=== PATIENT | female | born 1945 | race Caucasian/White ===

== ENCOUNTER → 2018-01-13 07:04 | Outpatient (CLI) | payer MEDICARE, SELFPAY ==
--- NOTE | 2018-01-13 07:07 | BI_ITS ---
MAMMOGRAPHY - BILATERAL SCREENING REASON FOR EXAM: Female, 72 years old. Routine annual screening examination. PERTINENT HISTORY: Non-contributory. TECHNIQUE: Digital bilateral breast fang (3D mammographic acquisition) in the CC and MLO projections. 2-D mediolateral oblique (MLO) and craniocaudad (CC) views of both breasts were obtained. CAD: Full Field Digital Mammography with Computer Added Detection was performed. COMPARISON: Comparison made with prior study examination December 30, 2013. FINDINGS: Breast Composition: The breasts are almost entirely fatty. There are no dominant masses or suspicious calcifications. No other significant abnormalities are identified. There has been no significant change since the prior study. BI/SCREENING MAMM (CAD), BILAT IMPRESSION: Stable bilateral screening mammogram. Yearly follow-up mammogram recommended. (A) ASSESSMENT CATEGORY: BIRADS Category 1: Negative. A letter regarding these results will be sent to the patient by the facility within 30 days. Approximately 10% of breast cancers are not detected by mammography. A normal mammogram should not delay biopsy of a clinically suspicious abnormality. [id number] Electronically Signed: Aris Ventura MD at 10:45 EDT Tel [phone], Service support ,
== END ==
PROVIDERS: Family Provider Internal Medicine; PCP Internal Medicine; Visit Provider Internal Medicine
DX: Z12.31 Encounter for screening mammogram for malignant neoplasm of breast (principal)
CPT/HCPCS: 77063; 77067

== ENCOUNTER → 2018-01-18 09:07 | Outpatient (CLI) | payer MEDICARE, SELFPAY ==
[2018-01-18 09:44] LABS: Absolute Neutrophil Count 5.2 X10^3/uL (2.0-7.7); Basophil# 0.07 X10^3/uL; Basophil% 0.7 % (0-1); Eosinophils% 9.3 % (0-5); Hematocrit 36.9 % (37-47); Hemoglobin 12.2 g/dl (12.0-15.0); Mean Corp Hgb Conc 33.1 g/gl (32-36); Mean Corpuscular Hgb 28.8 pg (27.0-32.0); Mean Corpuscular Volume 87.2 fL (81-99); Mean Platelet Vol. 9.9 fl (6.2-12.0); Monocyte# 0.61 X10^3/uL; Monocyte% 6.3 % (0-10); Neutrophil # 5.15 X10^3/uL (2.7-7.7); Neutrophil % 53.4 % (47-70); Platelet Count 340 K/mm3 (150-450); RBC Distribution Width CV 13.8 % (11.6-14.6); RBC Distribution Width SD 43.3 fl (35.1-43.9); Red Blood Count 4.23 M/mm3 (4.2-5.4); White Blood Count 9.7 K/mm3 (4.4-11.0)
[2018-01-18 09:45] LABS: POSITIVE COUNT NO; POSITIVE DIFFERENTIAL NO; POSITIVE MORPHOLOGY NO
[2018-01-18 10:09] LABS: Hemoglobin A1c 8.2 % (4.2-6.3)
[2018-01-18 10:45] LABS: ALB/GLOB Ratio 0.9 RATIO (0.9-2.4); AST(SGOT) 20 U/L (15-37); Alanine Aminotransfer ALT/SGPT 31 U/L (13-56); Albumin, Serum 3.5 g/dL (3.2-5.0); Alkaline Phosphatase 95 U/L (45-117); Anion Gap 8 (5-15); BUN 17 mg/dL (7-18); BUN/Creat Ratio 23.1 RATIO (10-20); Calcium,Total 8.7 mg/dL (8.5-10.1); Chloride 102 mmol/L (98-107); Cholesterol 168 mg/dL (200); Creatinine, Serum 0.74 mg/dL (0.55-1.02); EST Glomerular Filtration Rate 82 mL/min (>60); Est Glom Filt Rate - Afr Amer 99 mL/min (>60); Globulin 3.7 g/dL (2.2-4.2); Glucose 189 mg/dL (74-106); High Density Lipoprotein 38 mg/dL; Protein, Total 7.2 g/dL (6.4-8.2); Sodium Level 139 mmol/L (136-145); T4 Free Direct 0.97 ng/dL (0.76-1.46); Thyroid Stim Hormone (TSH) 1.08 uIU/mL (0.358-3.74); Triglycerides 273 mg/dL; Very Low Density Lipoprotein 55 mg/dL (5-40)
== END ==
PROVIDERS: Family Provider Internal Medicine; PCP Internal Medicine; Referring Provider Internal Medicine; Visit Provider Internal Medicine
DX: E11.9 Type 2 diabetes mellitus without complications (principal); E03.9 Hypothyroidism, unspecified; I10 Essential (primary) hypertension; J30.2 Other seasonal allergic rhinitis
CPT/HCPCS: 36415; 80053; 80061; 83036; 84439; 84443; 85025

== ENCOUNTER 2018-02-25 09:14 | Outpatient (RCR) | payer MEDICARE, SELFPAY | END 2018-02-26 23:59 | LOC: DC 09:14 | PROVIDERS: Family Provider Internal Medicine; PCP Internal Medicine; Referring Provider Internal Medicine; Visit Provider Internal Medicine | DX: E11.9 Type 2 diabetes mellitus without complications (principal); Z71.3 Dietary counseling and surveillance | CPT/HCPCS: G0108 ==

== ENCOUNTER 2018-03-01 08:52 | Outpatient (RCR) | payer MEDICARE, SELFPAY ==
[2018-01-22 14:26] VITALS: BMI 32.3
== END 2018-03-29 23:59 ==
LOC: DC 08:52
PROVIDERS: Family Provider Internal Medicine; PCP Internal Medicine; Referring Provider Internal Medicine; Visit Provider Internal Medicine
DX: E11.9 Type 2 diabetes mellitus without complications (principal); Z71.3 Dietary counseling and surveillance
CPT/HCPCS: 97802

== ENCOUNTER → 2018-04-22 09:33 | Outpatient (CLI) | payer MEDICARE, SELFPAY ==
[2018-03-03 10:43] VITALS: BMI 30.9
[2018-04-22 11:33] LABS: Hemoglobin A1c 7.7 % (4.2-6.3)
== END ==
PROVIDERS: Family Provider Internal Medicine; PCP Internal Medicine; Referring Provider Internal Medicine; Visit Provider Internal Medicine
DX: E11.9 Type 2 diabetes mellitus without complications (principal)
CPT/HCPCS: 36415; 83036

== ENCOUNTER 2018-04-26 14:00 | Outpatient (RCR) | payer MEDICARE, SELFPAY ==
[2018-03-03 10:43] VITALS: BMI 30.9
== END 2018-04-29 23:59 ==
LOC: DC 14:00
PROVIDERS: Family Provider Internal Medicine; PCP Internal Medicine; Referring Provider Internal Medicine; Visit Provider Internal Medicine
DX: E11.9 Type 2 diabetes mellitus without complications (principal); Z71.3 Dietary counseling and surveillance
CPT/HCPCS: 36415; 83036; 97803; G0108; G0109

== ENCOUNTER 2018-04-27 18:21 | Emergency (ER) | payer MEDICARE, SELFPAY ==
[2018-04-26 09:37] VITALS: BMI 30.9
[2018-04-27 18:22] VITALS: BP 165/76; PULSE 73; RESP 16; TEMP 36.7; O2SAT 96; BMI 31.4
--- NOTE | 2018-04-27 19:25 | RAD_ITS ---
STUDY: X-RAY - LEFT ELBOW REASON FOR EXAM: Female, 72 years old. Fall. Pain. TECHNIQUE: 3 view(s) of the elbow. COMPARISON: None. FINDINGS: There is no evidence of fracture or dislocation. There are no significant degenerative changes. There are no radiodense foreign bodies. RAD/Elbow min 3 Views IMPRESSION: No fracture or dislocation. Electronically Signed: Geraldo Matias, at 19:46 EST Tel , Service support ,
--- NOTE | 2018-04-27 19:59 | ED.VISSUMM ---
- ER Visit Summary Date of Service: 04/27/18 Chief Complaint: Elbow laceration History of Present Illness: The patient is a 72 F presents to the emergency department elbow injury. Patient was in her normal state of health. She is going outside her house and slipped on the handicap ramp. She fell striking her left elbow and slid down on her back. She struck her head but did not lose consciousness. She states she applied a dressing to the elbow, but is continued to bleed. She denies other injury. The patient's tetanus is up-to-date. She is otherwise been in her normal state of health. Physical Examination: Exam is relatively unremarkable. Patient is a 1 cm C-shaped laceration over the left elbow. She does have some pain with extension. Head is normal cephalic, atraumatic. Pupils equal round reactive. Neck nontender. Chest nontender. Abdomen soft nontender nondistended. Pelvis is stable. No other injuries. Test Results: [] Emergency Department Course and Treatment: X-rays were obtained. There is no evidence of acute fracture. The patient's wound was anesthetized. It was irrigated and closed with a mattress suture. She tolerated this without issue. She is placed in a bacitracin dressing. She will be discharged home. Treatment Plan: [] Disposition: Discharge Impression: 1. Left elbow laceration status post fall This note was generated with [employer] dictation software. It may contain incorrect words, spelling, and punctuation that were not noted in review of the chart prior to signing ED Disposition - Plan for ED Patient: Chief Complaint: Fall Instructions: ED Laceration All Referrals: Bubba Zhu MD [Primary Care Provider] - 10 Day for suture removal
[2018-04-27 20:34] VITALS: BP 148/98; PULSE 97; RESP 14; O2SAT 99
== END 2018-04-27 20:34 | disposition home or self-care (01) ==
LOC: ED 19:37
PROVIDERS: Emergency Provider Emergency Medicine; Family Provider Internal Medicine; PCP Internal Medicine
DX: S51.012A Laceration without foreign body of left elbow, initial encounter (principal); W10.2XXA Fall (on)(from) incline, initial encounter; Y93.01 Activity, walking, marching and hiking; Y92.008 Other place in unspecified non-institutional (private) residence as the place of occurrence of the external cause; I10 Essential (primary) hypertension
CPT/HCPCS: 12001; 73080; 99283

== ENCOUNTER 2018-05-12 12:16 | Outpatient (RCR) | payer MEDICARE, SELFPAY ==
[2018-04-30 01:29] VITALS: BMI 30.9
== END 2018-05-27 23:59 ==
LOC: DC 12:16
PROVIDERS: Family Provider Internal Medicine; PCP Internal Medicine; Referring Provider Internal Medicine; Visit Provider Internal Medicine
DX: E11.9 Type 2 diabetes mellitus without complications (principal); Z71.3 Dietary counseling and surveillance
CPT/HCPCS: G0109

== ENCOUNTER 2018-06-22 09:27 | Outpatient (RCR) | payer MEDICARE, SELFPAY ==
[2018-05-28 01:10] VITALS: BMI 31.4
== END 2018-06-27 23:59 ==
LOC: DC 09:27
PROVIDERS: Family Provider Internal Medicine; PCP Internal Medicine; Referring Provider Internal Medicine; Visit Provider Internal Medicine
DX: E11.9 Type 2 diabetes mellitus without complications (principal); Z71.3 Dietary counseling and surveillance
CPT/HCPCS: 97803

== ENCOUNTER 2018-07-01 09:28 | Outpatient (RCR) | payer MEDICARE, SELFPAY ==
[2018-05-28 01:10] VITALS: BMI 31.4
== END 2018-07-27 23:59 ==
LOC: DC 09:28
PROVIDERS: Family Provider Internal Medicine; PCP Internal Medicine; Referring Provider Internal Medicine; Visit Provider Internal Medicine
DX: E11.9 Type 2 diabetes mellitus without complications (principal); Z71.3 Dietary counseling and surveillance
CPT/HCPCS: G0109

== ENCOUNTER → 2018-07-20 09:39 | Outpatient (CLI) | payer MEDICARE, SELFPAY ==
[2018-05-28 01:10] VITALS: BMI 31.4
[2018-07-20 11:35] LABS: Microalbumin,Random Urine 24.2 mg/L (NO RANGE EST.); Microalbumin:Creatinine Ratio 22.2 mg/g CRE (<30 mg/g CRE)
[2018-07-20 11:49] LABS: Anion Gap 4 (5-15); BUN 18 mg/dL (7-18); BUN/Creat Ratio 28.1 RATIO (10-20); Calcium,Total 9.2 mg/dL (8.5-10.1); Chloride 104 mmol/L (98-107); Creatinine, Serum 0.64 mg/dL (0.55-1.02); EST Glomerular Filtration Rate 96 mL/min (>60); Est Glom Filt Rate - Afr Amer 116 mL/min (>60); Glucose 131 mg/dL (74-106); Potassium 3.8 mmol/L (3.5-5.1); Sodium Level 137 mmol/L (136-145)
[2018-07-20 11:58] LABS: Hemoglobin A1c 7.8 % (4.2-6.3)
== END ==
PROVIDERS: Family Provider Internal Medicine; PCP Internal Medicine; Referring Provider Internal Medicine; Visit Provider Internal Medicine
DX: E11.9 Type 2 diabetes mellitus without complications (principal)
CPT/HCPCS: 36415; 80048; 82043; 82570; 83036

== ENCOUNTER 2018-10-07 13:24 | Outpatient (RCR) | payer MEDICARE, SELFPAY ==
[2018-07-26 08:55] VITALS: BMI 31.4
== END 2018-10-07 23:59 | disposition home or self-care (01) ==
LOC: DC 13:24
PROVIDERS: Family Provider Internal Medicine; PCP Internal Medicine; Referring Provider Internal Medicine; Visit Provider Internal Medicine
DX: E11.9 Type 2 diabetes mellitus without complications (principal); Z71.3 Dietary counseling and surveillance
CPT/HCPCS: G0109

== ENCOUNTER → 2019-01-28 07:37 | Outpatient (CLI) | payer MEDICARE, SELFPAY ==
[2018-12-01 14:44] VITALS: BMI 31.4
[2019-01-28 08:10] LABS: Absolute Lymphocyte Count 3.25 X10^3/uL (0.83-4.51); Absolute Neutrophil Count 5.2 X10^3/uL (2.0-7.7); Basophil# 0.04 X10^3/uL; Basophil% 0.4 % (0-1); Eosinophil# 0.32 X10^3/uL; Eosinophils% 3.3 % (0-5); Hematocrit 35.3 % (37-47); Hemoglobin 11.5 g/dL (12.0-15.0); Lymphocyte # 3.25 X10^3/ul (4.0); Lymphocyte % 33.9 % (19-41); Mean Corp Hgb Conc 32.6 g/dL (32-36); Mean Corpuscular Volume 88.9 fL (81-99); Mean Platelet Vol. 9.8 fl (6.2-12.0); Monocyte# 0.76 X10^3/uL; Monocyte% 7.9 % (0-10); NRBC Flagged by Analyzer 0 % (0-5); Neutrophil % 54.2 % (47-70); Platelet Count 332 K/mm3 (150-450); RBC Distribution Width CV 13.2 % (11.6-14.6); RBC Distribution Width SD 42.9 fl (35.1-43.9); Red Blood Count 3.97 M/mm3 (4.2-5.4); White Blood Count 9.6 K/mm3 (4.4-11.0)
[2019-01-28 08:42] LABS: Hemoglobin A1c 7.6 % (4.2-6.3)
[2019-01-28 08:43] LABS: Microalbumin,Random Urine 17.8 mg/L (NO RANGE EST.); Microalbumin:Creatinine Ratio 13.3 mg/g CRE (<30 mg/g CRE)
[2019-01-28 08:53] LABS: AST(SGOT) 29 U/L (15-37); Alanine Aminotransfer ALT/SGPT 41 U/L (13-56); Albumin, Serum 3.7 g/dL (3.2-5.0); Alkaline Phosphatase 60 U/L (45-117); Anion Gap 7 (5-15); BUN 20 mg/dL (7-18); BUN/Creat Ratio 26.9 RATIO (10-20); Calcium,Total 9.3 mg/dL (8.5-10.1); Chloride 106 mmol/L (98-107); Cholesterol 180 mg/dL (200); Creatinine, Serum 0.74 mg/dL (0.55-1.02); EST Glomerular Filtration Rate 81 mL/min (>60); Est Glom Filt Rate - Afr Amer 98 mL/min (>60); Globulin 3.6 g/dL (2.2-4.2); Glucose 165 mg/dL (74-106); High Density Lipoprotein 47 mg/dL; Potassium 3.9 mmol/L (3.5-5.1); Protein, Total 7.3 g/dL (6.4-8.2); Sodium Level 141 mmol/L (136-145); Thyroid Stim Hormone (TSH) 0.82 uIU/mL (0.358-3.74); Triglycerides 233 mg/dL; Very Low Density Lipoprotein 47 mg/dL (5-40)
== END ==
PROVIDERS: Family Provider Internal Medicine; PCP Internal Medicine; Referring Provider Internal Medicine; Visit Provider Internal Medicine
DX: E11.9 Type 2 diabetes mellitus without complications (principal); E03.9 Hypothyroidism, unspecified
CPT/HCPCS: 36415; 80053; 80061; 82043; 82570; 83036; 84443; 85025

== ENCOUNTER → 2019-05-04 09:15 | Outpatient (CLI) | payer MEDICARE, SELFPAY ==
[2019-05-02 08:45] VITALS: BMI 31.6
--- NOTE | 2019-05-04 09:20 | RAD_ITS ---
STUDY: X-RAY - LEFT FOOT CLINICAL: Achilles tendon pain for 2 months, no specific injury. TECHNIQUE: 2 view(s) of the foot. COMPARISON: None. FINDINGS: There are posterior and plantar calcaneal enthesophytes. Otherwise, unremarkable talus, calcaneus, and tarsal bones. Normal visualized subtalar, talonavicular, calcaneocuboid, tarsal and tarsometatarsal articulations. Normal metatarsi. Normal metatarsophalangeal joint of the great toe. Normal tibial and fibular sesamoid bones. Normal interphalangeal joint of the great toe. Normal phalanges of the great toe. Normal second through fifth metatarsophalangeal joints. There is joint space narrowing of the interphalangeal joints and phalanges of the lesser toes. The soft tissue structures are unremarkable. 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 Electronically Signed: Richie Meehan MD at 10:47 EST Tel , Service support ,
== END ==
PROVIDERS: PCP Internal Medicine; Referring Provider Internal Medicine; Visit Provider Internal Medicine
DX: S86.012A Strain of left Achilles tendon, initial encounter (principal); X58.XXXA Exposure to other specified factors, initial encounter; M19.072 Primary osteoarthritis, left ankle and foot
CPT/HCPCS: 73620

== ENCOUNTER → 2019-10-07 09:20 | Outpatient (CLI) | payer MEDICARE, SELFPAY ==
[2019-08-10 09:22] VITALS: BMI 31.6
[2019-10-07 13:01] LABS: Anion Gap 5 (5-15); BUN 18 mg/dL (7-18); Calcium,Total 9.2 mg/dL (8.5-10.1); Chloride 101 mmol/L (98-107); Creatinine, Serum 0.78 mg/dL (0.55-1.02); EST Glomerular Filtration Rate 76 mL/min (>60); Est Glom Filt Rate - Afr Amer 92 mL/min (>60); Glucose 159 mg/dL (74-106); Potassium 4.2 mmol/L (3.5-5.1); Sodium Level 137 mmol/L (136-145)
[2019-10-07 13:08] LABS: Hemoglobin A1c 7.4 % (3.8-5.6)
== END ==
PROVIDERS: PCP Internal Medicine; Referring Provider Internal Medicine; Visit Provider Internal Medicine
DX: E11.9 Type 2 diabetes mellitus without complications (principal)
CPT/HCPCS: 36415; 80048; 83036

== ENCOUNTER → 2019-10-11 15:27 | Outpatient (CLI) | payer MEDICARE, SELFPAY ==
[2019-10-11 14:22] VITALS: BMI 31.6
[2019-10-11 17:13] LABS: Absolute Lymphocyte Count 3.32 X10^3/uL (0.83-4.51); Absolute Neutrophil Count 7.7 X10^3/uL (2.0-7.7); Basophil# 0.08 X10^3/uL; Basophil% 0.6 % (0-1); Eosinophil# 0.51 X10^3/uL; Eosinophils% 4.1 % (0-5); Hematocrit 35.7 % (37-47); Hemoglobin 11.5 g/dL (12.0-15.0); Lymphocyte # 3.32 X10^3/ul (4.0); Lymphocyte % 26.7 % (19-41); Mean Corp Hgb Conc 32.2 g/dL (32-36); Mean Corpuscular Hgb 29.1 pg (27.0-32.0); Mean Corpuscular Volume 90.4 fL (81-99); Mean Platelet Vol. 10.3 fl (6.2-12.0); Monocyte# 0.77 X10^3/uL; Monocyte% 6.2 % (0-10); NRBC Flagged by Analyzer 0 % (0-5); Neutrophil # 7.68 X10^3/uL (2.7-7.7); Neutrophil % 61.9 % (47-70); Platelet Count 386 K/mm3 (150-450); RBC Distribution Width CV 13.5 % (11.6-14.6); RBC Distribution Width SD 44.4 fl (35.1-43.9); Red Blood Count 3.95 M/mm3 (4.2-5.4); White Blood Count 12.4 K/mm3 (4.4-11.0)
[2019-10-11 17:31] LABS: Thyroid Stim Hormone (TSH) 1.64 uIU/mL (0.358-3.74)
== END ==
PROVIDERS: PCP Internal Medicine; Referring Provider Internal Medicine; Visit Provider Internal Medicine
DX: G47.33 Obstructive sleep apnea (adult) (pediatric) (principal); E03.9 Hypothyroidism, unspecified
CPT/HCPCS: 36415; 84443; 85025

== ENCOUNTER → 2019-10-13 12:21 | Outpatient (CLI) | payer MEDICARE, SELFPAY ==
[2019-10-11 14:22] VITALS: BMI 31.6
--- NOTE | 2019-10-13 12:23 | EKG12_ITS ---
Test Reason : PALPS Blood Pressure : / mmHG Vent. Rate : 069 BPM Atrial Rate : 069 BPM P-R Int : 168 ms QRS Dur : 080 ms QT Int : 378 ms P-R-T Axes : 059 050 057 degrees QTc Int : 405 ms Normal sinus rhythm Normal ECG Confirmed by RICK NORIEGA, LUISITO ([id number]), editor managing director CHAU OJEDA ([id number]) on 10/17/2019 10:52:16 A M Referred By: Bubba Zhu Confirmed By:SHARDA CABRERA MD
== END ==
PROVIDERS: PCP Internal Medicine; Referring Provider Internal Medicine; Visit Provider Internal Medicine
DX: I10 Essential (primary) hypertension (principal)
CPT/HCPCS: 93005

== ENCOUNTER → 2019-12-13 13:00 | Outpatient (CLI) | payer MEDICARE, SELFPAY ==
[2019-12-01 06:37] VITALS: BMI 31.4
== END ==
PROVIDERS: PCP Internal Medicine; Referring Provider Internal Medicine Critical Care Medicine; Visit Provider Internal Medicine Critical Care Medicine
DX: G47.33 Obstructive sleep apnea (adult) (pediatric) (principal)
CPT/HCPCS: 98960; G0463

== ENCOUNTER → 2020-01-30 10:58 | Outpatient (CLI) | payer MEDICARE, SELFPAY ==
[2020-01-30 10:10] VITALS: BMI 32.3
[2020-01-30 12:39] LABS: Absolute Lymphocyte Count 2.92 X10^3/uL (0.83-4.51); Absolute Neutrophil Count 5.7 X10^3/uL (2.0-7.7); Basophil# 0.07 X10^3/uL; Basophil% 0.7 % (0-1); Eosinophil# 0.87 X10^3/uL; Eosinophils% 8.5 % (0-5); Hematocrit 37.3 % (37-47); Hemoglobin 11.8 g/dL (12.0-15.0); Lymphocyte # 2.92 X10^3/ul (4.0); Lymphocyte % 28.5 % (19-41); Mean Corp Hgb Conc 31.6 g/dL (32-36); Mean Corpuscular Hgb 28.2 pg (27.0-32.0); Mean Corpuscular Volume 89.2 fL (81-99); Mean Platelet Vol. 9.9 fl (6.2-12.0); Monocyte# 0.68 X10^3/uL; Monocyte% 6.6 % (0-10); NRBC Flagged by Analyzer 0 % (0-5); Neutrophil # 5.68 X10^3/uL (2.7-7.7); Neutrophil % 55.3 % (47-70); Platelet Count 427 K/mm3 (150-450); RBC Distribution Width CV 13.5 % (11.6-14.6); RBC Distribution Width SD 44.3 fl (35.1-43.9); Red Blood Count 4.18 M/mm3 (4.2-5.4); White Blood Count 10.3 K/mm3 (4.4-11.0)
[2020-01-30 12:54] LABS: Microalbumin,Random Urine 16.2 mg/L (NO RANGE EST.); Microalbumin:Creatinine Ratio 23.2 mg/g CRE (<30 mg/g CRE)
[2020-01-30 13:05] LABS: ALB/GLOB Ratio 0.9 RATIO (0.9-2.4); AST(SGOT) 38 U/L (15-37); Alanine Aminotransfer ALT/SGPT 45 U/L (13-56); Albumin, Serum 3.7 g/dL (3.2-5.0); Alkaline Phosphatase 69 U/L (45-117); Anion Gap 8 (5-15); BUN 16 mg/dL (7-18); BUN/Creat Ratio 18.8 RATIO (10-20); Calcium,Total 9.2 mg/dL (8.5-10.1); Chloride 101 mmol/L (98-107); Cholesterol 183 mg/dL (200); Creatinine, Serum 0.85 mg/dL (0.55-1.02); EST Glomerular Filtration Rate 69 mL/min (>60); Est Glom Filt Rate - Afr Amer 84 mL/min (>60); Globulin 3.9 g/dL (2.2-4.2); Glucose 227 mg/dL (74-106); High Density Lipoprotein 48 mg/dL; Potassium 3.6 mmol/L (3.5-5.1); Protein, Total 7.6 g/dL (6.4-8.2); Sodium Level 138 mmol/L (136-145); Triglycerides 354 mg/dL; Very Low Density Lipoprotein 71 mg/dL (5-40)
== END ==
PROVIDERS: PCP Internal Medicine; Referring Provider Internal Medicine; Visit Provider Internal Medicine
DX: E11.9 Type 2 diabetes mellitus without complications (principal)
CPT/HCPCS: 36415; 80053; 80061; 82043; 82570; 85025

== ENCOUNTER → 2020-03-12 | Outpatient (CLI) | payer MEDICARE, SELFPAY ==
[2020-03-12 12:47] VITALS: BMI 31.4
[2020-03-12 13:16] LABS: Bacteria 0 SEEN /hpf (None Seen); Mucous, Urine 0 SEEN /hpf (<or=2+); Red Blood Cells-Urine 0 SEEN /hpf (0-5)
[2020-03-12 15:43] LABS: Glucose, Dipstick 1000 mg/dl (Normal); Ketone-Dipstick 5 mg/dl (Negative); Leukocyte Esterase-Dipstick Negative /ul (Negative); Nitrite-Dipstick Negative (Negative); Occult Blood-Urine Negative /ul (Negative); Protein-Dipstick 30 mg/dl (Negative); Urine Bilirubin Dipstick Negative (Negative); Urine Urobilinogen Normal (Normal)
[2020-03-12 15:44] LABS: Color, Urine Yellow (Yellow); Urine Clarity Clear (Clear)
[2020-03-12 15:47] LABS: Squamous Epithelial Cells - UA 0-5 SEEN /hpf (5-10); White Blood Cells 0-5 SEEN /hpf (0-5)
== END | disposition home or self-care (01) ==
LOC: LABSPEC 13:15
PROVIDERS: PCP Internal Medicine; Referring Provider Internal Medicine; Visit Provider Internal Medicine
DX: N39.0 Urinary tract infection, site not specified (principal)
CPT/HCPCS: 81001; 87086; 87088

== ENCOUNTER → 2020-05-23 09:07 | Outpatient (CLI) | payer MEDICARE, SELFPAY ==
[2020-04-21 10:57] VITALS: BMI 31.4
[2020-05-23 09:10] LABS: Bacteria 0 SEEN /hpf (None Seen); Mucous, Urine 0 SEEN /hpf (<or=2+)
[2020-05-23 12:43] LABS: Color, Urine Yellow (Yellow); Glucose, Dipstick 100 mg/dl (Normal); Ketone-Dipstick 5 mg/dl (Negative); Leukocyte Esterase-Dipstick 500 /ul (Negative); Nitrite-Dipstick Negative (Negative); Occult Blood-Urine 50 /ul (Negative); Protein-Dipstick 100 mg/dl (Negative); Specific Gravity, Urine 1.025 (1.002-1.030); Urine Bilirubin Dipstick Negative (Negative); Urine Clarity Cloudy (Clear); Urine Urobilinogen Normal (Normal)
[2020-05-23 13:08] LABS: Red Blood Cells-Urine 0-5 SEEN /hpf (0-5)
[2020-05-23 13:09] LABS: Squamous Epithelial Cells - UA 0-5 SEEN /hpf (5-10)
[2020-05-23 13:13] LABS: White Blood Cells >100 SEEN /hpf (0-5)
== END ==
PROVIDERS: PCP Internal Medicine; Referring Provider Internal Medicine; Visit Provider Internal Medicine
DX: N39.0 Urinary tract infection, site not specified (principal)
CPT/HCPCS: 81001; 87086; 87088

== ENCOUNTER 2020-05-31 08:22 | Outpatient (RCR) | payer MEDICARE, SELFPAY ==
[2020-05-31] MEDS: COVID-19 VACC, MRNA(PFIZER)/PF 30 MCG/0.3 ML SYRINGE IM (10:10)
[2020-06-21] MEDS: COVID-19 VACC, MRNA(PFIZER)/PF 30 MCG/0.3 ML SYRINGE IM (10:30)
== END 2020-05-31 23:59 ==
LOC: IMMUN 08:22
PROVIDERS: PCP Internal Medicine; Visit Provider Family Medicine
DX: Z23 Encounter for immunization (principal)
CPT/HCPCS: 0001A; 0002A

== ENCOUNTER → 2020-09-12 08:31 | Outpatient (CLI) | payer MEDICARE, SELFPAY ==
[2020-09-12 08:08] VITALS: BMI 31.4
[2020-09-12 12:35] LABS: Anion Gap 7 (5-15); BUN 19 mg/dL (7-18); BUN/Creat Ratio 26.2 RATIO (10-20); Calcium,Total 9.5 mg/dL (8.5-10.1); Chloride 105 mmol/L (98-107); Cholesterol 171 mg/dL (200); Creatinine, Serum 0.72 mg/dL (0.55-1.02); EST Glomerular Filtration Rate 83 mL/min (>60); Est Glom Filt Rate - Afr Amer 100 mL/min (>60); Glucose 141 mg/dL (74-106); High Density Lipoprotein 48 mg/dL; Potassium 4.4 mmol/L (3.5-5.1); Sodium Level 140 mmol/L (136-145); Triglycerides 193 mg/dL; Very Low Density Lipoprotein 39 mg/dL (5-40)
== END ==
PROVIDERS: PCP Internal Medicine; Referring Provider Internal Medicine; Visit Provider Internal Medicine
DX: E11.9 Type 2 diabetes mellitus without complications (principal)
CPT/HCPCS: 36415; 80048; 80061

== ENCOUNTER → 2020-09-20 09:50 | Outpatient (CLI) | payer MEDICARE, SELFPAY ==
[2020-09-12 08:08] VITALS: BMI 31.4
--- NOTE | 2020-09-20 10:00 | BD_ITS ---
STUDY: DUAL ENERGY X-RAY ABSORPTIOMETRY / DXA REASON FOR EXAM: Female, 75 years old. Post menopausal TECHNIQUE: Bone Mineral Density (BMD) measurements of lumbar spine and bilateral hips were obtained. COMPARISON: None. FINDINGS: Lumbar Spine (L1-L4): g/cm2 (1.198) / T-score (0.2) / Z-score (1.9) Findings are suggestive of normal bone density with a low fracture risk. Left Femur Total: g/cm2 (0.983) / T-score (-0.2) / Z-score (1.6) Left Femoral Neck: g/cm2 (0.802) / T-score (-1.7) / Z-score (0.3) Right Femur Total: g/cm2 (0.900) / T-score (-0.9) / Z-score (1.0) Right Femoral Neck: g/cm2 (0.821) / T-score (-1.6) / Z-score (0.4) BD/Dexa Bone Density Study IMPRESSION: The patient is considered osteopenic as outlined below according to World Ko Organization (WHO) criteria with a moderate fracture risk. Reference Information: The T-score is the number of standard deviations above or below the standard which is normal for young adults at their peak bone mineral density. The World Health Organization (WHO) interprets the T-scores as follows: Above -1 Normal bone density Between -1 and -2.5 Osteopenia Equal to / or below -2.5 Osteoporosis As a practical clinical guideline, osteopenia may be graded as follows: Mild -1 through -1.5 Moderate -1.6 through -2.0 Severe -2.1 through -2.4 The Z-score is the number of standard deviations above or below age-matched controls. A Z-score of less than -1.5 would be considered abnormal. References: 1. NIH Osteoporosis and Related Bone Diseases www osteo.org 2. International Society for Clinical Densitometry www iscd.org 3. National Osteoporosis Foundation www nof.org Electronically Signed: Aris Ventura MD at 8:13 EDT , Service support ,
== END ==
PROVIDERS: PCP Internal Medicine; Referring Provider Internal Medicine; Visit Provider Internal Medicine
DX: Z78.0 Asymptomatic menopausal state (principal)
CPT/HCPCS: 77080

== ENCOUNTER → 2020-12-27 10:59 | Outpatient (CLI) | payer MEDICARE, SELFPAY ==
--- NOTE | 2020-12-27 11:03 | RAD_ITS ---
STUDY: X-RAY - PELVIS AND RIGHT HIP REASON FOR EXAM: Female, 75 years old. Right hip pain TECHNIQUE: XR Hip Unilateral with Pelvis when performed; 2-3 Views COMPARISON: None. FINDINGS: There is a non-specific bowel gas pattern. There are multiple calcified phleboliths. Degenerative findings in the lumbar spine. Normal bilateral iliac wings, sacroiliac joints and visualized sacrum. Normal bilateral superior and inferior pubic rami. Normal pubic symphysis. Normal bilateral ischial tuberosities. Normal visualized femoral head. Normal acetabulum. There is mild articular joint space narrowing of the hip. RAD/HIP, UNI W/ Pelvis 2-3 Views IMPRESSION: Mild degenerative changes of both hips. No acute fracture. Electronically Signed: Jake Wood MD at 21:40 EDT , Service support ,
== END ==
PROVIDERS: PCP Internal Medicine; Referring Provider Internal Medicine; Visit Provider Internal Medicine
DX: M25.551 Pain in right hip (principal)
CPT/HCPCS: 73502

== ENCOUNTER 2021-01-03 09:30 | Outpatient (RCR) | payer MEDICARE, SELFPAY ==
--- NOTE | 2020-12-17 14:09 | HP.PTEVAL_ITS ---
Patient's Visit Information ALIZA PAYAN is a 75 year old F referred to Physical Therapy by Dr. Bubba Zhu MD with a diagnosis of RIGHT HIP PAIN. Date of Evaluation: 12/17/20 Physical Therapist: Inderjit Astorga PT, Cert MDT, OCS - Visit Plan Frequency: 2x /Week Duration: 4 Weeks Plan: PT INTERVENTIOSN STRETCHING RIGHT HIP ,STRENGTHENING RIGHT HIP ,MODALTIES ,STICK TO I TBAND AND FUNCTIONAL STRENGTHENING - Subjective This 75 y/o female presents to physical therapy with right hip pain. Patient has right lateral hip pain to knee. Symptoms worse with walking 1/2 block tightness up incline , extended standing. No symptoms with bending lifting . Alleviating factors and sitting. Seen DR recommended PT and will get x-rays. Denies paresthesia/tingling . Sleeping good. Bowel/bladder -. Coughing/sneezing -. No Abnormal night pain. No h/o of trauma or back issues. Patient pain affects QOL and function with extended walking. Goals to decrease lateral hip pain . SOCAIL: . 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 GAIT: reciprocal pattern ER of hip right > left mild antalgic gait. PALAPTION: tender greater trochanter ,I T band. NEURO: denies paresthesia /tingling. PROM HIP : flexion 100 degrees, IR 35 degrees, ER 60 DEGREEES. LUMBAR ROM: flexion WFL, extension mod loss, side glides mod loss. pain right of SI. MMT: hip flexion right 3+/5,abduction 3+/5, left 4-/5,qu ads/hams 4/5.ankle 4/5. FLEXABLITY: hams WFL piriformis/mild mod tight - Special Tests L/S Slump test left side: Negative L/S Slump test right side: Negative L/S Left Straight Leg Raise: Negative L/S Right Straight Leg Raise: Negative Lumbar Standing: Flexion - Mechanical Response: Increases motion Lumbar Standing: Flexion - Symptoms During Testing: No effect Lumbar Standing: Flexion - Symptoms After Testing: No effect Lumbar Standing: Extension - Mechanical Response: No effect Lumbar Standing: Extension - Symptoms During Testing: No effect Lumbar Standing: Extension - Symptoms After Testing: No effect Lumbar Standing: Right Side Glides - Mechanical Response: No effect Lumbar Standing: Right Side [place] - Symptoms During Testing: Increases Lumbar Standing: Right Side [place] - Symptoms After Testing: No worse Comments:: si Lumbar Standing: Left Side [place] - Mechanical Response: No effect Lumbar Standing: Left Side [place] - Symptoms During Testing: No effect Lumbar Standing: Left Side [place] - Symptoms After Testing: No effect R Hip Scour: Negative R Hip Quadrant - Intraarticular Pathology: Negative R Hip DIDI - Intraarticular Pathology: Negative R Hip Trendelenberg - Glut Medius: Negative R Hip Wilfredo - IT Band: Negative - Balance/Special Test Scores Lower Extremity Functional Score: 37 - Goals Goal 1:: I with HEP to decrease hip pain Goal Time Frame: 4-6 Weeks Goal 2:: Patient to degrees lateral hip pain by 50% improvement to improve function with gait Goal Time Frame: 4-6 Weeks Goal 3:: Increase strength right hip by 4-/5 hip abd/flexion to improve walking 1/2 mile Goal Time Frame: 4-6 Weeks Goal 4:: Patient improve LFES score by 5 points or > to improve gait 1/ 2mile Goal Time Frame: 4-6 Weeks Goal 5:: Patient able to walk 1/2 mile without symptoms lateral hip Goal Time Frame: 4-6 Weeks - Rehabilitation Potential Physical Therapy Diagnosis: This patient has right lateral hip pain bursae ,lateral I T BAND tender weakness hip, impairs walking 1/2 block thus benefit from skilled PT Rehabilitation Potential: Good - Anticipated Interventions Patient/Client Instruction: Educate patient on: Condition, Plan of Care For the Purpose of:: To decrease pain, To increase ROM, To improve muscle performance and motor function, To improve ability to perform ADL's, To increase tolerance to activity/condition/position, To improve performance and independence with ADL's, To improve ability of physical actions for home/community/work/leisure, To improve health of tissue, To decrease soft tissue restriction, To increase flexibility/ROM, To reduce risk of recurrence Therapeutic Exercise to Include: Strength training, Endurance training, Balance training, Postural training, Flexibilty training, Active ROM For the Purpose of:: To decrease pain, To increase ROM, To improve muscle performance and motor function, To improve ability to perform ADL's, To increase tolerance to activity/condition/position, To improve ability of physical actions for home/community/work/leisure, To improve health of tissue, To decrease soft tissue restriction, To increase flexibility/ROM, To improve health and function Manual Therapy Techniques to Include: Soft tissue mobilization For the Purpose of:: To decrease pain, To increase ROM, To improve nutrient delivery to tissue, To increase oxygenation perfusion, To improve health of tissue, To decrease soft tissue restriction TENS: Yes IF ES: Yes Cryotherapy (ice pack, ice massage): Yes Thermo therapy (hot pack): Yes Ultrasound (thermal/non thermal): Yes For the Purpose of:: To decrease pain, To increase ROM, To improve nutrient delivery to tissue, To increase oxygenation perfusion, To improve health of tissue, To increase flexibility/ROM Thank you for the opportunity to evaluate your patient. For Medicare and Medicare HMO plans, please review the plan of care and approve it. It will need to be FAXED BACK to us at [phone] for Medicare purposes. For Medicare only, by signing this I certify the plan of care. Please let me know if there are questions or concerns regarding this plan of care. Physician Signature: Date:
--- NOTE | 2021-04-19 07:19 | HP.PTDCNRP_ITS ---
ALIZA PAYAN was seen in my office for initial evaluation on 12/17/20. The following Plan of Care was established for this patient: Initial Frequency: 2x /Week Initial Duration: 4 Weeks Patient/Client Instruction: Educate patient on: Condition, Plan of Care For the Purpose of:: To decrease pain, To increase ROM, To improve muscle performance and motor function, To improve ability to perform ADL's, To increase tolerance to activity/condition/position, To improve performance and independence with ADL's, To improve ability of physical actions for home/community/work/leisure, To improve health of tissue, To decrease soft tissue restriction, To increase flexibility/ROM, To reduce risk of recurrence Therapeutic Exercise to Include: Strength training, Endurance training, Balance training, Postural training, Flexibilty training, Active ROM For the Purpose of:: To decrease pain, To increase ROM, To improve muscle performance and motor function, To improve ability to perform ADL's, To increase tolerance to activity/condition/position, To improve ability of physical actions for home/community/work/leisure, To improve health of tissue, To decrease soft tissue restriction, To increase flexibility/ROM, To improve health and function Manual Therapy Techniques to Include: Soft tissue mobilization For the Purpose of:: To decrease pain, To increase ROM, To improve nutrient [place] to tissue, To increase oxygenation perfusion, To improve health of tissue, To decrease soft tissue restriction TENS: Yes IF ES: Yes Cryotherapy (ice pack, ice massage): Yes Thermo therapy (hot pack): Yes Ultrasound (thermal/non thermal): Yes For the Purpose of:: To decrease pain, To increase ROM, To improve nutrient delivery to tissue, To increase oxygenation perfusion, To improve health of tissue, To increase flexibility/ROM This patient was last seen in our office . Pertinent comments regarding their Physical therapy will appear below: This patient has right hip pain with tx focusing on ROM, strengthening thus d/c At this point I will be discontinuing this patient from physical therapy. I would be happy to see this patient again in the future if found appropriate by the physician. Thank you! Inderjit Astorga, PT, Cert MDT, OCS Balance/Gait/Functional tests - Balance/Special Test Scores Lower Extremity Functional Score: 58
== END 2021-01-03 19:00 | disposition home or self-care (01) ==
LOC: PT 09:30
PROVIDERS: PCP Internal Medicine; Visit Provider Internal Medicine
DX: M25.551 Pain in right hip (principal); M76.31 Iliotibial band syndrome, right leg
CPT/HCPCS: 97110; 97162

== ENCOUNTER 2021-04-02 10:14 | Outpatient (CLI) | payer MEDICARE, SELFPAY ==
[2021-04-02 12:39] LABS: Absolute Lymphocyte Count 2.88 X10^3/uL (0.83-4.51); Absolute Neutrophil Count 5.3 X10^3/uL (2.0-7.7); Basophil# 0.08 X10^3/uL; Basophil% 0.9 % (0-1); Eosinophil# 0.36 X10^3/uL; Eosinophils% 3.9 % (0-5); Hematocrit 37.2 % (37-47); Hemoglobin 11.9 g/dL (12.0-15.0); Lymphocyte # 2.88 X10^3/ul (0.83-4.51); Mean Corpuscular Hgb 27.9 pg (27.0-32.0); Mean Corpuscular Volume 87.3 fL (81-99); Mean Platelet Vol. 10.4 fl (6.2-12.0); Monocyte# 0.66 X10^3/uL; Monocyte% 7.1 % (0-10); NRBC Flagged by Analyzer 0 % (0-5); Neutrophil # 5.28 X10^3/uL (2.7-7.7); Neutrophil % 56.7 % (47-70); Platelet Count 372 K/mm3 (150-450); RBC Distribution Width CV 13.4 % (11.6-14.6); RBC Distribution Width SD 42.8 fl (35.1-43.9); Red Blood Count 4.26 M/mm3 (4.2-5.4); White Blood Count 9.3 K/mm3 (4.4-11.0)
[2021-04-02 12:57] LABS: AST(SGOT) 23 U/L (15-37); Alanine Aminotransfer ALT/SGPT 39 U/L (13-56); Albumin, Serum 3.7 g/dL (3.2-5.0); Alkaline Phosphatase 63 U/L (45-117); Anion Gap 10 (5-15); BUN 19 mg/dL (7-18); Calcium,Total 10.2 mg/dL (8.5-10.1); Chloride 101 mmol/L (98-107); Creatinine, Serum 0.83 mg/dL (0.55-1.02); EST Glomerular Filtration Rate 71 mL/min (>60); Est Glom Filt Rate - Afr Amer 86 mL/min (>60); Globulin 3.8 g/dL (2.2-4.2); Glucose 143 mg/dL (74-106); Potassium 4.3 mmol/L (3.5-5.1); Protein, Total 7.5 g/dL (6.4-8.2); Sodium Level 139 mmol/L (136-145)
[2021-04-02 13:21] LABS: Microalbumin,Random Urine 39.7 mg/L (NO RANGE EST.); Microalbumin:Creatinine Ratio 29.4 mg/g CRE (<30 mg/g CRE)
== END 2021-04-02 23:59 | disposition short-term general hospital (02) ==
LOC: BIMLAB 10:15
PROVIDERS: PCP Internal Medicine; Visit Provider Internal Medicine
DX: E11.9 Type 2 diabetes mellitus without complications (principal)
CPT/HCPCS: 36415; 80053; 82043; 82570; 85025

== ENCOUNTER 2021-04-03 13:18 | Outpatient (CLI) | payer MEDICARE, SELFPAY | END 2021-04-03 23:59 | disposition short-term general hospital (02) | LOC: LABSPEC 13:19 | PROVIDERS: PCP Internal Medicine; Visit Provider Physician Assistant | DX: Z11.52 Encounter for screening for COVID-19 (principal) | CPT/HCPCS: 87635; U0003; U0005 ==

== ENCOUNTER → 2021-11-27 | Outpatient (CLI) | payer MEDICARE, SELFPAY ==
[2021-11-27 16:44] LABS: Absolute Lymphocyte Count 3.02 X10^3/uL (0.83-4.51); Absolute Neutrophil Count 6.7 X10^3/uL (2.0-7.7); Basophil# 0.08 X10^3/uL; Basophil% 0.7 % (0-1); Eosinophil# 0.36 X10^3/uL; Eosinophils% 3.3 % (0-5); Hematocrit 39.3 % (37-47); Hemoglobin 12.5 g/dL (12.0-15.0); Lymphocyte # 3.02 X10^3/ul (0.83-4.51); Lymphocyte % 27.6 % (19-41); Mean Corp Hgb Conc 31.8 g/dL (32-36); Mean Corpuscular Hgb 28.2 pg (27.0-32.0); Mean Corpuscular Volume 88.7 fL (81-99); Mean Platelet Vol. 10.4 fl (6.2-12.0); Monocyte# 0.77 X10^3/uL; NRBC Flagged by Analyzer 0 % (0-5); Neutrophil # 6.65 X10^3/uL (2.7-7.7); Neutrophil % 60.9 % (47-70); Platelet Count 408 K/mm3 (150-450); RBC Distribution Width CV 14.3 % (11.6-14.6); Red Blood Count 4.43 M/mm3 (4.2-5.4); White Blood Count 10.9 K/mm3 (4.4-11.0)
[2021-11-27 17:04] LABS: AST(SGOT) 15 U/L (15-37); Alanine Aminotransfer ALT/SGPT 26 U/L (13-56); Albumin, Serum 3.6 g/dL (3.2-5.0); Alkaline Phosphatase 71 U/L (45-117); Anion Gap 6 (5-15); BUN 24 mg/dL (7-18); BUN/Creat Ratio 24.4 RATIO (10-20); Calcium,Total 9.9 mg/dL (8.5-10.1); Chloride 102 mmol/L (98-107); Cholesterol 203 mg/dL (200); Creatinine, Serum 0.98 mg/dL (0.55-1.02); EST Glomerular Filtration Rate 58 mL/min (>60); Est Glom Filt Rate - Afr Amer 70 mL/min (>60); Globulin 3.7 g/dL (2.2-4.2); Glucose 153 mg/dL (74-106); High Density Lipoprotein 45 mg/dL; Potassium 4.7 mmol/L (3.5-5.1); Protein, Total 7.3 g/dL (6.4-8.2); Sodium Level 139 mmol/L (136-145); Triglycerides 301 mg/dL; Very Low Density Lipoprotein 60 mg/dL (5-40)
== END | disposition home or self-care (01) ==
LOC: BIMLAB 15:16
PROVIDERS: PCP Internal Medicine; Referring Provider Internal Medicine; Visit Provider Internal Medicine
DX: E11.9 Type 2 diabetes mellitus without complications (principal); I10 Essential (primary) hypertension
CPT/HCPCS: 36415; 80053; 80061; 85025

== ENCOUNTER → 2022-03-03 | Outpatient (CLI) | payer MEDICARE, SELFPAY ==
[2022-03-03 13:04] LABS: Anion Gap 7 (5-15); BUN 16 mg/dL (7-18); BUN/Creat Ratio 20.9 RATIO (10-20); Calcium,Total 10.3 mg/dL (8.5-10.1); Chloride 104 mmol/L (98-107); Creatinine, Serum 0.76 mg/dL (0.55-1.02); EST Glomerular Filtration Rate 78 mL/min (>60); Est Glom Filt Rate - Afr Amer 94 mL/min (>60); Glucose 119 mg/dL (74-106); Potassium 4.3 mmol/L (3.5-5.1); Sodium Level 140 mmol/L (136-145)
== END | disposition home or self-care (01) ==
LOC: BIMLAB 11:04
PROVIDERS: PCP Internal Medicine; Referring Provider Internal Medicine; Visit Provider Internal Medicine
DX: I10 Essential (primary) hypertension (principal)
CPT/HCPCS: 36415; 80048

== ENCOUNTER → 2022-03-10 | Outpatient (CLI) | payer MEDICARE, SELFPAY ==
--- NOTE | 2022-03-10 08:49 | US_ITS ---
STUDY: ABDOMINAL ULTRASOUND - RIGHT UPPER QUADRANT REASON FOR VISIT: Female, 76 years old RUQ Pain TECHNIQUE: Ultrasound evaluation of the right upper quadrant was performed with real-time and static lui-scale imaging. TECHNICAL QUALITY: Adequate. COMPARISON: None. FINDINGS: Liver: The liver measures 14.1 cm. There is increased echogenicity consistent with fatty infiltration. The bile ducts are within normal limits. There is hepatic color flow. The direction of portal flow is hepatopetal. There is no demonstrated mass lesion. Gallbladder: Normal distended gallbladder. The gallbladder wall measures 1.6 mm. There is a negative sonographic Ramos''s sign. There is no pericholecystic fluid. There are no gallstones. I suspect a 3 mm x 3 mm x 1 1 mm polyp adherent to the gallbladder wall. Common Bile Duct (C.B.D.): The common bile duct measures 6.2 mm. Pancreas: Normal size of the head, body and tail of the pancreas. There is increased echogenicity of the pancreas. There is no demonstrated pancreatic mass or cyst. Right Kidney: Normal size of the right kidney. The right kidney measures 10.2 cm x 5.7 cm x 4.5 cm. Normal renal cortex. The right cortex measures 1.3 cm. There is no demonstrated renal mass or cyst. There is no right hydronephrosis. US/Gallbladder IMPRESSION: Fatty infiltration of the liver. 3 mm x 3 mm x 1 mm gallbladder polyp. Electronically Signed: Aris Ventura MD at 15:26 EST ,
== END | disposition home or self-care (01) ==
LOC: US 08:48
PROVIDERS: PCP Internal Medicine; Referring Provider Internal Medicine; Visit Provider Internal Medicine
DX: R10.11 Right upper quadrant pain (principal)
CPT/HCPCS: 76705

== ENCOUNTER → 2022-06-13 | Outpatient (CLI) | payer MEDICARE, SELFPAY ==
--- NOTE | 2022-06-13 10:28 | RAD_ITS ---
STUDY: X-RAY - LEFT SHOULDER REASON FOR EXAM: Female, 76 years old. Left shoulder pain. TECHNIQUE: 4 view(s) of the shoulder. COMPARISON: None. FINDINGS: Osteopenia. Mild arthrosis of the glenohumeral joint. Mild arthrosis of the AC joint. Normal acromion. Normal humeral head and visualized proximal humerus. Calcific tendinosis. Normal visualized pulmonary apex. 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 Calcific tendinosis. Electronically Signed: Clifford Ellington, at 10:50 EDT ,
== END | disposition home or self-care (01) ==
LOC: MTLAB 10:28 → MTRAD 10:32
PROVIDERS: PCP Internal Medicine; Referring Provider Internal Medicine; Visit Provider Internal Medicine
DX: M25.512 Pain in left shoulder (principal)
CPT/HCPCS: 73030

== ENCOUNTER → 2022-06-19 | Outpatient (CLI) | payer MEDICARE, SELFPAY | END | disposition home or self-care (01) | LOC: PSN 13:54 | PROVIDERS: PCP Internal Medicine; Visit Provider Internal Medicine | DX: I10 Essential (primary) hypertension (principal) | CPT/HCPCS: 93005 ==

== ENCOUNTER → 2022-09-01 | Outpatient (CLI) | payer MEDICARE, SELFPAY ==
[2022-09-01 12:05] LABS: Absolute Lymphocyte Count 2.61 X10^3/uL (0.83-4.51); Absolute Neutrophil Count 4.6 X10^3/uL (2.0-7.7); Basophil# 0.08 X10^3/uL; Eosinophil# 0.39 X10^3/uL; Eosinophils% 4.7 % (0-5); Hemoglobin 12.8 g/dL (12.0-15.0); Lymphocyte # 2.61 X10^3/ul (0.83-4.51); Lymphocyte % 31.1 % (19-41); Mean Corpuscular Hgb 28.6 pg (27.0-32.0); Mean Corpuscular Volume 89.5 fL (81-99); Mean Platelet Vol. 10.2 fl (6.2-12.0); Monocyte# 0.66 X10^3/uL; Monocyte% 7.9 % (0-10); NRBC Flagged by Analyzer 0 % (0-5); Neutrophil # 4.61 X10^3/uL (2.7-7.7); Neutrophil % 54.9 % (47-70); Platelet Count 412 K/mm3 (150-450); RBC Distribution Width CV 13.6 % (11.6-14.6); RBC Distribution Width SD 44.5 fl (35.1-43.9); Red Blood Count 4.47 M/mm3 (4.2-5.4); White Blood Count 8.4 K/mm3 (4.4-11.0)
[2022-09-01 12:42] LABS: ALB/GLOB Ratio 1.2 RATIO (0.9-2.4); AST(SGOT) 12 U/L (15-37); Alanine Aminotransfer ALT/SGPT 21 U/L (13-56); Albumin, Serum 3.9 g/dL (3.2-5.0); Alkaline Phosphatase 61 U/L (45-117); Anion Gap 6 (5-15); BUN 16 mg/dL (7-18); BUN/Creat Ratio 21.9 RATIO (10-20); Chloride 103 mmol/L (98-107); Cholesterol 183 mg/dL (200); Creatinine, Serum 0.73 mg/dL (0.55-1.02); EST Glomerular Filtration Rate 82 mL/min (>60); Est Glom Filt Rate - Afr Amer 99 mL/min (>60); Globulin 3.2 g/dL (2.2-4.2); Glucose 130 mg/dL (74-106); High Density Lipoprotein 51 mg/dL; Potassium 4.4 mmol/L (3.5-5.1); Protein, Total 7.1 g/dL (6.4-8.2); Sodium Level 140 mmol/L (136-145); Triglycerides 197 mg/dL; Very Low Density Lipoprotein 39 mg/dL (5-40)
[2022-09-01 12:51] LABS: Microalbumin,Random Urine 9.5 mg/L (NO RANGE EST.); Microalbumin:Creatinine Ratio 15.7 mg/g CRE (<30 mg/g CRE)
== END | disposition home or self-care (01) ==
LOC: BIMLAB 09:38
PROVIDERS: PCP Internal Medicine; Visit Provider Internal Medicine
DX: E11.69 Type 2 diabetes mellitus with other specified complication (principal)
CPT/HCPCS: 36415; 80053; 80061; 82043; 82570; 83036; 85025

== ENCOUNTER 2022-10-03 21:33 | Emergency (ER) | payer MEDICARE, SELFPAY ==
[2022-10-03 21:33] VITALS: BP 153/75; PULSE 105; RESP 18; TEMP 36.6; O2SAT 97; BMI 28.0
--- NOTE | 2022-10-03 21:41 | EKG12_ITS ---
Test Reason : Blood Pressure : / mmHG Vent. Rate : 075 BPM Atrial Rate : 075 BPM P-R Int : 176 ms QRS Dur : 082 ms QT Int : 364 ms P-R-T Axes : 087 049 037 degrees QTc Int : 406 ms Normal sinus rhythm Normal ECG Confirmed by RICK NORIEGA, LUISITO ([id number]), book or script editor CHAU OJEDA ([id number]) on 10/06/2022 1:17:47 PM Referred By: Confirmed By:SHARDA CABRERA MD
[2022-10-03] MEDS: DiphenhydrAMINE 25 MG Capsule 50 MG PO (21:46)
--- NOTE | 2022-10-03 22:22 | EDS_ITS ---
HPI History of Present Illness Chief Complaint: Allergic Reaction Informant: patient Onset/Context/Timing Onset: Today Narrative Narrative: Patient presents secondary to allergic reaction. She states she was on her back porch when she was stung by a bee just above her right eyebrow. She went into her home to look in the mirror. As she was exiting her bathroom she states she got lightheaded and everything went light in color. She fell to the ground. She is unsure if she lost consciousness. She states that her legs felt weak and she was unable to get up so she had to crawl to a chair. She then called a friend to come bring her to the emergency room. [facility] Medical History (Updated 10/03/22 @ 23:[address] Blessing Koehler MD) Abdominal pain Benign neoplasm of colon Calcific tendinitis of left shoulder Dermatitis Diverticulitis Flu vaccine need Generalized anxiety disorder GERD (gastroesophageal reflux disease) Health care maintenance Hyperlipidemia Hypertension Hypothyroidism Iliotibial band syndrome, right leg Internal hemorrhoids without mention of complication Left shoulder pain Obesity (BMI 30.0-34.9) Obstructive sleep apnea Osteoarthritis Coee-[id number]-15 condition Postmenopausal Right hip pain RUQ pain Sacroiliitis Seasonal allergies Type 2 diabetes mellitus without complications Home Medications aspirin 81 mg tablet,delayed release 81 mg PO DAILY 10/25/18 [History Last Taken Unknown] cetirizine 10 mg tablet 10 mg PO DAILY PRN allergy symptoms #30 tabs 07/17/20 [Rx Last Taken Unknown] triamcinolone acetonide 0.1 % topical cream 1 applic topical BID PRN rash #80 grams 12/04/20 [Rx Last Taken Unknown] losartan 50 mg-hydrochlorothiazide 12.5 mg tablet 1 tab PO QDAY #90 tabs 09/04/21 [Rx Last Taken Unknown] flash glucose scanning reader (FreeStyle Griselda 2 [place]) #1 ea 11/27/21 [Rx Last Taken Unknown] flash glucose sensor (FreeStyle Griselda 2 Sensor kit) #1 ea 11/27/21 [Rx Last Taken Unknown] metformin 500 mg tablet 1,000 mg (2 x 500 mg) PO BID 3 months #360 tabs 04/14/22 [Rx Last Taken Unknown] levothyroxine 75 mcg tablet (Synthroid) See Rx Instructions .Route .COMPLEX #90 tabs 06/02/22 [Rx Last Taken Unknown] amlodipine 5 mg tablet 5 mg PO DAILY #90 tabs 06/09/22 [Rx Last Taken Unknown] atorvastatin 40 mg tablet See Rx Instructions .Route .COMPLEX #90 tabs 06/09/22 [Rx Last Taken Unknown] fluoxetine 10 mg capsule 10 mg PO QDAY #90 caps 06/09/22 [Rx Last Taken Unknown] ertugliflozin 15 mg tablet (Steglatro) See Rx Instructions .Route .COMPLEX #90 tabs 09/08/22 [Rx Last Taken Unknown] omeprazole 40 mg capsule,delayed release 40 mg PO DAILY #90 caps 09/08/22 [Rx Last Taken Unknown] prednisone 10 mg tablet 10 mg PO QDAY 12 days #30 tabs 09/29/22 [Rx Last Taken Unknown] Allergy/AdvReac Type Severity Reaction Status Date / Time Penicillins Allergy rash Verified 10/03/22 21:33 ciprofloxacin AdvReac vomiting Verified 10/03/22 21:33 Family History Mother Diabetes CAD (coronary artery disease) Sister Diabetes Kidney disease Brother Diabetes CAD (coronary artery disease) Kidney disease Surgical History H/O excision of ganglion cyst History of left heart catheterization (06/24/10) History of tonsillectomy Social History Smoking Status: Never smoker alcohol intake: current alcohol intake frequency: holidays/special occasions only substance use type: does not use what type of physical activity do you participate in: walking frequency: 3-4 times per week ROS ROS ED Constitutional Constitutional ED: Denies chills or fever(s) Eyes Eyes: Denies change in vision or discharge from eye(s) ENT ENT ED: Denies discharge from eye(s), rhinorrhea or sore throat Cardiovascular Cardiovascular: Denies chest pain or palpitations Respiratory/Chest Respiratory/Chest: Denies cough or dyspnea Gastrointestinal Gastrointestinal: Denies abdominal pain, nausea or vomiting Genitourinary Genitourinary ED: Denies dysuria Musculoskeletal Musculoskeletal: Denies back pain or extremity pain Integumentary Reports other Details: Focal reaction to sting ; Denies Abrasions or rash Neurologic Neurologic: Reports weakness; Denies headache(s) Psychiatric Psychiatric: Denies anxiety or depression Allergic/Immunologic Allergic/Immunologic ED: Denies lip swelling or urticaria EXAM Physical Exam Const Vital Signs: 10/03/22 21:33 10/03/22 21:40 10/03/22 22:47 Temperature 97.8 F Temperature Source Temporal Pulse Rate 105 H 84 Respiratory Rate 18 18 Respiratory Effort Normal Non-Labored Respiratory Pattern Normal Blood Pressure 153/75 H 116/56 L Blood Pressure Mean 101 76 Pulse Ox 97 97 Oxygen Delivery Method Room Air Positive well nourished and well developed General Appearance ED: well developed HEENT HEENT Narrative: Mild erythema along the right eyebrow with very minimal edema. I do not appreciate a stinger still in place. Extraocular movements are fully intact. Patient states with a strong voice and is tolerating secretions well. Eyes PERRL and EOMs intact bilaterally Neck no lymphadenopathy Chest Wall inspection of chest normal and palpation of chest normal Resp normal respiratory effort and clear to auscultation bilaterally Cardio regular rate and regular rhythm GI non-tender Palpation: soft Extremity normal to inspection Neuro oriented x3 and no sensory deficits noted Motor Exam: strength 5/5 throughout Psych mental status grossly normal Skin Skin Narrative: Focal reaction to sting as noted above. MDM MDM MDM Narrative Medical decision making narrative: Given the patient's fall and leg weakness, she was placed on monitor and storage bin tender. EKG obtained to evaluate for arrhythmia. Patient is given p.o. Benadryl. She states that she is already on prednisone at 30 mg a day secondary to recent poison radha EKG Initial EKG: Attestation: I personally reviewed and interpreted this EKG as follows: Interpretation: Sinus Rhythm (Sinus at 75 with no acute ischemia.) Treatment and Re-Evaluation :: On repeat evaluation patient is feeling well. Her EKG is sinus at 75 with no acute ischemia. I did review her monitor and storage bin tender from her stay. She had a few PVCs but no arrhythmias noted. At no time did patient feel throat tightness or have difficulty breathing. She is still on steroid taper for the next several days. She will be discharged home with friend at this time. Return instructions are given. Discharge Plan Triage Chief Complaint: Allergic Reaction ED Provider: Blessing Koehler Dx/Rx/DC Orders Clinical Impression: Near syncope, Allergic reaction Instructions: ED BEE STING General Allergic Rxn, ED Near-Fainting, Uncertain Cause Prescriptions: No Action aspirin 81 mg tablet,delayed release (DR/EC) 81 mg PO DAILY cetirizine 10 mg tablet 10 mg PO DAILY PRN (Reason: allergy symptoms) Qty: 30 0RF triamcinolone acetonide 0.1 % cream 1 applic TOPICAL BID PRN (Reason: rash) Qty: 80 3RF (DME) FreeStyle Griselda 2 [place] Misc See Rx Instructions .Route Qty: 1 3RF Rx Instructions: As directed (DME) FreeStyle Griselda 2 Sensor Kit See Rx Instructions .Route Qty: 1 3RF Rx Instructions: As directed fluoxetine 10 mg capsule 10 mg PO QDAY Qty: 90 3RF amlodipine 5 mg tablet 5 mg PO DAILY Qty: 90 3RF atorvastatin 40 mg tablet See Rx Instructions .ROUTE .COMPLEX Qty: 90 3RF Dose Instruction: TAKE 1 TABLET DAILY Rx Instructions: TAKE 1 TABLET DAILY Steglatro 15 mg tablet See Rx Instructions .ROUTE .COMPLEX Qty: 90 0RF Dose Instruction: take 1 tablet by mouth every morning Rx Instructions: take 1 tablet by mouth every morning omeprazole 40 mg capsule,delayed release(DR/EC) 40 mg PO DAILY Qty: 90 3RF prednisone 10 mg tablet 10 mg PO QDAY 12 Days Qty: 30 0RF Rx Instructions: Take 4 tabs once daily days 1-3 3 tabs once daily days 4-6 2 tabs once daily days 7-9 and 1 tab once daily days 10-12. losartan-hydrochlorothiazide 50-12.5 mg tablet 1 tab PO QDAY Qty: 90 3RF metformin 500 mg tablet 1,000 mg PO BID 90 Days Qty: 360 3RF levothyroxine [Synthroid] 75 mcg tablet See Rx Instructions .ROUTE .COMPLEX Qty: 90 3RF Dose Instruction: TAKE 1 TABLET DAILY Rx Instructions: TAKE 1 TABLET DAILY Primary Care Provider: Bubba Zhu Referrals: Bubba Zhu MD [Primary Care Provider] - 3-5 Days if not improving Disposition Disposition: Home, Self Care
[2022-10-03 22:47] VITALS: BP 116/56; PULSE 84; RESP 18; O2SAT 97
[2022-10-03 23:14] VITALS: BP 124/51; PULSE 73; RESP 13; O2SAT 96
== END 2022-10-03 23:18 | disposition home or self-care (01) ==
PROVIDERS: Emergency Provider Emergency Medicine; PCP Internal Medicine; Visit Provider Emergency Medicine
DX: T63.444A Toxic effect of venom of bees, undetermined, initial encounter (principal); R55 Syncope and collapse
CPT/HCPCS: 93005; 99284

== ENCOUNTER → 2023-01-05 | Outpatient (CLI) | payer MEDICARE, SELFPAY ==
[2023-01-05 13:25] LABS: Thyroid Stim Hormone (TSH) 3.34 uIU/mL (0.358-3.74)
[2023-01-05 13:59] LABS: Hemoglobin A1c 7.2 % (3.8-5.6)
== END | disposition home or self-care (01) ==
LOC: BIMLAB 10:08
PROVIDERS: PCP Internal Medicine; Referring Provider Internal Medicine; Visit Provider Internal Medicine
DX: E11.69 Type 2 diabetes mellitus with other specified complication (principal); E03.9 Hypothyroidism, unspecified
CPT/HCPCS: 36415; 83036; 84443

== ENCOUNTER → 2023-05-13 | Outpatient (CLI) | payer MEDICARE, SELFPAY ==
--- OUTSIDE RECORDS SUMMARY | 2023-05-13 11:52 | XMS RPT_ITS | CCD ---
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 Name Role Phone SABIHA HACKETT Unavailable Unavailable Allergies Allergy Classification Reported Allergen(s) Allergy Type Date of Onset Reaction(s) Facility (1 source) benazepril; Translations: [BENAZEPRIL] Drug Allergy 7 [facility] Repository (1 source) ciprofloxacin; Translations: [CIPROFLOXACIN] Drug Allergy 0 [facility] Repository (1 source) Penicillins; Translations: [PENICILLINS] Propensity to adverse reactions to drug (disorder) 7 [facility] Repository Problems Problem Classification Problem Date Documented Da te Episodic/Chronic Unclassified (1 source) Obstructive sleep apnea (adult) (pediatric); Translations: [Obstructive sleep apnea (adult) (pediatric)] Onset: 03-04-2017 Chronic Encounters Encounter Date Encounter Type Care Provider Facility Start: 03-04-2017 End: 03-18-2017 Ambulatory [facility] Summary Purpose Family History No Family History Records Found Advance Directives No Advanced Directives Records Found Additional Source Comments INFORMATION SOURCE (unrecogn ized section and content) FOR RECORDS PERTAINING TO PATIENTS WHO ARE OR HAVE BEEN ENROLLED IN A CHEMICAL DEPENDENCY/SUBSTANCEABUSE PROGRAM, SOME INFORMATION MAY BE OMITTED. This clinical summary was aggregated from multiple sources. Caution should be exercised in using it in the provision of clinical care. This summary normalizes information from multiple sources, and as a consequence, information in this document may materially change the coding, format and clinical context of patient data. In addition, data may be omitted in some cases. CLINICAL DECISIONS SHOULD BE BASED ON THE PRIMARY CLINICAL RECORDS. [facility]. provides no warranty or guarantee of the accuracy or completeness of information in this document.
[2023-05-13 12:48] LABS: Anion Gap 7 (5-15); BUN 22 mg/dL (7-18); BUN/Creat Ratio 25.6 RATIO (10-20); Calcium,Total 9.6 mg/dL (8.5-10.1); Chloride 101 mmol/L (98-107); Creatinine, Serum 0.86 mg/dL (0.55-1.02); EST Glomerular Filtration Rate 68 mL/min (>60); Est Glom Filt Rate - Afr Amer 82 mL/min (>60); Glucose 142 mg/dL (74-106); Potassium 4.1 mmol/L (3.5-5.1); Sodium Level 138 mmol/L (136-145)
== END | disposition home or self-care (01) ==
LOC: BIMLAB 11:11
PROVIDERS: PCP Internal Medicine; Visit Provider Internal Medicine
DX: E11.9 Type 2 diabetes mellitus without complications (principal)
CPT/HCPCS: 36415; 80048

== ENCOUNTER → 2023-08-10 | Outpatient (CLI) | payer MEDICARE, SELFPAY ==
[2023-08-10 12:11] LABS: Absolute Lymphocyte Count 1.83 X10^3/uL (0.83-4.51); Absolute Neutrophil Count 4.7 X10^3/uL (2.0-7.7); Basophil# 0.05 X10^3/uL; Basophil% 0.7 % (0-1); Eosinophil# 0.27 X10^3/uL; Eosinophils% 3.7 % (0-5); Hematocrit 38.4 % (37-47); Hemoglobin 12.3 g/dL (12.0-15.0); Lymphocyte # 1.83 X10^3/ul (0.83-4.51); Mean Corpuscular Volume 87.3 fL (81-99); Mean Platelet Vol. 10.2 fl (6.2-12.0); Monocyte# 0.45 X10^3/uL; Monocyte% 6.1 % (0-10); NRBC Flagged by Analyzer 0 % (0-5); Neutrophil # 4.69 X10^3/uL (2.7-7.7); Neutrophil % 64.1 % (47-70); Platelet Count 316 K/mm3 (150-450); RBC Distribution Width SD 44.8 fl (35.1-43.9); White Blood Count 7.3 K/mm3 (4.4-11.0)
[2023-08-10 12:52] LABS: ALB/GLOB Ratio 1.1 RATIO (0.9-2.4); AST(SGOT) 14 U/L (15-37); Alanine Aminotransfer ALT/SGPT 21 U/L (13-56); Albumin, Serum 3.7 g/dL (3.2-5.0); Alkaline Phosphatase 80 U/L (45-117); Anion Gap 5 (5-15); BUN 20 mg/dL (7-18); BUN/Creat Ratio 23.8 RATIO (10-20); Calcium,Total 9.8 mg/dL (8.5-10.1); Chloride 104 mmol/L (98-107); Cholesterol 202 mg/dL (200); Creatinine, Serum 0.84 mg/dL (0.55-1.02); EST Glomerular Filtration Rate 69 mL/min (>60); Est Glom Filt Rate - Afr Amer 84 mL/min (>60); Globulin 3.5 g/dL (2.2-4.2); Glucose 139 mg/dL (74-106); High Density Lipoprotein 56 mg/dL; Potassium 3.9 mmol/L (3.5-5.1); Protein, Total 7.2 g/dL (6.4-8.2); Sodium Level 139 mmol/L (136-145); Triglycerides 199 mg/dL; Very Low Density Lipoprotein 40 mg/dL (5-40)
== END | disposition home or self-care (01) ==
PROVIDERS: PCP Internal Medicine; Visit Provider Internal Medicine
DX: I10 Essential (primary) hypertension (principal); E11.9 Type 2 diabetes mellitus without complications; E03.9 Hypothyroidism, unspecified
CPT/HCPCS: 36415; 80053; 80061; 85025

== ENCOUNTER → 2023-08-13 | Outpatient (CLI) | payer MEDICARE, SELFPAY ==
[2023-08-13 12:36] LABS: Microalbumin,Random Urine 25.1 mg/L (NO RANGE EST.); Microalbumin:Creatinine Ratio 17.6 mg/g CRE (<30 mg/g CRE)
== END | disposition home or self-care (01) ==
PROVIDERS: PCP Internal Medicine; Visit Provider Internal Medicine
DX: E11.9 Type 2 diabetes mellitus without complications (principal)
CPT/HCPCS: 82043; 82570

== ENCOUNTER → 2023-09-04 | Outpatient (CLI) | payer MEDICARE, SELFPAY ==
--- NOTE | 2023-09-04 08:02 | BI_ITS ---
MAMMOGRAPHY - BILATERAL SCREENING REASON FOR EXAM: Female, 78 years old. Routine annual screening examination. PERTINENT HISTORY: Non-contributory. TECHNIQUE: Digital bilateral breast tam (3D mammographic acquisition) in the CC and MLO projections. 2-D mediolateral oblique (MLO) and craniocaudad (CC) views of both breasts were obtained. CAD: Full Field Digital Mammography with Computer Added Detection was performed. COMPARISON: Comparison is made with prior study January 13, 2018. FINDINGS: Breast Composition: The breasts are almost entirely fatty. There are no dominant masses or suspicious calcifications. No other significant abnormalities are identified. There has been no significant change since the prior study. BI/SCRN MAMM (CAD)W/TAM BILAT IMPRESSION: Stable bilateral screening mammogram. Yearly follow-up mammogram recommended. (A) ASSESSMENT CATEGORY: BIRADS Category 1: Negative. A letter regarding these results will be sent to the patient by the facility within 30 days. Approximately 10% of breast cancers are not detected by mammography. A normal mammogram should not delay biopsy of a clinically suspicious abnormality. [id number] Electronically Signed: Aris Ventura MD at 8:44 EDT ,
== END | disposition home or self-care (01) ==
PROVIDERS: PCP Internal Medicine; Referring Provider Internal Medicine; Visit Provider Internal Medicine
DX: Z12.31 Encounter for screening mammogram for malignant neoplasm of breast (principal)
CPT/HCPCS: 77063; 77067

== ENCOUNTER → 2023-12-02 | Outpatient (CLI) | payer MEDICARE, SELFPAY ==
[2023-12-02 12:54] LABS: Anion Gap 5 (5-15); BUN 20 mg/dL (7-18); BUN/Creat Ratio 24.9 RATIO (10-20); Calcium,Total 9.5 mg/dL (8.5-10.1); Chloride 103 mmol/L (98-107); EST Glomerular Filtration Rate 73 mL/min (>60); Est Glom Filt Rate - Afr Amer 88 mL/min (>60); Glucose 143 mg/dL (74-106); Potassium 4.1 mmol/L (3.5-5.1); Sodium Level 138 mmol/L (136-145)
[2023-12-02 12:56] LABS: Vitamin B12 247 pg/mL (211-911); Vitamin D,25 Hydroxy 29.9 ng/mL
== END | disposition home or self-care (01) ==
LOC: BIMLAB 09:08
PROVIDERS: PCP Internal Medicine; Visit Provider Internal Medicine
DX: E03.9 Hypothyroidism, unspecified (principal); M85.80 Other specified disorders of bone density and structure, unspecified site; I10 Essential (primary) hypertension
CPT/HCPCS: 36415; 80048; 82306; 82607; 84443

== ENCOUNTER → 2023-12-30 | Outpatient (CLI) | payer MEDICARE, SELFPAY ==
--- NOTE | 2023-12-30 09:20 | BD_ITS ---
STUDY: DUAL ENERGY X-RAY ABSORPTIOMETRY / DXA REASON FOR EXAM: Female, 78 years old. Post - Menopausal TECHNIQUE: Bone Mineral Density (BMD) measurements of lumbar spine and bilateral hips were obtained. COMPARISON: Comparison is made with prior study dated September 20, 2020. FINDINGS: Lumbar Spine (L1-L4): g/cm2 (1.017) / T-score (-0.3) / Z-score (2.4) Findings are suggestive of normal bone density with a low fracture risk. Left Femur Total: g/cm2 (0.915) / T-score (-0.2) / Z-score (1.9) Left Femoral Neck: g/cm2 (0.647) / T-score (-1.8) / Z-score (0.5) Right Femur Total: g/cm2 (0.830) / T-score (-0.9) / Z-score (1.2) Right Femoral Neck: g/cm2 (0.621) / T-score (-2.1) / Z-score (0.3) The T-Scores on the most recent prior examination were: Lumbar Spine (L1-L4): There has been worsening of bone density since the previous examination. Left Femur Total: which represents a worsening of 0.3%. Right Femur Total: which represents a worsening of 0.8%. BD/Dexa Bone Density Study IMPRESSION: The patient is considered osteopenic as outlined below according to World Ko Organization (WHO) criteria with a high fracture risk. There has been worsening of bone density since the previous examination. Reference Information: The T-score is the number of standard deviations above or below the standard which is normal for young adults at their peak bone mineral density. The World Health Organization (WHO) interprets the T-scores as follows: Above -1 Normal bone density Between -1 and -2.5 Osteopenia Equal to / or below -2.5 Osteoporosis As a practical clinical guideline, osteopenia may be graded as follows: Mild -1 through -1.5 Moderate -1.6 through -2.0 Severe -2.1 through -2.4 The Z-score is the number of standard deviations above or below age-matched controls. A Z-score of less than -1.5 would be considered abnormal. References: 1. NIH Osteoporosis and Related Bone Diseases www osteo.org 2. International Society for Clinical Densitometry www iscd.org 3. National Osteoporosis Foundation www nof.org Electronically Signed: Aris Ventura MD at 14:57 EDT ,
== END | disposition home or self-care (01) ==
PROVIDERS: PCP Internal Medicine; Referring Provider Internal Medicine; Visit Provider Internal Medicine
DX: Z78.0 Asymptomatic menopausal state (principal)
CPT/HCPCS: 77080

== ENCOUNTER → 2024-03-21 | Outpatient (CLI) | payer MEDICARE, SELFPAY ==
--- NOTE | 2024-03-21 10:32 | RAD_ITS ---
EXAM: XR LUMBOSACRAL SPINE, 4 OR 5 VIEWS CLINICAL INDICATION: Lumbar radiculopathy TECHNIQUE: Frontal, lateral and bilateral oblique views of the lumbar spine. COMPARISON: No relevant prior studies available. FINDINGS: VERTEBRAE: Mild degenerative anterolisthesis of L4 on L5 measuring 6 mm. Facet joint hypertrophy. Preserved vertebral body height. No fracture. Preservation of the normal lumbar lordosis. DISC SPACES: Degenerative changes of the intervertebral discs. GASTROINTESTINAL TRACT: Unremarkable as visualized. Included bowel gas pattern is non-obstructive. RAD/L/S Spine Min 4 Views IMPRESSION: 1. No acute injuries identified involving the lumbar spine. 2. Degenerative changes. 3. Mild degenerative anterolisthesis of L4 on L5 measuring 6 mm. Electronically Signed: Jake Nazario MD at 1:46 EST ,
[2024-03-21 12:10] LABS: Basophil# 0.09 X10^3/uL; Basophil% 1.1 % (0-1); Eosinophil# 0.54 X10^3/uL; Eosinophils% 6.4 % (0-5); Hematocrit 35.3 % (37-47); Hemoglobin 11.3 g/dL (12.0-15.0); Mean Corpuscular Volume 87.4 fL (81-99); Mean Platelet Vol. 10.5 fl (6.2-12.0); Monocyte% 7.1 % (0-10); NRBC Flagged by Analyzer 0 % (0-5); Neutrophil # 5.03 X10^3/uL (2.7-7.7); Neutrophil % 59.8 % (47-70); Platelet Count 355 K/mm3 (150-450); RBC Distribution Width CV 13.7 % (11.6-14.6); RBC Distribution Width SD 43.8 fl (35.1-43.9); Red Blood Count 4.04 M/mm3 (4.2-5.4); White Blood Count 8.4 K/mm3 (4.4-11.0)
[2024-03-21 12:30] LABS: ALB/GLOB Ratio 1.2 RATIO (0.9-2.4); AST(SGOT) 8 U/L (15-37); Alanine Aminotransfer ALT/SGPT 17 U/L (13-56); Albumin, Serum 3.7 g/dL (3.2-5.0); Alkaline Phosphatase 85 U/L (45-117); Anion Gap 4 (5-15); BUN 18 mg/dL (7-18); BUN/Creat Ratio 23.5 RATIO (10-20); Calcium,Total 9.4 mg/dL (8.5-10.1); Chloride 103 mmol/L (98-107); Creatinine, Serum 0.77 mg/dL (0.55-1.02); EST Glomerular Filtration Rate 77 mL/min (>60); Est Glom Filt Rate - Afr Amer 93 mL/min (>60); Globulin 3.1 g/dL (2.2-4.2); Glucose 221 mg/dL (74-106); Protein, Total 6.8 g/dL (6.4-8.2); Sodium Level 137 mmol/L (136-145)
[2024-03-21 12:37] LABS: Vitamin B12 900 pg/mL (211-911); Vitamin D,25 Hydroxy 24.4 ng/mL
== END | disposition home or self-care (01) ==
PROVIDERS: PCP Internal Medicine; Referring Provider Internal Medicine; Visit Provider Internal Medicine
DX: M54.16 Radiculopathy, lumbar region (principal); E11.69 Type 2 diabetes mellitus with other specified complication; E03.9 Hypothyroidism, unspecified; M85.80 Other specified disorders of bone density and structure, unspecified site; E78.5 Hyperlipidemia, unspecified
CPT/HCPCS: 36415; 72110; 80053; 82306; 82607; 85025

== ENCOUNTER 2024-04-06 14:46 | Outpatient (CLI) | payer MEDICARE, SELFPAY ==
[2024-04-06 15:08] VITALS: BP 151/60; PULSE 62; RESP 16; TEMP 35.9; O2SAT 99; BMI 28.9
[2024-04-06] MEDS: 0.9% NaCl Peripheral Flush Adult/Peds IV (15:18)
[2024-04-06] MEDS: Zoledronic Acid 5 MG 100 ML 300 MG IV (15:18)
[2024-04-06 15:47] VITALS: BP 152/52; PULSE 63
== END 2024-04-06 23:59 | disposition home or self-care (01) ==
LOC: MEDOUTP 14:47
PROVIDERS: PCP Internal Medicine; Referring Provider Internal Medicine; Visit Provider Internal Medicine
DX: M85.80 Other specified disorders of bone density and structure, unspecified site (principal)
CPT/HCPCS: 96365; A4216; J3489

== ENCOUNTER 2024-06-01 08:00 | Outpatient (RCR) | payer MEDICARE, SELFPAY ==
--- NOTE | 2024-05-04 09:58 | HP.PTEVAL ---
Patient's Visit Information Visit Information Visit Information: ALIZA PAYAN is a 78 year old F referred to Physical Therapy by Dr. Aldo White MD with a diagnosis of LUMBAR RADICULOPATHY. Date of Evaluation: 05/04/24 Physical Therapist: Inderjit Astorga, PT, Cert MDT, OCS Visit Plan Frequency: 2x /Week Duration: 4 Weeks Plan: PRECAUTION: OSTEOPOROSIS PT INTERVENTIONS DLS,POSTURAL EX'S ,STRENGTHENING BLE ,ACTIVITY MODIFICATION AND MODALTIES PRN Subjective Subjective: This 78 y/o female presents to physical lumbar radiculopathy. Patient has had lumbar pain for 15 years ago. Patient symptoms worse past several months with radicular symptoms to foot. Patient seen pain DR White recommended PT . Patient had prior x-rays showed DDD and Mild degenerative anterolisthesis of L4 on L5 measuring 6 mm. Patient had a mechanical fall tripping on curb Dr recommended MRI but needs PT. Location of pain Left sacral region left hip lateral leg to foot.These symptoms are intermittent. Aggravating factors walking ,standing . Alleviating factors sitting laying. Coughing/sneezing -. Bowel/bladder- . Patient sleeping good. Patient has osteoporosis and is high risk of fracture takes injection 1x year. Patient condition affects QOL and function. Patient goals to decrease pain. SOCIAL: VOCATION: retired Pain Left Lower Extremity: Pain Intensity (Out of 10): 4 Comment: walking Objective Objective: POSTURE: mild forward posture PALAPTION: unremarkable NEURO: denies paresthesia/tingling ,rEflexes 2/3 L3-4,L4-5,L5-S1 2/3 FLEXABILITY: hamstrings WFL MMT: quads/hams 4/5 ,hip flexion 4-/5 ,ankle 4/5 LUMBAR ROM: flexion min loss ,extension mod loss pain ,side glides min/mod loss Special Tests L/S Slump test left side: Negative L/S Slump test right side: Negative L/S Left Straight Leg Raise: Negative L/S Right Straight Leg Raise: Negative Lumbar Standing: Flexion - Mechanical Response: No effect Lumbar Standing: Flexion - Symptoms During Testing: No effect Lumbar Standing: Flexion - Symptoms After Testing: No effect Lumbar Standing: Extension - Mechanical Response: No effect Lumbar Standing: Extension - Symptoms During Testing: Increases Lumbar Standing: Extension - Symptoms After Testing: No worse Lumbar Standing: Right Side Glides - Mechanical Response: No effect Lumbar Standing: Right Side [place] - Symptoms During Testing: No effect Lumbar Standing: Right Side [place] - Symptoms After Testing: No effect Lumbar Standing: Left Side [place] - Mechanical Response: No effect Lumbar Standing: Left Side [place] - Symptoms During Testing: No effect Lumbar Standing: Left Side [place] - Symptoms After Testing: No effect Balance/Special Test Scores Oswestry Low Back Score: 19 Goals Goal 1:: Patient to be I with HEP for back Goal Time Frame: 4-6 Weeks Goal 2:: Patient to improve back oswestry score by 5 points to improve QOL and function Goal Time Frame: 4-6 Weeks Goal 3:: Patient to demonstrate 50% improvement with less pain and improved function with walking/standing Goal 4:: Patient to improve lumbar ROM for function of recovery to put on shoes Goal Time Frame: 4-6 Weeks Goal 5:: Patient be able to walk and stand > 15 mins for ADLS Rehabilitation Potential Physical Therapy Diagnosis: This patient has left lumbar radiculopathy with possible stenosis worse with standing ,walking anb better with sitting affects ADLS and housework tasks also comorbidities with osteoporosis thus benefit from skilled PT Rehabilitation Potential: Good Anticipated Interventions Patient/Client Instruction: Educate patient on: Condition and Plan of Care For the Purpose of:: To decrease pain, To increase ROM, To improve muscle performance and motor function, To improve ability to perform ADL's, To improve performance and independence with ADL's, To improve ability of physical actions for home/community/work/leisure, To improve health of tissue, To decrease soft tissue restriction, To increase flexibility/ROM and To prevent re-injury Therapeutic Exercise to Include: Strength training, Postural training, Flexibilty training and Dynamic Lumbar Stabilization Comment: BLE For the Purpose of:: To decrease pain, To increase ROM, To improve muscle performance and motor function, To improve ability to perform ADL's, To increase tolerance to activity/condition/position, To improve ability of physical actions for home/community/work/leisure and To improve tolerance to ADL's TENS: Yes IF ES: Yes Thermo therapy (hot pack): Yes Ultrasound (thermal/non thermal): Yes For the Purpose of:: To decrease pain, To increase ROM, To improve muscle performance and motor function, To improve ability to perform ADL's, To improve health of tissue and To decrease soft tissue restriction Text: Thank you for the opportunity to evaluate your patient. For Medicare and Medicare HMO plans, please review the plan of care and approve it. It will need to be FAXED BACK to us at [phone] for Medicare purposes. For Medicare only, by signing this I certify the plan of care. Please let me know if there are questions or concerns regarding this plan of care. Physician Signature: Date:
--- NOTE | 2024-06-01 08:27 | HP.PTDCSUM ---
Discharge Summary D/C summary: It has been my pleasure to treat ALIZA PAYAN referred by Dr. Aldo White MD, with the diagnosis of LUMBAR RADICULOPATHY for a total of 9 visit(s). Discharge Date: 06/01/24 Please see the following information for a summary of their discharge status. Subjective Subjective: C/O paresthesia in right foot . Patient plan to see DR Coleman Hip pain intermittent Pain Left Lower Extremity: Pain Intensity (Out of 10): 0 Objective Objective/Function: POSTURE: mild forward posture PALAPTION: unremarkable NEURO: denies paresthesia/tingling ,rEflexes 2/3 L3-4,L4-5,L5-S1 2/3 FLEXABILITY: hamstrings WFL MMT: quads/hams 4/5 ,hip flexion 4-/5 ,ankle 4/5 LUMBAR ROM: flexion min loss ,extension mod loss pain ,side glides min/mod loss Goals Goal 1:: Patient to be I with HEP for back Goal Progress: Goal Met Goal 2:: Patient to improve back oswestry score by 5 points to improve QOL and function Goal Progress: Goal Met Goal 3:: Patient to demonstrate 50% improvement with less pain and improved function with walking/standing Goal Progress: Goal Met Goal 4:: Patient to improve lumbar ROM for function of recovery to put on shoes Goal Progress: Goal Met Goal 5:: Patient be able to walk and stand > 15 mins for ADLS Goal Progress: Progressing Plan Plan: D/C HEP D/C Information Discharge Comments: HEP d/c sentence: If there are questions or concerns regarding this patient's physical therapy, please feel free to call me at [phone]. Thank you for the referral of this patient. Sincerely, Inderjit Astorga, PT, Cert MDT, OCS Balance/Gait/Functional tests Balance/Special Test Scores Oswestry Low Back Score: 4
== END 2024-06-01 19:00 | disposition home or self-care (01) ==
LOC: PT 08:00
PROVIDERS: PCP Internal Medicine; Referring Provider Anesthesiology; Visit Provider Anesthesiology
DX: M54.16 Radiculopathy, lumbar region (principal)
CPT/HCPCS: 97110; 97162; 97530

== ENCOUNTER → 2024-06-11 | Outpatient (CLI) | payer MEDICARE, SELFPAY ==
--- NOTE | 2024-06-11 07:45 | MRI_ITS ---
PROCEDURE: MRI lumbar spine without IV contrast REASON FOR EXAM: Pain, radiculopathy TECHNIQUE: Multisequence multiplanar MR images of the lumbar spine were obtained without the administration of intravenous contrast. COMPARISON: None. FINDINGS: Vertebral body heights are within normal limits. Negative for fracture or marrow replacement. Degenerative grade 1 anterolisthesis of L4-5. No significant scoliosis. Small left adnexal cyst measuring 2.7 cm. Paraspinal muscle atrophy. Conus medullaris is intact and terminates at L1. 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 L1-2: No focal disc abnormality, spinal stenosis or foraminal narrowing. L2-3: Minimal posterior disc bulge. Mild bilateral facet arthrosis. No significant spinal stenosis. Minimal bilateral foraminal narrowing. L3-4: Minimal posterior disc bulge. Mild bilateral facet arthrosis. No significant spinal stenosis. Minimal bilateral foraminal narrowing. L4-5: Degenerative grade 1 anterolisthesis with uncovering of the posterior disc. Superimposed diffuse disc bulge. Severe bilateral facet arthrosis and ligamentum flavum hypertrophy. Severe spinal stenosis with narrowing of the thecal sac measuring 3 mm in AP and TV dimensions. Moderate/severe bilateral foraminal narrowing. L5-S1: Posterior disc bulge. Severe bilateral facet arthrosis. Mild spinal stenosis with mild narrowing of both lateral recesses. Mild/moderate bilateral foraminal narrowing. MRI/Spine Lumbar (Routine) IMPRESSION: 1. Acquired severe spinal stenosis and moderate/severe bilateral foraminal narr owing at L4-5. 2. Acquired mild spinal stenosis at L5-S1. 3. Degenerative grade 1 anterolisthesis of L4-5. 4. Left adnexal cyst measuring up to 2.7 cm. Recommend further assessment with ultrasound. Reading Location: [facility]
== END | disposition home or self-care (01) ==
LOC: MRI 07:02
PROVIDERS: PCP Internal Medicine; Referring Provider Anesthesiology; Visit Provider Anesthesiology
DX: M54.16 Radiculopathy, lumbar region (principal)
CPT/HCPCS: 72148

== ENCOUNTER → 2024-10-18 | Outpatient (CLI) | payer MEDICARE, SELFPAY ==
[2024-10-18 13:01] LABS: Creatinine, Urine (random) 212.00 mg/dL (28.00-217.00); Microalbumin,Random Urine 26.6 mg/L (<20 mg/L)
[2024-10-18 13:41] LABS: AST(SGOT) 17 U/L (<=31); Alanine Aminotransfer ALT/SGPT 17 U/L (<=34); Albumin, Serum 4.4 g/dL (3.4-4.8); Alkaline Phosphatase 51 U/L (35-104); Anion Gap 13 (5-15); BUN 14 mg/dL (4-19); BUN/Creat Ratio 18.1 RATIO (10-20); Calcium,Total 9.9 mg/dL (7.6-11.0); Carbon Dioxide 26.4 mmol/L (21.0-32.0); Chloride 102 mmol/L (98-108); Cholesterol 192 mg/dL (<=200); Globulin 2.7 g/dL (2.2-4.2); Glucose 147 mg/dL (70-99); Low Density Lipoprotein Calc. 85 mg/dL; Potassium 4.0 mmol/L (3.3-5.1); Triglycerides 275 mg/dL; Very Low Density Lipoprotein 55 mg/dL (5-40); Vitamin D,25 Hydroxy 50.8 ng/mL (30-100); cholesterol:hdl ratio screen 3.69
--- OUTSIDE RECORDS SUMMARY | 2024-10-18 20:04 | XMS RPT_ITS | CCD ---
Author Organization [facility] CliniSyfl Care Team Providers Care Senior Sales Consultant Name Role Phone SABIHA HACKETT, Dr. Mac Primary Care Provider 1(33 0) Audra, Dr. Mac Attending Provider [phone])2 Audra, Dr. Mac Referring Provider [phone])2 Audra, Dr. Mac Primary Care Provider 1(33 0) Audra, Dr. Mac Attending Provider [phone])2 Audra, Dr. Mac Referring Provider [phone])2 Audra, Dr. Mac Primary Care Provider 1(33 0) Audra, Dr. Mac Attending Provider [phone])2 Dr. Bubba Zhu Referring Provider [phone])2 Dr. Bubba Zhu Primary Care Provider 1(33 0) Dr. Bubba Zhu Attending Provider 1(330)2 Dr. Bubba Zhu Referring Provider [phone])2 Dr. Luz Seymour Attending Provider SPARKLE Galicia Attending Provider Dr. Bubba Zhu Primary Care Provider 1(33 0) Dr. Bubba Zhu Attending Provider 1(330)2 Audra, Dr. Mac Referring Provider 1(330)2 Dr. Bubba Zhu MD Primary Care Provider Dr. Bubba Zhu MD Referring Provider 1(33 0) Chuy NORIEGA, Dr. Perry Attending Provider Audra NORIEGA, Dr. Mac Attending Provider 1(33 0) Christopher NORIEGA, Dr. Carlson Attending Provider 1(33 0) Christopher NORIEGA, Dr. Carlson Referring Provider 1(33 0) Audra NORIEGA, Dr. Mac Primary Care Provider Audra NORIEGA, Dr. Mac Attending Provider 1(33 0) Audra NORIEGA, Dr. Mac Referring Provider 1(33 0) Oleghe, Efewongbe Primary Care Unavailable Oleghe, Efewongbe Attending Unavailable Oleghe, Efewongbe Referring Unavailable Oleghe, Efewongbe Primary Care Unavailable Oleghe, Efewongbe Attending Unavailable Oleghe, Efewongbe Referring Unavailable Oleghe, Efewongbe Primary Care Unavailable Oleghe, Efewongbe Attending Unavailable Oleghe, Efewongbe Referring Unavailable Oleghe, Efewongbe Attending Unavailable Oleghe, Efewongbe Referring Unavailable Oleghe, Efewongbe Primary Care Unavailable Oleghe, Efewongbe Primary Care Unavailable Aldo White Attending Unavailable Aldo White Referring Unavailable Oleghe, Efewongbe Primary Care Unavailable Aldo White Attending Unavailable Aldo White Referring Unavailable Oleghe, Efewongbe Primary Care Unavailable Oleghe, Efewongbe Attending Unavailable Oleghe, Efewongbe Referring Unavailable Oleghe, Efewongbe Primary Care Unavailable Oleghe, Efewongbe Attending Unavailable Oleghe, Efewongbe Primary Care Unavailable Oleghe, Efewongbe Attending Unavailable Oleghe, Efewongbe Referring Unavailable Oleghe, Efewongbe Primary Care Unavailable Oleghe, Efewongbe Attending Unavailable Oleghe, Efewongbe Referring Unavailable Oleghe, Efewongbe Primary Care Unavailable Orlando Vera Attending Unavailable Oleghe, Efewongbe Referring Unavailable Oleghe, Efewongbe Primary Care Unavailable Orlando Vera Attending Unavailable Oleghe, Efewongbe Referring Unavailable Allergies Allergy Classification Reported Allergen(s) Allergy Type Date of Onset Reaction(s) Facility (6 sources) benazepril; Translations: [BENAZEPRIL] Drug Allergy 7 AOF, hives [facility] (11 sources) ciprofloxacin; Translations: [CIPROFLOXACIN] Drug Allergy 0 AOF, vomiting [facility] (11 sources) Penicillins; Translations: [PENICILLINS] Propensity to adverse reactions to drug (disorder) 7 AOF, rash [facility] (3 sources) bee venom protein (honey bee) Allergy to substance 4 Syncope [facility] (1 source) bee venom protein (honey bee) Drug allergy (disorder) 5 [facility] Medications Current Medications Medication Drug Class(es) Dates Sig (Normalized) Sig (Original) aspirin 81 mg delayed release oral tablet (9 sources) Platelet Aggregation Inhibitor, Nonsteroidal Anti-inflammatory Drug Start: 10-25-2018 take 1 tablet by mouth once daily Aspirin 81 mg tablet,delayed release (DR/EC) Active 81 mg PO DAILY October 25, 2018 12:00am cetirizine hydrochloride 10 mg oral tablet (9 sources) Histamine-1 Receptor Antagonist Start: 07-17-2020 take 1 tablet by mouth once daily as needed Cetirizine 10 mg tablet Active 10 mg PO DAILY as needed for allergy symptoms 30 0 July 17, 2020 12:00am cholecalciferol 0.125 mg oral capsule (3 sources) Vitamin D Start: 03-21-2024 End: 09-08-2024 take 1 capsule by mouth once daily Cholecalciferol (Vitamin D3) 125 mcg (5,000 unit) capsule Active 125 ug PO daily 90 1 September 08, 2024 8:08am Flash Glucose Scanning [place] (Freestyle Griselda 2 [place]) misc (11 sources) Start: 10-09-2023 Flash Glucose Scanning [place] (Freestyle Griselda 2 [place]) misc Active 0 .Route 1 3 October 09, 2023 9:39am As directed Start: 10-09-2023 Flash Glucose Scanning [place] (Freestyle Griselda 2 [place]) misc Active 0 .Route 1 October 09, 2023 9:39am As directed Start: 11-27-2021 End: 10-09-2023 Flash Glucose Scanning [place] (Freestyle Griselda 2 [place]) misc Discontinued 0 .Route 1 November 27, 2021 12:00am October 09, 2023 9:41am As directed Start: 11-27-2021 End: 10-09-2023 Flash Glucose Scanning [place] (Freestyle [place] 2 [place]) misc Discontinued 0 .Route November 27, 2021 12:00am October 09, 2023 9:41am As directed Start: 11-27-2021 Flash Glucose Scanning [place] (Freestyle Griselda 2 [place]) misc Active 0 .Route November 26, 2021 11:00pm As directed Start: 11-27-2021 Flash Glucose Scanning [place] (Freestyle Griselda 2 [place]) misc Active 0 .Route November 27, 2021 12:00am As directed Flash Glucose Sensor (Freest yle Griselda 2 Sensor) kit (11 sources) Start: 10-09-2023 Flash Glucose Sensor (Freestyle [place] 2 Sensor) kit Active 0 .Route 1 October 09, 2023 9:40am As directed Start: 10-09-2023 Flash Glucose Sensor (Freestyle [place]iselda 2 Sensor) kit Active 0 .Route October 09, 2023 9:40am As directed Start: 11-27-2021 End: 10-09-2023 Flash Glucose Sensor (Freest yle Griselda 2 Sensor) kit Discontinued 0 .Route 1 November 27, 2021 12:00am October 09, 2023 9:41am As directed Start: 11-27-2021 End: 10-09-2023 Flash Glucose Sensor (Freest yle Griselda 2 Sensor) kit Discontinued 0 .Route November 27, 2021 12:00am October 09, 2023 9:41am As directed Start: 11-27-2021 Flash Glucose Sensor (Freestyle [place]iselda 2 Sensor) kit Active 0 .Route November 26, 2021 11:00pm As directed Start: 11-27-2021 Flash Glucose Sensor (Freestyle [place] 2 Sensor) kit Active 0 .Route November 27, 2021 12:00am As directed naproxen sodium 220 mg oral capsule (11 sources) Nonsteroidal Anti-inflammatory Drug Start: 03-21-2024 take 1 capsule by mouth twice daily as needed for pain Naproxen Sodium (Aleve) 220 mg capsule Active 220 mg PO TWICE A DAY as needed for pain March 21, 2024 1:00am Start: 09-16-2017 End: 09-16-2017 take 1 tablet by mouth twice daily Naproxen Sodium 220 mg tablet Discontinued 220 mg PO TWICE A DAY September 16, 2017 12:00am September 16, 2017 2:14pm Semaglutide (3 sources) Start: 10-12-2024 Semaglutide (O zempic) 0.25 mg or 0.5 mg (2 mg/3 mL) pen injector Active 0.5 mg SC EVERY WEEK 3 October 12, 2024 9:21am Start: 08-05-2024 End: 10-12-2024 Semaglutide (Ozempic) 0.25 m g or 0.5 mg (2 mg/3 mL) pen injector Discontinued 0.25 mg SC EVERY WEEK 3 August 05, 2024 1:15pm October 12, 2024 9:26am for 4 weeks Start: 06-29-2024 End: 08-05-2024 Semaglutide (Ozempic) 0.25 m g or 0.5 mg (2 mg/3 mL) pen injector Discontinued 0.25 mg SC EVERY WEEK 3 June 29, 2024 12:00am August 05, 2024 1:15pm for 4 weeks triamcinolone acetonide 1 mg/ml topical cream (20 sources) Corticosteroid Start: 10-12-2023 Triamcinolone Acetonide 0.1 % cream Active 1 NMA TOPICAL TWICE A DAY as needed for rash 80 3 October 12, 2023 2:51pm Start: 07-17-2020 End: 10-12-2023 Triamcinolone Acetonide 0.1 % cream Discontinued 1 NMA TOPICAL TWICE A DAY as needed for rash 80 3 December 04, 2020 10:18am October 12, 2023 2:51pm Start: 07-17-2020 End: 12-04-2020 Triamcinolone Acetonide Acti ve 1 APPLIC TOPICAL TWICE A DAY December 04, 2020 9:18am Completed/Discontinued Medications Medication Drug Class(es) Dates Sig (Normalized) Sig (Original) amLODIPine 5 mg oral tablet (20 sources) Dihydropyridine Calcium Channel Nacho Start: 08-21-2020 End: 10-12-2024 take 1 tablet by mouth once daily Amlodipine 5 mg tablet Discontinued 5 mg PO DAILY 90 3 October 12, 2023 2:50pm March 21, 2024 10:37am Start: 05-13-2019 End: 08-21-2020 Amlodipine 10 mg tablet Disc ontinued 0 .ROUTE .COMPLEX 45 3 August 10, 2019 9:21am August 21, 2020 3:57pm TAKE 1/2 TABLET (5MG) DAILY Start: 05-13-2019 End: 08-21-2020 Amlodipine Discontinued 0 .R OUTE .COMPLEX 45 August 10, 2019 8:21am August 21, 2020 2:57pm TAKE 1/2 TABLET (5MG) DAILY Start: 11-24-2017 End: 05-13-2019 take 5 mg by mouth once daily Amlodipine 10 mg tablet Discontinued 5 mg PO daily 90 2 January 22, 2018 3:35pm May 13, 2019 2:19pm Start: 11-24-2017 End: 05-13-2019 take 5 mg by mouth once daily Amlodipine Discontinued 5 MG PO daily 90 January 22, 2018 2:35pm May 13, 2019 1:19pm Start: 09-16-2017 End: 11-24-2017 take 1 tablet by mouth once daily Amlodipine 10 mg tablet Discontinued 10 mg PO daily September 16, 2017 12:00am November 24, 2017 3:12pm atorvastatin 40 mg oral tablet (20 sources) HMG-CoA Reductase Inhibitor Start: 09-16-2017 End: 10-12-2024 Atorvastatin 40 mg tablet Discontinued 0 .ROUTE .COMPLEX 90 3 October 12, 2023 2:50pm March 21, 2024 10:37am TAKE 1 TABLET DAILY azithromycin 250 mg oral tablet (20 sources) Macrolide Antimicrobial Start: 04-21-2020 End: 05-23-2020 Azithromycin 250 mg tablet Discontinued 0 PO .COMPLEX 6 0 April 21, 2020 1:00am May 23, 2020 2:47pm Take two tablets by mouth on day one then one tablet by mouth on days 2-5 Start: 03-04-2019 End: 05-02-2019 take 2-5 tablets by mouth once daily Azithromycin 250 mg tablet Discontinued 0 PO .COMPLEX 6 0 March 04, 2019 1:00am May 02, 2019 9:44am take 500 mg today (day 1), then 250 mg for 4 days (days 2-5) PO Start: 12-01-2018 End: 01-31-2019 Azithromycin 250 mg tablet Discontinued 250 mg PO daily 6 0 December 01, 2018 12:00am January 31, 2019 9:45am 2 tablets today, then 1 tablet daily on days 2 through 5 Start: 03-03-2018 End: 04-26-2018 Azithromycin 250 mg tablet Discontinued 250 mg PO daily 6 0 March 03, 2018 1:00am April 26, 2018 10:35am 2 tablets today, then 1 tablet daily on days 2 through 5 benzonatate 100 mg oral capsule (9 sources) Non-narcotic Antitussive Start: 04-21-2020 End: 07-17-2020 take 1 capsule by mouth three times daily as needed for cough Benzonatate (Tessalon Perles) 100 mg capsule Discontinued 100 mg PO THREE TIMES A DAY as needed for cough 30 0 April 21, 2020 1:00am July 17, 2020 10:07am cinnamon bark 500 mg oral capsule (9 sources) Start: 09-16-2017 End: 07-26-2018 take 1 capsule by mouth once daily Cinnamon Bark (Cinnamon) 500 mg capsule Discontinued 1000 mg PO daily 0 September 16, 2017 12:00am July 26, 2018 8:54am ertugliflozin 15 mg oral tablet (20 sources) Start: 04-02-2021 End: 03-21-2024 Ertugliflozin (Steglatro) 15 mg tablet Discontinued 0 .ROUTE .COMPLEX 90 3 October 09, 2023 9:39am December 02, 2023 8:17am TAKE 1 TABLET EVERY MORNING FLUoxetine 10 mg oral capsule (20 sources) Serotonin Reuptake Inhibitor Start: 09-16-2017 End: 03-21-2024 Fluoxetine 10 mg capsule Discontinued 0 .ROUTE .COMPLEX 90 3 October 12, 2023 2:50pm March 21, 2024 10:37am TAKE 1 CAPSULE DAILY hydroCHLOROthiazide 12.5 mg / losartan potassium 50 mg oral tablet (20 sources) Thiazide Diuretic, Angiotensin 2 Receptor Nacho Start: 09-28-2017 End: 10-12-2024 Losartan-Hydrochl orothiazide 50-12.5 mg tablet Discontinued 1 {tbl} PO daily 90 3 October 12, 2023 2:50pm March 21, 2024 10:37am Start: 09-28-2017 End: 02-16-2023 take 1 tablet by mouth once daily Losartan-Hydrochlorothiazide Active 1 TA BLET PO daily 90 February 16, 2023 2:03pm levothyroxine sodium 0.075 mg oral tablet (20 sources) l-Thyroxine Start: 07-26-2018 End: 10-12-2024 Levothyroxine (Synthroid) 75 mcg tablet Discontinued 0 .ROUTE .COMPLEX 90 December 25, 2023 1:52pm March 21, 2024 10:37am TAKE 1 TABLET DAILY Start: 09-16-2017 End: 04-22-2018 take 1 tablet by mouth once daily Levothyroxine 75 mcg tablet Discontinued 75 ug PO daily 90 30 2 January 22, 2018 3:35pm April 21, 2018 1:00am April 22, 2018 1:09am magnesium oxide 500 mg oral capsule (18 sources) Start: 10-25-2018 End: 01-31-2019 take 1 capsule by mouth once daily Magnesium Oxide 500 mg capsule Discontinued 500 mg PO DAILY October 25, 2018 12:00am January 31, 2019 9:45am Start: 09-16-2017 End: 03-02-2018 take 1 tablet by mouth once daily Magnesium Oxide 500 mg tablet Discontinued 500 mg PO daily September 16, 2017 12:00am March 02, 2018 4:10pm meloxicam 7.5 mg oral tablet (18 sources) Nonsteroidal Anti-inflammatory Drug Start: 07-26-2018 End: 09-12-2020 take 1 tablet by mouth once daily Meloxicam (Mobic) 7.5 mg tablet Discontinued 7.5 mg PO DAILY 90 October 25, 2018 9:10am September 12, 2020 8:04am metFORMIN hydrochloride 500 mg oral tablet (20 sources) Biguanide Start: 05-13-2021 End: 04-14-2022 take 1000 mg by mouth twice daily Metformin Active 1000 MG PO TWICE A DAY 360 90 April 14, 2022 11:48am Start: 07-12-2019 End: 05-13-2021 Metformin Discontinued 0 .RO [place] .COMPLEX 60 April 24, 2021 2:14pm May 13, 2021 10:21am TAKE 2 TABLETS (1,000MG) TWICE A DAY Start: 07-26-2018 End: 03-21-2024 take 2 tablets by mouth twice daily Metformin 500 mg tablet Discontinued 1000 mg PO TWICE A DAY 360 90 3 October 12, 2023 2:50pm March 21, 2024 10:37am Start: 07-26-2018 End: 07-12-2019 take 1000 mg by mouth twice daily Metformin Discontinued 1000 MG PO TWICE A DAY 360 July 26, 2018 8:06am July 12, 2019 8:19am Start: 01-22-2018 End: 04-22-2018 Metformin 500 mg tablet exte nded release 24 hr Discontinued 1500 mg PO DAILY 270 90 0 January 22, 2018 2:52pm April 21, 2018 1:00am April 22, 2018 1:09am Start: 01-22-2018 End: 04-22-2018 take 1500 mg by mouth once daily Metformin Discontinued 1500 MG PO DAILY 270 90 January 22, 2018 1:52pm April 22, 2018 12:09am Start: 09-16-2017 End: 01-22-2018 Metformin 500 mg tablet exte nded release 24 hr Discontinued 1000 mg PO TWICE A DAY 360 90 0 November 24, 2017 3:10pm February 21, 2018 1:00am January 22, 2018 2:53pm Start: 09-16-2017 End: 01-22-2018 take 1000 mg by mouth twice daily Metformin Discontinued 1000 MG PO TWICE A DAY 360 90 November 24, 2017 2:10pm January 22, 2018 1:53pm nitrofurantoin, macrocrystals 100 mg oral capsule (18 sources) Nitrofuran Antibacterial Start: 03-12-2020 End: 07-17-2020 take 1 capsule by mouth every twelve hours at mealtime Nitrofurantoin Macrocrystal (Macrodantin) 100 mg capsule Discontinued 100 mg PO Q12H 14 0 May 23, 2020 1:00am July 17, 2020 10:07am must administer with a meal/food Nystatin 100,000 unit/mL suspension (2 sources) Start: 12-11-2023 End: 04-06-2024 Nystatin 100,000 unit/mL suspension Discontinued PO December 11, 2023 12:00am April 06, 2024 4:08pm omeprazole 40 mg delayed release oral capsule (20 sources) Proton Pump Inhibitor Start: 03-03-2022 End: 10-12-2024 take 1 capsule by mouth once daily Omeprazole 40 mg capsule,delayed release(DR/EC) Discontinued 40 mg PO DAILY 90 3 October 12, 2023 2:51pm March 21, 2024 10:37am predniSONE 10 mg oral tablet (20 sources) Start: 09-29-2022 End: 10-11-2022 Prednisone 10 mg tablet Discontinued 10 mg PO daily 30 12 0 September 29, 2022 12:00am October 10, 2022 12:00am October 11, 2022 12:13am Unspecified contact dermatitis, unspecified cause Take 4 tabs once daily days 1-3 3 tabs once daily days 4-6 2 tabs once daily days 7-9 and 1 tab once daily days 10-12. Start: 09-10-2021 End: 06-09-2022 take 2 tablets by mouth once daily Prednisone 20 mg tablet Discontinued 40 mg PO DAILY 10 September 10, 2021 12:00am June 09, 2022 10:21am Start: 09-10-2021 End: 06-09-2022 take 40 mg by mouth once daily Prednisone Discontinued 40 MG PO DAILY 10 September 09, 2021 11:00pm June 09, 2022 9:21am Start: 11-27-2019 End: 03-12-2020 take 1 tablet by mouth once daily Prednisone 20 mg tablet Discontinued 20 mg PO DAILY 5 0 November 27, 2019 12:00am March 12, 2020 1:55pm Unspecified contact dermatitis, unspecified cause rash raNITIdine 150 mg oral tablet (9 sources) Histamine-2 Receptor Antagonist Start: 09-16-2017 End: 09-16-2017 take 1 capsule by mouth twice daily Ranitidine Hcl 150 mg capsule Discontinued 150 mg PO TWICE A DAY September 16, 2017 12:00am September 16, 2017 2:14pm Start: 09-16-2017 End: 09-16-2017 take 1 capsule by mouth twice daily ranitidine 150 mg capsule Discontinued 150 MG PO TWICE A DAY September 16, 2017 12:00am September 16, 2017 2:14pm SITagliptin 100 mg oral tablet (18 sources) Dipeptidyl Peptidase 4 Inhibitor Start: 12-04-2020 End: 04-02-2021 take 1 tablet by mouth once daily Sitagliptin Phosphate 100 mg tablet Discontinued 100 mg PO DAILY 60 2 December 04, 2020 12:00am April 02, 2021 10:33am Start: 09-16-2017 End: 09-16-2017 take 1 tablet by mouth once daily Sitagliptin Phosphate (Januvia) 50 mg tablet Discontinued 50 mg PO daily September 16, 2017 12:00am September 16, 2017 2:14pm Turmeric Root Extract (9 sources) Start: 09-16-2017 End: 03-02-2018 take 1 capsule by mouth three times daily Turmeric Root Extract 500 mg capsule Discontinued 500 mg PO THREE TIMES A DAY September 16, 2017 12:00am March 02, 2018 4:11pm Start: 09-16-2017 End: 03-02-2018 take 500 mg by mouth three times daily Turmeric Root Extract Discontinued 500 MG PO THREE TIMES A DAY September 15, 2017 11:00pm March 02, 2018 3:11pm Start: 09-16-2017 End: 03-02-2018 take 500 mg by mouth three times daily Turmeric Root Extract Discontinued 500 MG PO THREE TIMES A DAY September 16, 2017 12:00am March 02, 2018 4:11pm Problems Active Problems Problem Classification Problem Date Documented Date Episodic/Chronic Abdominal pain (20 sources) Abdominal pain; Translations: [Unspecified abdominal pain] Episodic Allergic reactions (20 sources) Inflammatory dermatosis; Translations: [Dermatitis, unspecified] Episodic Anxiety disorders (10 sources) Generalized anxiety disorder; Translations: [Generalized anxiety disorder] 11-24-2017 Chronic Chronic obstructive pulmonary disease and bronchiectasis (9 sources) Bronchitis; Translations: [Bronchitis, not specified as acute or chronic] 03-03-2018 Episodic Diabetes mellitus with complications (1 source) Type 2 diabetes mellitus with other specified complication; Translations: [Type 2 diabetes mellitus with other specified complication] Onset: 10-12-2024 Chronic Diabetes mellitus without complication (20 sources) Type 2 diabetes mellitus without complication; Translations: [Type 2 diabetes mellitus without complications] Onset: 06-29-2024 Chronic Disorders of lipid metabolism (11 sources) Hyperlipidemia; Translations: [Hyperlipidemia, unspecified] Onset: 06-29-2024 09-16-2017 Chronic Diverticulosis and diverticulitis (9 sources) Diverticulitis; Translations: [Diverticulitis of intestine, part unspecified, without perforation or abscess without bleeding] 11-24-2017 Chronic E Codes: Fall (2 sources) Fall; Translations: [Unspecified fall, initial encounter] 06-29-2024 Episodic Esophageal disorders (6 sources) Gastroesophageal reflux disease; Translations: [Gastro-esophageal reflux disease without esophagitis] 09-08-2022 Chronic Essential hypertension (20 sources) Hypertensive disorder; Translations: [Essential (primary) hypertension] Onset: 03-21-2024 Chronic Genitourinary symptoms and ill-defined conditions (9 sources) Urinary incontinence; Translations: [Unspecified urinary incontinence] 01-22-2018 Chronic Hemorrhoids (9 sources) Internal hemorrhoids; Translations: [Other hemorrhoids] 11-24-2017 Episodic Osteoarthritis (9 sources) Osteoarthritis; Translations: [Unspecified osteoarthritis, unspecified site] 11-24-2017 Chronic Other and unspecified benign neoplasm (9 sources) Benign neoplasm of colon; Translations: [Benign neoplasm of colon, unspecified] 11-24-2017 Episodic Other bone disease and musculoskeletal deformities (4 sources) Osteopenia with high fracture risk; Translations: [Other specified disorders of bone density and structure, unspecified site] 03-21-2024 Episodic Other connective tissue disease (9 sources) Iliotibial band friction syndrome of right knee; Translations: [Iliotibial band syndrome, right leg] 12-04-2020 Episodic Other connective tissue disease (9 sources) Foot pain; Translations: [Pain in left foot] 08-10-2019 Episodic Other connective tissue disease (6 sources) Calcific tendinitis of left shoulder; Translations: [Calcific tendinitis of left shoulder] 06-13-2022 Episodic Other connective tissue disease (2 sources) Hand pain; Translations: [Pain in right hand] 12-02-2023 Episodic Other connective tissue disease (2 sources) Thigh pain; Translations: [Pain in right thigh] 08-10-2023 Episodic Other connective tissue disease (3 sources) Dupuytren's contracture; Translations: [Palmar fascial fibromatosis [Dupuytren]] 12-11-2023 Episodic Other connective tissue disease (3 sources) Triggering of digit; Translations: [Trigger finger, unspecified finger] 12-11-2023 Episodic Comment on above: Right ring Other connective tissue disease (2 sources) Weakness of face muscles; Translations: [Facial weakness] 08-10-2023 Episodic Other infections; including parasitic (12 sources) Post-viral disorder; 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] Chronic Other non-traumatic joint disorders (9 sources) Hip pain; Translations: [Pain in right hip] 12-04-2020 Episodic Other non-traumatic joint disorders (2 sources) Shoulder pain; Translations: [Pain in left shoulder] 06-09-2022 Episodic Other non-traumatic joint disorders (7 sources) Pain in left shoulder; Translations: [Pain in joint, shoulder region] 06-09-2022 Episodic Other nutritional; endocrine; and metabolic disorders (9 sources) Obese class I; Translations: [Obesity, unspecified] 09-16-2017 Chronic Other upper respiratory disease (9 sources) Seasonal allergy; Translations: [Other seasonal allergic rhinitis] 11-24-2017 Chronic Other upper respiratory infections (18 sources) Acute maxillary sinusitis; Translations: [Acute maxillary sinusitis, unspecified] 12-01-2018 Episodic Residual codes; unclassified (9 sources) Obstructive sleep apnea syndrome; Translations: [Obstructive sleep apnea (adult) (pediatric)] 10-11-2019 Chronic Residual codes; unclassified (9 sources) Postmenopausal state; Translations: [Asymptomatic menopausal state] 09-12-2020 Episodic Spondylosis; intervertebral disc disorders; other back problems (9 sources) Inflammation of sacroiliac joint; Translations: [Sacroiliitis, not elsewhere classified] 09-12-2020 Chronic Syncope (4 sources) Near syncope; Translations: [Syncope and collapse] 10-03-2022 Episodic Thyroid disorders (12 sources) Hypothyroidism; Translations: [Hypothyroidism, unspecified] Onset: 03-21-2024 11-24-2017 Chronic Unclassified (1 source) Obstructive sleep apnea (adult) (pediatric); Translations: [Obstructive sleep apnea (adult) (pediatric)] Onset: 03-04-2017 Chronic Unclassified (1 source) M54.16 - Radiculopathy, lumbar region Past or Other Problems Problem Classification Problem Date Documented Da te Episodic/Chronic Immunizations and screening for infectious disease (14 sources) Needs influenza immunization; Translations: [Encounter for immunization] Onset: 03-21-2024 Episodic Other bone disease and musculoskeletal deformities (1 source) Other specified disorders of bone density and structure, unspecified site; Translations: [Other specified disorders of bone density and structure, unspecified site] Onset: 06-29-2024 Episodic Other connective tissue disease (1 source) Pain in right hand; Translations: [Pain in right hand] Onset: 12-02-2023 Episodic Other screening for suspected conditions (not mental disorders or infectious disease) (3 sources) Patient encounter status; Translations: [Encounter for screening for nutritional disorder] Onset: 12-02-2023 12-02-2023 Episodic Residual codes; unclassified (1 source) Asymptomatic menopausal state; Translations: [Asymptomatic menopausal state] Onset: 01-21-2024 Episodic Spondylosis; intervertebral disc disorders; other back problems (5 sources) Lumbar radiculopathy; Translations: [Radiculopathy, lumbar region] Onset: 06-21-2024 Episodic Results Test Name Value Interpretation Reference Range Facility Internal Medicine Office Vis rafa 10-12-2024 Internal Medicine Office Visit [facility] [address] [place] [address] OFFICE VISIT Date of Service: 10/12/24 MR#: [id number] Acct: [id number] Name: YECENIA MERCADO Rep #: [id number] : 1945 Provider: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 [address] Platelet mean volume (Bld) [Entitic vol] 10.5 fL Normal 6.2-12.0 [facility] Comment on above: Performed By: #### L 506.1000, L503.0105, L500.4050, L100.0100 #### [facility] [address] [place], [address] Platelets (Bld) [#/Vol] 355 10*3/uL Normal 150-450 [facility] Comment on above: Performed By: #### L 506.1000, L503.0105, L500.4050, L100.0100 #### [facility] [address] [place], [address] RBC (Bld) [#/Vol] 4.04 10*6/uL Low 4.2-5.4 [facility] Comment on above: Performed By: #### L 506.1000, L503.0105, L500.4050, L100.0100 #### [facility] [address] [place], [address] RDW SD 43.8 fl Normal 35.1-43.9 [facility] Comment on above: Performed By: #### L 506.1000, L503.0105, L500.4050, L100.0100 #### [facility] [address] [place], [address] WBC (Bld) [#/Vol] 8.4 10*3/uL Normal 4.4-11.0 [facility] Comment on above: Performed By: #### L 506.1000, L503.0105, L500.4050, L100.0100 #### [facility] [address] [place], [address] Carbon dioxide measurementOr dered By: Bubba Zhu on 03-21-2024 CO2 [Moles/Vol] 30.0 mmol/L 21.0-32.0 [facility] Chloride measurementOrdered By: Bubba Zhu on 03-21-2024 Chloride [Moles/Vol] 103 mmol/L 98-107 [facility] Comprehensive Metabolic Prof ilon 03-21-2024 Albumin [Mass/Vol] 3.7 g/dL Normal 3.2-5.0 [facility] Comment on above: Performed By: #### L 506.1000, L503.0105, L500.4050, L100.0100 #### [facility] [address] [place], [address] Albumin/Globulin [Mass ratio] 1.2 {ratio} Normal 0.9-2.4 [facility] Comment on above: Performed By: #### L 506.1000, L503.0105, L500.4050, L100.0100 #### [facility] [address] [place], [address] ALK P 85 U/L Normal 45-117 [facility] Comment on above: Performed By: #### L 506.1000, L503.0105, L500.4050, L100.0100 #### [facility] [address] [place], [address] ALT [Catalytic activity/Vol] 17 U/L Normal 13-56 [facility] Comment on above: Performed By: #### L 506.1000, L503.0105, L500.4050, L100.0100 #### [facility] [address] [place], [address] AST [Catalytic activity/Vol] 8 U/L Low 15-37 [facility] Comment on above: Performed By: #### L 506.1000, L503.0105, L500.4050, L100.0100 #### [facility] [address] [place], [address] Bilirubin [Mass/Vol] 0.30 mg/dL Normal 0.20-1.00 [facility] Comment on above: Result Comment: For patients on eltrombopag therapy, use of Dimension [place] TBIL is not recommended. Performed By: #### L 506.1000, L503.0105, L500.4050, L100.0100 #### [facility] [address] [place], [address] BUN/CRE 23.5 RATIO High 10-20 [facility] Comment on above: Performed By: #### L 506.1000, L503.0105, L500.4050, L100.0100 #### [facility] [address] [place], [address] CA,Total 9.4 mg/dL Normal 8.5-10.1 [facility] Comment on above: Performed By: #### L 506.1000, L503.0105, L500.4050, L100.0100 #### [facility] [address] [place], [address] Chloride [Moles/Vol] 103 mmol/L Normal 98-107 [facility] Comment on above: Performed By: #### L 506.1000, L503.0105, L500.4050, L100.0100 #### [facility] [address] [place], [address] CO2 [Moles/Vol] 30.0 mmol/L Normal 21.0-32.0 [facility] Comment on above: Performed By: #### L 506.1000, L503.0105, L500.4050, L100.0100 #### [facility] [address] [place], [address] Creatinine [Mass/Vol] 0.77 mg/dL Normal 0.55-1.02 [facility] Comment on above: Result Comment: The validity of the calculated GFR GFRAA in patients over 70 years has not been determined. Clinical correlation is essential. Performed By: #### L 506.1000, L503.0105, L500.4050, L100.0100 #### [facility] [address] [place], [address] EST GFR - AA 93 mL/min Normal >60 [facility] Comment on above: Result Comment: Afri can [place] GFR Calc Performed By: #### L 506.1000, L503.0105, L500.4050, L100.0100 #### [facility] [address] [place], [address] GAP 4 Low 5-15 [facility] Comment on above: Performed By: #### L 506.1000, L503.0105, L500.4050, L100.0100 #### [facility] [address] [place], [address] GFR/1.73 sq M.predicted among non-blacks MDRD (S/P/Bld) [Vol rate/Area] 77 mL/min/{1.73_m2} Normal >[address] [facility] Comment on above: Result Comment: Non- GFR Calc Performed By: #### L 506.1000, L503.0105, L500.4050, L100.0100 #### [facility] [address] [place], [address] Globulin (S) [Mass/Vol] 3.1 g/dL Normal 2.2-4.2 [facility] Comment on above: Performed By: #### L 506.1000, L503.0105, L500.4050, L100.0100 #### [facility] [address] [place], [address] Glucose [Mass/Vol] 221 mg/dL High 74-106 [facility] Comment on above: Result Comment: Gluc ose result greater than or equal to 200 mg/dL suggests DIABETES MELLITUS per A.D.A. criteria. Performed By: #### L 506.1000, L503.0105, L500.4050, L100.0100 #### [facility] [address] [place], [address] Potassium [Moles/Vol] 4.0 mmol/L Normal 3.5-5.1 [facility] Comment on above: Performed By: #### L 506.1000, L503.0105, L500.4050, L100.0100 #### [facility] [address] [place], [address] Sodium [Moles/Vol] 137 mmol/L Normal 136-145 [facility] Comment on above: Performed By: #### L 506.1000, L503.0105, L500.4050, L100.0100 #### [facility] [address] [place], [address] T PROT 6.8 g/dL Normal 6.4-8.2 [facility] Comment on above: Performed By: #### L 506.1000, L503.0105, L500.4050, L100.0100 #### [facility] [address] [place], [address] Urea nitrogen [Mass/Vol] 18 mg/dL Normal 7-18 [facility] Comment on above: Performed By: #### L 506.1000, L503.0105, L500.4050, L100.0100 #### [facility] [address] [place], [address] Eosinophil percentageOrdered By: Bubba Zhu on 03-21-2024 Eosinophils/100 WBC (Bld) 6.4 % High 0-5 [facility] Erythrocyte distribution wid th ratioOrdered By: Bubba Zhu on 03-21-2024 Erythrocyte distribution width (RBC) [Ratio] 13.7 % 11.6-14.6 [facility] Erythrocyte distribution wid th standard deviationOrdered By: Nithyamario Zhu on 03-21-2024 Erythrocyte distribution width (RBC) [Entitic vol] 43.8 fL 35.1-43.9 [facility] Estimated glomerular filtrat ion rate (GFR) AmericanOrdered By: Bubba Zhu on 03-21-2024 Estimated GFR (MDRD) Amer 93 mL/min >60 [facility] Comment on above: GFR Calc Glomerular filtration rate ( GFR) estimationOrdered By: Bubba Zhu on 03-21-2024 Estimated GFR (MDRD) Non-Af Amer 77 mL/min >60 [facility] Comment on above: Non- GFR Calc Glucose measurementOrdered B y: Bubba Zhu on 03-21-2024 Glucose [Mass/Vol] 221 mg/dL High 74-106 [facility] Comment on above: Glucose result great er than or equal to 200 mg/dLsuggests DIABETES MELLITUS per A.D.A. criteria. Hematocrit Auto (Bld) [Volum e fraction]Ordered By: Bubba Zhu on 03-21-2024 Hematocrit (Bld) [Volume fraction] 35.3 % Low 37-47 [facility] Hemoglobin measurementOrdere d By: Bubba Zhu on 03-21-2024 Hemoglobin (Bld) [Mass/Vol] 11.3 g/dL Low 12.0-15.0 [facility] Immature granulocytes/100 WB C Auto (Bld)Ordered By: Bubba Zhu on 03-21-2024 Immature granulocytes/100 WBC (Bld) 0.600 % 0.0-0.9 [facility] Comment on above: IG% - Immature Granu locytes (promyelocytes, myelocytes and metamyelocytes) > 1% indicates that a LEFT SHIFT is Present. Internal Medicine Office Vis itobal 03-21-2024 Internal Medicine Office Visit [facility] [address] [place], [place] [address] OFFICE VISIT Date of Service: 03/21/24 MR#: [id number] Acct: [id number] Name: YECENIA MERCADO Rep #: [id number] : 1945 Provider: Dr. Bubba vang MD Age/Sex: 78/F [place] [facility] [place] Status: Signed Intake Vital Signs 12/11/23 10:46 03/11/24 10:40 03/21/24 09:17 Height 5 ft 2 in 5 ft 2 in 5 ft 2 in Weight: 162 lb BMI 29.6 BP 138/78 H Blood Pressure Location Lt brachial Position Sitting Respiration 16 Pulse 72 Pulse Source Monitor Temp 97.3 F L Temp Source Temporal Pulse Oximetry (%) 98 Oxygen Delivery Method room air Intake Visit Reasons: 3 M FU Chief Complaint: Follow-up chronic conditions Core Placer Required: No Is patient in pain?: Yes (L hip) Pain scale (1-10): 6 Allergies bee venom protein (honey bee) Allergy (Verified 03/21/24 09:04) Syncope Penicillins Allergy (Verified 03/21/24 09:04) rash ciprofloxacin Adverse Reaction (Verified 03/21/24 09:04) vomiting Medications ???Medication ???Instructions ???Recorded ???Confirmed ???Type aspirin 81 mg tablet,delayed 81 mg PO DAILY 10/25/18 03/21/24 History release cetirizine 10 mg tablet 10 mg PO DAILY PRN allergy 07/17/20 03/21/24 Rx symptoms #30 tabs flash glucose scanning reader #1 ea 10/09/23 03/21/24 Rx (FreeStyle Griselda 2 [place]) flash glucose sensor (FreeStyle #1 ea 10/09/23 03/21/24 Rx Griselda 2 Sensor kit) triamcinolone acetonide 0.1 % 1 applic topical BID PRN rash #80 10/12/23 03/21/24 Rx topical cream grams nystatin 100,000 unit/mL oral PO 12/11/23 03/21/24 History suspension amlodipine 5 mg tablet 5 mg PO DAILY #90 tabs 03/21/24 03/21/24 Rx atorvastatin 40 mg tablet See Rx Instructions .Route 03/21/24 03/21/24 Rx .COMPLEX #90 tabs ertugliflozin 15 mg tablet See Rx Instructions .Route 03/21/24 03/21/24 Rx (Steglatro) .COMPLEX #90 tabs fluoxetine 10 mg capsule See Rx Instructions .Route 03/21/24 03/21/24 Rx .COMPLEX #90 caps levothyroxine 75 mcg tablet See Rx Instructions .Route 03/21/24 03/21/24 Rx (Synthroid) .COMPLEX #90 tabs losartan 50 mg-hydrochlorothiaz constanza 1 tab PO QDAY #90 tabs 03/21/24 03/21/24 Rx 12.5 mg tablet metformin 500 mg tablet 1,000 mg (2 x 500 mg) PO BID 3 03/21/24 03/21/24 Rx months #360 tabs naproxen sodium 220 mg capsule 220 mg PO BID PRN 03/21/24 03/21/24 History (Aleve) omeprazole 40 mg capsule,delayed 40 mg PO DAILY #90 caps 03/21/24 03/21/24 Rx release Have you fallen in the past year?: No [facility] Medical History (Updated 03/21/24 @ 09:[address] Bubba Zhu MD) Osteopenia with high risk of fracture Lumbar radiculopathy Encounter for vitamin deficiency screening Right hand pain Right thigh pain Facial droop GERD (gastroesophageal reflux disease) Calcific tendinitis of left shoulder Left shoulder pain RUQ pain Abdominal pain [id number] condition Dermatitis Health care maintenance Flu vaccine need Iliotibial band syndrome, right leg Right hip pain Postmenopausal Hypertension Sacroiliitis Seasonal allergies Obstructive sleep apnea Obesity (BMI 30.0-34.9) Hyperlipidemia Hypothyroidism Type 2 diabetes mellitus without complications Osteoarthritis Internal hemorrhoids without mention of complication Generalized anxiety disorder Diverticulitis Benign neoplasm of colon Surgical History H/O excision of ganglion cyst History of left heart catheterization (06/24/10) History of tonsillectomy Family History Mother Diabetes CAD (coronary artery disease) Sister Diabetes Kidney disease Brother Diabetes CAD (coronary artery disease) Kidney disease Social History Smoking Status: Never smoker alcohol intake: current alcohol intake frequency: holidays/special occasions only substance use type: does not use what type of physical activity do you participate in: walking frequency: 3-4 times per week additional social history: denies vaping, denies marijuana use, denies edibles, denies history of blood clotting disorder, uses aspirin and ibuprofen uses Aleve HPI HPI Chief Complaint: Follow-up chronic conditions Details: YECENIA MERCADO, is a 78 F who presents to the office today for follow-up of her chronic medical conditions. Also has some concerns. She reports pain in her left lower back/buttock area which radiates down to her foot. Has noted numbness and tingling which is there almost all the time but worse after she has been on her feet for a long time. Change in bowel or bladder habit. Recent trauma. Recent bone density scan done suggestive of ost (more content not included)... Normal [facility] L/S Spine Min 4 Views02-28 L/S Spine Min 4 Views [facility] Imaging Services [address] [place], [place] [id number] (598) L/S Spine Min 4 Views MR#: [id number] Acct: [id number] Name: YECENIA MERCADO Rep #: [id number] : 1945 F 78 From: Jake Nazario MD PCP: Dr. Bubba Zhu MD Status: REG CLI Study: L/S Spine Min 4 Views Date of Exam: 03/21/24 Exam# [id number] Ordering Dr: Bubba Zhu MD -[id number] EXAM: XR LUMBOSACRAL SPINE, 4 OR 5 VIEWS CLINICAL INDICATION: Lumbar radiculopathy TECHNIQUE: Frontal, lateral and bilateral oblique views of the lumbar spine. COMPARISON: No relevant prior studies available. FINDINGS: VERTEBRAE: Mild degenerative anterolisthesis of L4 on L5 measuring 6 mm. Facet joint hypertrophy. Preserved vertebral body height. No fracture. Preservation of the normal lumbar lordosis. DISC SPACES: Degenerative changes of the intervertebral discs. GASTROINTESTINAL TRACT: Unremarkable as visualized. Included bowel gas pattern is non-obstructive. RAD/L/S Spine Min 4 Views IMPRESSION: 1. No acute injuries identified involving the lumbar spine. 2. Degenerative changes. 3. Mild degenerative anterolisthesis of L4 on L5 measuring 6 mm. Electronically Signed: Jake Nazario MD at 1:46 EST , CC: Dr. 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: Signed Normal [facility] - Chemistry and C hemistry - challengeOrdered By: Bubba Zhu on 03-21-2024 AST [Catalytic activity/Vol] 8 U/L Low 15-37 [facility] - Hematology and Cell countson 03-21-2024 HbA1c (Bld) [Mass fraction] 7.7 % High 4.2-6.3 [facility] Lymphocytes Auto (Unsp spec) [#/Vol]Ordered By: Bubba Zhu on 03-21-2024 Lymphocytes (Bld) [#/Vol] 2.10 10*3/uL 0.83-4.5 1 [facility] Lymphocytes/100 WBC Auto (Un sp spec)Ordered By: Bubba Zhu on 03-21-2024 Lymphocytes/100 WBC (Bld) 25.0 % 19-41 [facility] MCV (mean corpuscular volume ) determinationOrdered By: Efewongbe Wonghe on 03-21-2024 MCV (RBC) [Entitic vol] 87.4 fL 81-99 [facility] Mean corpuscular hemoglobin (MCH) determinationOrdered By: Efewongbe Wonmedardoe on 03-21-2024 MCH (RBC) [Entitic mass] 28.0 pg 27.0-32.0 [facility] Mean corpuscular hemoglobin concentration (MCHC) determinationOrdered By: Eflindsayongjose luis Uptonmedardoe on 03-21-2024 MCHC (RBC) [Mass/Vol] 32.0 g/dL 32-36 [facility] Mean platelet volume determi nationOrdered By: Eflindsayongbe Wonmedardoe on 03-21-2024 Platelet mean volume (Bld) [Entitic vol] 10.5 fL 6.2-12.0 [facility] Monocyte percentageOrdered B y: Eflindsayongbe Wonmedardoe on 03-21-2024 Monocytes/100 WBC (Bld) 7.1 % 0-10 [facility] Neutrophil percentageOrdered By: Eflindsayongbe Mejiae on 03-21-2024 Neutrophils/100 WBC (Bld) 59.8 % 47-70 [facility] Nucleated red blood cell per centageOrdered By: Nithyalindsayongbe Wonmedardoe on 03-21-2024 Nucleated RBC/100 WBC (Bld) [Ratio] 0 % 0-5 [facility] Platelet countOrdered By: Ef lindsayongbe Wonmedardoe on 03-21-2024 Platelets (Bld) [#/Vol] 355 10*3/uL 150-450 [facility] Potassium measurementOrdered By: Jonellearchiejose luis Uptonmedardofabio on 03-21-2024 Potassium [Moles/Vol] 4.0 mmol/L 3.5-5.1 [facility] RBC Auto (Bld) [#/Vol]Ordere d By: Eflindsayongbe Wonghe on 03-21-2024 RBC (Bld) [#/Vol] 4.04 10*6/uL Low 4.2-5.4 [facility] Serum anion gap measurementO rdered By: Bubba Zhu on 03-21-2024 Anion gap [Moles/Vol] 4 mmol/L Low 5-15 [facility] Serum globulin measurementOr dered By: Bubba Zhu on 03-21-2024 Globulin (S) [Mass/Vol] 3.1 g/dL 2.2-4.2 [facility] Serum or plasma alanine carranza otransferase (ALT) measurementOrdered By: Bubba Zhu on 03-21-2024 ALT [Catalytic activity/Vol] 17 U/L 13-56 [facility] Serum or plasma albumin zoe urement (mass/volume)Ordered By: Bubba Zhu 03-21-2024 Albumin [Mass/Vol] 3.7 g/dL 3.2-5.0 [facility] Serum or plasma alkaline khadra sphatase measurementOrdered By: Bubba Zhu 03-21-2024 ALP [Catalytic activity/Vol] 85 U/L 45-117 [facility] Serum or plasma calcium zoe urement (mass/volume)Ordered By: Bubba Zhu 03-21-2024 Calcium [Mass/Vol] 9.4 mg/dL 8.5-10.1 [facility] Serum or plasma creatinine m easurement (mass/volume)Ordered By: Bubba Zhu 03-21-2024 Creatinine [Mass/Vol] 0.77 mg/dL 0.55-1.02 [facility] Comment on above: The validity of the calculated GFR & GFRAA in patients over 70 years has not been determined. Clinical correlation is essential. Serum or plasma urea nitroge n measurement (mass/volume)Ordered By: Bubba Zhu on 03-21-2024 Urea nitrogen [Mass/Vol] 18 mg/dL 7-18 [facility] Sodium levelOrdered By: Jonelle connorsjohn Audra 03-21-2024 Sodium [Moles/Vol] 137 mmol/L 136-145 [facility] Total proteinOrdered By: Edwin Zhu 03-21-2024 Protein [Mass/Vol] 6.8 g/dL 6.4-8.2 [facility] Vitamin B12on 03-21-2024 Cobalamin (Vitamin B12) [Mass/Vol] 900 pg/mL Normal 1 [facility] Comment on above: Performed By: #### L 506.1000, L503.0105, L500.4050, L100.0100 ####[facility] [id number] [place], [place], [id number] Vitamin B12 measurementOrder ed By: Bubba Zhu on 03-21-2024 Cobalamin (Vitamin B12) [Mass/Vol] 900 pg/mL - [facility] Vitamin D,25 Hydroxyon 03-21 Vitamin D 25-OH 24.4 ng/mL Normal [facility] Comment on above: Result Comment: Soha min D 25(OH) Status Range Deficiency <20 ng/mL (50nmol/L) Insufficiency 20 - 30 ng/mL (50 - 75 nmol/L) Sufficiency 30 - 100 ng/mL (75 - 250 nmol/L) Toxicity >100 ng/mL (>250 nmol/L) Performed By: #### L 506.1000, L503.0105, L500.4050, L100.0100 ####[facility] [id number] [place], [place], [address] White blood cell (WBC) count Ordered By: Bubba Zhu on 03-21-2024 WBC (Bld) [#/Vol] 8.4 10*3/uL 4.4-11.0 [facility] Plastic Surgery Visit Report on 03-11-2024 Plastic Surgery Visit Report [facility] Plastic Reconstructive Surgery [address], [address] [place], [place] [address] OFFICE VISIT Date of Service: 03/11/24 MR#: [id number] Acct: [id number] Name: YECENIA MERCADO Rep #: [id number] : 1945 Provider: Dr. Orlando Vera MD Age/Sex: 78/F [place] [facility] Status: Signed Intake Vital Signs 12/11/23 10:46 03/11/24 10:40 Height 5 ft 2 in 5 ft 2 in Weight: 154 lb 4 oz 157 lb BMI 28.2 28.7 BP 126/65 H 144/78 H Blood Pressure Location Rt brachial Rt brachial Position Sitting Sitting Respiration 16 16 Pulse 61 70 Pulse Source Monitor Temp 98.0 F 98 F Temp Source Oral Oral Pulse Oximetry (%) 96 96 Oxygen Delivery Method room air room air Intake Visit Reasons: 3 M FU DUPUYTRENS Chief Complaint: 3month F/U dupuytrens Is patient in pain?: Yes (right hand ) Pain scale (1-10): 2 Allergies bee venom protein (honey bee) Allergy (Verified 03/11/24 10:41) Syncope Penicillins Allergy (Verified 03/11/24 10:41) rash ciprofloxacin Adverse Reaction (Verified 03/11/24 10:41) vomiting Medications ???Medication ???Instructions ???Recorded ???Confirmed ???Type aspirin 81 mg tablet,delayed 81 mg PO DAILY 10/25/18 03/11/24 History release cetirizine 10 mg tablet 10 mg PO DAILY PRN allergy 07/17/20 03/11/24 Rx symptoms #30 tabs flash glucose scanning reader #1 ea 10/09/23 03/11/24 Rx (FreeStyle Griselda 2 [place]) flash glucose sensor (FreeStyle #1 ea 10/09/23 03/11/24 Rx Griselda 2 Sensor kit) amlodipine 5 mg tablet 5 mg PO DAILY #90 tabs 10/12/23 03/11/24 Rx atorvastatin 40 mg tablet See Rx Instructions .Route 10/12/23 03/11/24 Rx .COMPLEX #90 tabs fluoxetine 10 mg capsule See Rx Instructions .Route 10/12/23 03/11/24 Rx .COMPLEX #90 caps losartan 50 mg-hydrochlorothiaz constanza 1 tab PO QDAY #90 tabs 10/12/23 03/11/24 Rx 12.5 mg tablet metformin 500 mg tablet 1,000 mg (2 x 500 mg) PO BID 3 10/12/23 03/11/24 Rx months #360 tabs omeprazole 40 mg capsule,delayed 40 mg PO DAILY #90 caps 10/12/23 03/11/24 Rx release triamcinolone acetonide 0.1 % 1 applic topical BID PRN rash #80 10/12/23 03/11/24 Rx topical cream grams ertugliflozin 15 mg tablet See Rx Instructions .Route 12/02/23 03/11/24 Rx (Steglatro) .COMPLEX #90 tabs nystatin 100,000 unit/mL oral PO 12/11/23 03/11/24 History suspension levothyroxine 75 mcg tablet See Rx Instructions .Route 12/25/23 03/11/24 Rx (Synthroid) .COMPLEX #90 tabs Have you fallen in the past year?: No Nurse's Note: 3 month F/U dupuytrens right hand PFSH Medical History Encounter for vitamin deficiency screening Right hand pain Right thigh pain Facial droop GERD (gastroesophageal reflux disease) Calcific tendinitis of left shoulder Left shoulder pain RUQ pain Abdominal pain [id number] condition Dermatitis Health care maintenance Flu vaccine need Iliotibial band syndrome, right leg Right hip pain Postmenopausal Hypertension Sacroiliitis Seasonal allergies Obstructive sleep apnea Obesity (BMI 30.0-34.9) Hyperlipidemia Hypothyroidism Type 2 diabetes mellitus without complications Osteoarthritis Internal hemorrhoids without mention of complication Generalized anxiety disorder Diverticulitis Benign neoplasm of colon Surgical History H/O excision of ganglion cyst History of left heart catheterization (06/24/10) History of tonsillectomy Family History Mother Diabetes CAD (coronary artery disease) Sister Diabetes Kidney disease Brother Diabetes CAD (coronary artery disease) Kidney disease Social History Smoking Status: Never smoker alcohol intake: current alcohol intake frequency: holidays/special occasions only substance use type: does not use what type of physical activity do you participate in: walking frequency: 3-4 times per week additional social history: denies vaping, denies marijuana use, denies edibles, denies history of blood clotting disorder, uses aspirin and ibuprofen uses Aleve HPI 3 M FU ELE Details: HPI: Yecenia Mercado is a [id number] 78-year-old year-old FM who presents with a chief complaint of pain over the right ring finger A1 raiza in her palm. She has had a trigger finger release on her left hand by Dr. Montesinos in the past, which helped with triggering. 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 This has been occurring for the past several months, without signs (more content not included)... Normal [facility] Dexa Bone Density Studyon Dexa Bone Density Study [facility] Imaging Services [address] [place] [address] Dexa Bone Density Study MR#: [id number] Acct: [id number] Name: YECENIA MERCADO Rep #: [id number] : 1945 F 78 From: Aris bonds MD PCP: Dr. Bubba Zhu MD Status: [facility] Study: Dexa Bone Density Study Date of Exam: 12/30/23 Exam# [id number] Ordering Dr: Bubba Zhu MD -[id number] STUDY: DUAL ENERGY X-RAY ABSORPTIOMETRY / DXA REASON FOR EXAM: Female, 78 years old. Post - Menopausal TECHNIQUE: Bone Mineral Density (BMD) measurements of lumbar spine and bilateral hips were obtained. COMPARISON: Comparison is made with prior study dated September 20, 2020. FINDINGS: Lumbar Spine (L1-L4): g/cm2 (1.017) / T-score (-0.3) / Z-score (2.4) Findings are suggestive of normal bone density with a low fracture risk. Left Femur Total: g/cm2 (0.915) / T-score (-0.2) / Z-score (1.9) Left Femoral Neck: g/cm2 (0.647) / T-score (-1.8) / Z-score (0.5) Right Femur Total: g/cm2 (0.830) / T-score (-0.9) / Z-score (1.2) Right Femoral Neck: g/cm2 (0.621) / T-score (-2.1) / Z-score (0.3) The T-Scores on the most recent prior examination were: Lumbar Spine (L1-L4): There has been worsening of bone density since the previous examination. Left Femur Total: which represents a worsening of 0.3%. Right Femur Total: which represents a worsening of 0.8%. BD/Dexa Bone Density Study IMPRESSION: The patient is considered osteopenic as outlined below according to World Ko Organization (WHO) criteria with a high fracture risk. There has been worsening of bone density since the previous examination. Reference Information: The T-score is the number of standard deviations above or below the standard which is normal for young adults at their peak bone mineral density. The World Health Organization (WHO) interprets the T-scores as follows: Above -1 Normal bone density Between -1 and -2.5 Osteopenia Equal to / or below -2.5 Osteoporosis As a practical clinical guideline, osteopenia may be graded as follows: Mild -1 through -1.5 Moderate -1.6 through -2.0 Severe -2.1 through -2.4 The Z-score is the number of standard deviations above or below age-matched controls. A Z-score of less than -1.5 would be considered abnormal. References: 1. NIH Osteoporosis and Related Bone Diseases www osteo.org 2. International Society for Clinical Densitometry www iscd.org 3. National Osteoporosis Foundation www nof.org Electronically Signed: Aris Ventura MD at 14:57 EDT , CC: Dr. 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 Orlando Vera MD Age/Sex: 78/F Location: [facility] Status: Signed with Addenda ADDENDUM by Dr. Orlando Vera MD on 12/23/23 at 0929 Assessment and Plan (No Qualifiers) Assessment and Plan (1) Trigger finger: Status: Acute Comment: Right ring (2) Dupuytren contracture of both hands: Status: Acute Plan: For today's infection (11 Dec 2023), the following medicines were used: KEnalog 10 was used , NDC: 3245-1622-59 [id number] LOT [id number] EXP Apr 2025 xilocaine w epi [facility] 72058-976-25 LOT [id number] EXP MAR 2025 12/23/23 0929 Date Orlando Vera MD cc: * Signed Intake Vital Signs 12/02/23 08:18 12/11/23 10:46 Height 5 ft 2 in 5 ft 2 in Weight: 155 lb 154 lb 4 oz BMI 28.3 28.2 BP 122/68 H 126/65 H Blood Pressure Location Lt brachial Rt brachial Position Sitting Sitting Respiration 14 16 Pulse 60 61 Pulse Source Monitor Temp 97.6 F L 98.0 F Temp Source Temporal Oral Pulse Oximetry (%) 97 96 Oxygen Delivery Method room air room air Intake Visit Reasons: PAIN R RIGHT Chief Complaint: pain in right ring finger Is patient in pain?: Yes (01/06) Allergies bee venom protein (honey bee) Allergy (Verified 12/11/23 10:50) Syncope Penicillins Allergy (Verified 12/11/23 10:50) rash ciprofloxacin Adverse Reaction (Verified 12/11/23 10:50) vomiting Medications ???Medication ???Instructions ???Recorded ???Confirmed ???Type aspirin 81 mg tablet,delayed 81 mg PO DAILY 10/25/18 12/11/23 History release cetirizine 10 mg tablet 10 mg PO DAILY PRN allergy 07/17/20 12/11/23 Rx symptoms #30 tabs flash glucose scanning reader #1 ea 10/09/23 12/11/23 Rx (FreeStyle Griselda 2 [place]) flash glucose sensor (FreeStyle #1 ea 10/09/23 12/11/23 Rx Griselda 2 Sensor kit) amlodipine 5 mg tablet 5 mg PO DAILY #90 tabs 10/12/23 12/11/23 Rx atorvastatin 40 mg tablet See Rx Instructions .Route 10/12/23 12/11/23 Rx .COMPLEX #90 tabs fluoxetine 10 mg capsule See Rx Instructions .Route 10/12/23 12/11/23 Rx .COMPLEX #90 caps levothyroxine 75 mcg tablet See Rx Instructions .Route 10/12/23 12/11/23 Rx (Synthroid) .COMPLEX #90 tabs losartan 50 mg-hydrochlorothiaz constanza 1 tab PO QDAY #90 tabs 10/12/23 12/11/23 Rx 12.5 mg tablet metformin 500 mg tablet 1,000 mg (2 x 500 mg) PO BID 3 10/12/23 12/11/23 Rx months #360 tabs omeprazole 40 mg capsule,delayed 40 mg PO DAILY #90 caps 10/12/23 12/11/23 Rx release triamcinolone acetonide 0.1 % 1 applic topical BID PRN rash #80 10/12/23 12/11/23 Rx topical cream grams ertugliflozin 15 mg tablet See Rx Instructions .Route 12/02/23 12/11/23 Rx (Steglatro) .COMPLEX #90 tabs nystatin 100,000 unit/mL oral PO 12/11/23 12/11/23 History suspension Have you fallen in the past year?: No Nurse's Note: pt here for pain in right ring finger [facility] Medical History Encounter for vitamin deficiency screening Right hand pain Right thigh pain Facial droop GERD (gastroesophageal reflux disease) Calcific tendinitis of left shoulder Left shoulder pain RUQ pain Abdominal pain [id number] condition Dermatitis Health care maintenance Flu vaccine need Iliotibial band syndrome, right leg Right hip pain Postmenopausal Hypertension Sacroiliitis Seasonal allergies Obstructive sleep apnea Obesity (BMI 30.0-34.9) Hyperlipidemia Hypothyroidism Type 2 diabetes mellitus without complications Osteoarthritis Internal hemorrhoids without mention of complication Generalized anxiety disorder Diverticulitis Benign neoplasm of colon Surgical History H/O excision of ganglion cyst History of left heart catheterization (06/24/10) History of tonsillectomy Family History Mother Diabetes CAD (coronary artery disease) Sister Diabetes Kidney disease Brother Diabetes CAD (coronary artery disease) Kidney disease Social History (Updated 12/11/23 @ 10:46 by Kaia Vickers) Smoking Status: Never smoker alcohol intake: current alcohol intake frequency: holidays/special occasions only substance use type: does not use what type of physical activity do you participate in: walking frequency: 3-4 times per week additional social history: denies vaping, denies marijuana use, denies edibles, denies history of blood clotting disorder, uses aspirin and ibuprofen uses Aleve (more content not included)... Normal [facility] Basic Metabolic Profile (BMP )on 12-02-2023 BUN/CRE 24.9 RATIO High 10-20 [facility] Comment on above: Performed By: #### L 500.2500, L506.1000, L501.9520, L503.0105 #### [facility] [address] [place], [address] CA,Total 9.5 mg/dL Normal 8.5-10.1 [facility] Comment on above: Performed By: #### L 500.2500, L506.1000, L501.9520, L503.0105 #### [facility] [address] [place], [address] Chloride [Moles/Vol] 103 mmol/L Normal 98-107 [facility] Comment on above: Performed By: #### L 500.2500, L506.1000, L501.9520, L503.0105 #### [facility] [address] [place], [address] CO2 [Moles/Vol] 30.0 mmol/L Normal 21.0-32.0 [facility] Comment on above: Performed By: #### L 500.2500, L506.1000, L501.9520, L503.0105 #### [facility] [address] [place], [address] Creatinine [Mass/Vol] 0.80 mg/dL Normal 0.55-1.02 [facility] Comment on above: Result Comment: The validity of the calculated GFR GFRAA in patients over 70 years has not been determined. Clinical correlation is essential. Performed By: #### L 500.2500, L506.1000, L501.9520, L503.0105 #### [facility] [address] [place], [address] EST GFR - AA 88 mL/min Normal >60 [facility] Comment on above: Result Comment: Afri can [place] GFR Calc Performed By: #### L 500.2500, L506.1000, L501.9520, L503.0105 #### [facility] [address] [place], [address] GAP 5 Normal 5-15 [facility] Comment on above: Performed By: #### L 500.2500, L506.1000, L501.9520, L503.0105 #### [facility] [address] [place], [address] GFR/1.73 sq M.predicted among non-blacks MDRD (S/P/Bld) [Vol rate/Area] 73 mL/min/{1.73_m2} Normal >[address] [facility] Comment on above: Result Comment: Non- GFR Calc Performed By: #### L 500.2500, L506.1000, L501.9520, L503.0105 #### [facility] [address] [place], [address] Glucose [Mass/Vol] 143 mg/dL High 74-106 [facility] Comment on above: Result Comment: Fast ing Glucose result greater than or equal to 126 mg/dL suggests DIABETES MELLITUS per A.D.A. criteria. Performed By: #### L 500.2500, L506.1000, L501.9520, L503.0105 #### [facility] [address] [place], [address] Potassium [Moles/Vol] 4.1 mmol/L Normal 3.5-5.1 [facility] Comment on above: Performed By: #### L 500.2500, L506.1000, L501.9520, L503.0105 #### [facility] [address] [place], [address] Sodium [Moles/Vol] 138 mmol/L Normal 136-145 [facility] Comment on above: Performed By: #### L 500.2500, L506.1000, L501.9520, L503.0105 #### [facility] [address] [place], [address] Urea nitrogen [Mass/Vol] 20 mg/dL High 7-18 [facility] Comment on above: Performed By: #### L 500.2500, L506.1000, L501.9520, L503.0105 #### [facility] [address] [place], [address] Internal Medicine Office Vis itobal 12-02-2023 Internal Medicine Office Visit [facility] [address] [address] [place] [address] OFFICE VISIT Date of Service: 12/02/23 MR#: [id number] Acct: [id number] Name: YECENIA MERCADO Rep #: [id number] : 1945 Provider: Dr. Bubba vang MD Age/Sex: 78/F [place] [facility] Status: Signed Intake Vital Signs 08/10/23 10:17 12/02/23 08:18 Height 5 ft 2 in 5 ft 2 in Weight: 155 lb BMI 28.3 BP 122/68 H Blood Pressure Location Lt brachial Position Sitting Respiration 14 Pulse 60 Pulse Source Monitor Temp 97.6 F L Temp Source Temporal Pulse Oximetry (%) 97 Oxygen Delivery Method room air Intake Visit Reasons: 3 M FU Chief Complaint: FU Chronic Condition Core Placer Required: No Is patient in pain?: Yes (R hand) Pain scale (1-10): 10 Allergies bee venom protein (honey bee) Allergy (Verified 12/02/23 08:10) Syncope Penicillins Allergy (Verified 12/02/23 08:10) rash ciprofloxacin Adverse Reaction (Verified 12/02/23 08:10) vomiting Medications ???Medication ???Instructions ???Recorded ???Confirmed ???Type aspirin 81 mg tablet,delayed 81 mg PO DAILY 10/25/18 12/02/23 History release cetirizine 10 mg tablet 10 mg PO DAILY PRN allergy 07/17/20 12/02/23 Rx symptoms #30 tabs flash glucose scanning reader #1 ea 10/09/23 12/02/23 Rx (FreeStyle Griselda 2 [place]) flash glucose sensor (FreeStyle #1 ea 10/09/23 12/02/23 Rx Griselda 2 Sensor kit) amlodipine 5 mg tablet 5 mg PO DAILY #90 tabs 10/12/23 12/02/23 Rx atorvastatin 40 mg tablet See Rx Instructions .Route 10/12/23 12/02/23 Rx .COMPLEX #90 tabs fluoxetine 10 mg capsule See Rx Instructions .Route 10/12/23 12/02/23 Rx .COMPLEX #90 caps levothyroxine 75 mcg tablet See Rx Instructions .Route 10/12/23 12/02/23 Rx (Synthroid) .COMPLEX #90 tabs losartan 50 mg-hydrochlorothiaz constanza 1 tab PO QDAY #90 tabs 10/12/23 12/02/23 Rx 12.5 mg tablet metformin 500 mg tablet 1,000 mg (2 x 500 mg) PO BID 3 10/12/23 12/02/23 Rx months #360 tabs omeprazole 40 mg capsule,delayed 40 mg PO DAILY #90 caps 10/12/23 12/02/23 Rx release triamcinolone acetonide 0.1 % 1 applic topical BID PRN rash #80 10/12/23 12/02/23 Rx topical cream grams ertugliflozin 15 mg tablet See Rx Instructions .Route 12/02/23 12/02/23 Rx (Steglatro) .COMPLEX #90 tabs Have you fallen in the past year?: No [facility] Medical History (Updated 12/02/23 @ 10:[address] Bubba Zhu MD) Encounter for vitamin deficiency screening Right hand pain Right thigh pain Facial droop GERD (gastroesophageal reflux disease) Calcific tendinitis of left shoulder Left shoulder pain RUQ pain Abdominal pain [id number] condition Dermatitis Health care maintenance Flu vaccine need Iliotibial band syndrome, right leg Right hip pain Postmenopausal Hypertension Sacroiliitis Seasonal allergies Obstructive sleep apnea Obesity (BMI 30.0-34.9) Hyperlipidemia Hypothyroidism Type 2 diabetes mellitus without complications Osteoarthritis Internal hemorrhoids without mention of complication Generalized anxiety disorder Diverticulitis Benign neoplasm of colon Surgical History H/O excision of ganglion cyst History of left heart catheterization (06/24/10) History of tonsillectomy Family History Mother Diabetes CAD (coronary artery disease) Sister Diabetes Kidney disease Brother Diabetes CAD (coronary artery disease) Kidney disease Social History Smoking Status: Never smoker alcohol intake: current alcohol intake frequency: holidays/special occasions only substance use type: does not use what type of physical activity do you participate in: walking frequency: 3-4 times per week HPI HPI Chief Complaint: FU Chronic Condition Details: YECENIA MERCADO, is a 78 F who presents to the office today for follow-up of her chronic medical conditions. Also has some concerns. She reports right ring finger pain which has been ongoing for about 2 months. Progressively worsening. Becoming difficult to make a fist. A1c today is at 7.5, similar to last 2 checks. She states that her average A1c on her monitor is 6.7 and her numbers have been coming down at home. No concerns for hypoglycemia. Taking medication as prescribed. Other chronic medical conditions are stable. Due for repeat bone density scan. ROS Const Constitutional: No body ache, chills, excessive sweating, fatigue, fever(s), frequent falls, headache(s), snoring, weakness, sleep problems or change in appetite Eyes Eyes: No blurry vision, change in vision, eye pain or Light sensitivity ENT ENT: No abnormal hearing, ear or mastoid p (more content not included)... Normal [facility] Thyroid Stim Hormone (TSH)on 12-02-2023 TSH 2.110 uIU/mL Normal 0.358-3.740 [facility] Comment on above: Performed By: #### L 500.2500, L506.1000, L501.9520, L503.0105 #### [facility] [address] [place], [address] Vitamin B12on 12-02-2023 Cobalamin (Vitamin B12) [Mass/Vol] 247 pg/mL Normal 211-911 [facility] Comment on above: Performed By: #### L 500.2500, L506.1000, L501.9520, L503.0105 #### [facility] [address] [place], [address] Vitamin D,25 Hydroxyon 12-01 Vitamin D 25-OH 29.9 ng/mL Normal [facility] Comment on above: Result Comment: Soha min D 25(OH) Status Range Deficiency <20 ng/mL (50nmol/L) Insufficiency 20 - 30 ng/mL (50 - 75 nmol/L) Sufficiency 30 - 100 ng/mL (75 - 250 nmol/L) Toxicity >100 ng/mL (>250 nmol/L) Performed By: #### L 500.2500, L506.1000, L501.9520, L503.0105 #### [facility] [address] [place], [address] Basophil percentageOrdered B y: Bubba Zhu on 05-13-2023 Chloride [Moles/Vol] 101 mmol/L 98-107 [facility] Glucose [Mass/Vol] 142 mg/dL 74-106 [facility] Comment on above: Fasting Glucose resu lt greater than or equal to 126 mg/dL suggests DIABETES MELLITUS per A.D.A. criteria. Potassium [Moles/Vol] 4.1 mmol/L 3.5-5.1 [facility] Sodium [Moles/Vol] 138 mmol/L 136-145 [facility] - Chemistry and C hemistry - challengeOrdered By: Bubba Zhu on 05-13-2023 CO2 [Moles/Vol] 30.0 mmol/L 21.0-32.0 [facility] Urea nitrogen/Creatinine [Mass ratio] 25.6 mg/mg 10-20 [facility] - Hematology and Cell countson 05-13-2023 HbA1c (Bld) [Mass fraction] 7.5 % 4.2-6.3 [facility] No Panel InformationOrdered By: Bubba Zhu on 05-13-2023 Estimated GFR (MDRD) Amer 82 mL/min >60 [facility] Comment on above: GFR Calc Estimated GFR (MDRD) Non-Af Amer 68 mL/min >60 [facility] Comment on above: Non- GFR Calc Serum or plasma calcium zoe urement (mass/volume)Ordered By: Bubba Zhu on 05-13-2023 Calcium [Mass/Vol] 9.6 mg/dL 8.5-10.1 [facility] Serum or plasma creatinine m easurement (mass/volume)Ordered By: Bubba Zhu on 05-13-2023 Creatinine [Mass/Vol] 0.86 mg/dL 0.55-1.02 [facility] Comment on above: The validity of the calculated GFR & GFRAA in patients over 70 years has not been determined. Clinical correlation is essential. Serum or plasma urea nitroge n measurement (mass/volume)Ordered By: Bubba Zhu on 05-13-2023 Urea nitrogen [Mass/Vol] 22 mg/dL -18 [facility] Thin prep Papanicolaou smear with manual screeningOrdered By: Bubba Zhu on 05-13-2023 Thin prep Papanicolaou smear with manual screening 7 -15 [facility] Absolute lymphocyte countOrd ered By: Bubba Zhu on 09-01-2022 Lymphocytes Auto (Unsp spec) [#/Vol] 2.61 10*3/uL 0.83-4.51 [facility] Basophil percentageOrdered B y: Bubba Zhu on 09-01-2022 Basophils/100 WBC (Bld) 1.0 % 0-1 [facility] Bilirubin [Mass/Vol] 0.40 mg/dL 0.20-1.00 [facility] Comment on above: For patients on eltr ombopag therapy, use of Dimension [place] TBIL is not recommended. Chloride [Moles/Vol] 103 mmol/L 98-107 [facility] Cholesterol [Mass/Vol] 183 mg/dL <[address] [facility] Comment on above: <200 mg/dL Desirable 200-240 mg/dL Borderline >240 mg/dL High Risk Eosinophils/100 WBC (Bld) 4.7 % 0-5 [facility] Glucose [Mass/Vol] 130 mg/dL 74-106 [facility] Comment on above: Fasting Glucose resu lt greater than or equal to 126 mg/dL suggests DIABETES MELLITUS per A.D.A. criteria. Neutrophils (Bld) [#/Vol] 4.6 10*3/uL 2.0-7.7 [facility] Neutrophils/100 WBC (Bld) 54.9 % 47-70 [facility] Potassium [Moles/Vol] 4.4 mmol/L 3.5-5.1 [facility] Protein [Mass/Vol] 7.1 g/dL 6.4-8.2 [facility] Sodium [Moles/Vol] 140 mmol/L 136-145 [facility] Triglyceride [Mass/Vol] 197 mg/dL <199 [facility] Comment on above: The drugs N-Acetylcy steine and Metamizole may falsely depress this assay.Serum Triglycerides Reference Interval Normal <150 mg/dL Borderline high 150 - 199 mg/dL High 200 - 499 mg/dL Very High > or = 500 mg/dL WBC (Bld) [#/Vol] 8.4 10*3/uL 4.4-11.0 [facility] Blood erythrocytes count (nu mber/volume)Ordered By: Bubba Zhu on 09-01-2022 RBC (Bld) [#/Vol] 4.47 10*6/uL 4.2-5.4 [facility] Blood hemoglobin measurement (mass/volume)Ordered By: Bubba Zhu on 09-01-2022 Hemoglobin (Bld) [Mass/Vol] 12.8 g/dL 12.0-15.0 [facility] Blood lymphocytes/100 leukoc ytesOrdered By: mario Zhu on 09-01-2022 Lymphocytes/100 WBC (Bld) 31.1 % 19-41 [facility] Blood monocytes/100 leukocyt esOrdered By: mario Zhu on 09-01-2022 Monocytes/100 WBC (Bld) 7.9 % 0-10 [facility] Blood platelet mean volumeOr dered By: mario Zhu on 09-01-2022 Platelet mean volume (Bld) [Entitic vol] 10.2 fL 6.2-12.0 [facility] Determination of erythrocyte mean corpuscular volume (MCV)Ordered By: Bubba Zhu on 09-01-2022 MCV (RBC) [Entitic vol] 89.5 fL 81-99 [facility] Hematocrit Auto (Bld) [Volum e fraction]Ordered By: Bubba Zhu on 09-01-2022 Hematocrit (Bld) [Volume fraction] 40.0 % 37-47 [facility] - Chemistry and C hemistry - challengeOrdered By: Bubba Zhu on 09-01-2022 ALP [Catalytic activity/Vol] 61 U/L 45-117 [facility] ALT [Catalytic activity/Vol] 21 U/L 13-56 [facility] CO2 [Moles/Vol] 31.0 mmol/L 21.0-32.0 [facility] Globulin (S) [Mass/Vol] 3.2 g/dL 2.2-4.2 [facility] Urea nitrogen/Creatinine [Mass ratio] 21.9 mg/mg 10-20 [facility] - Hematology and Cell countsOrdered By: Bubba Zhu on 09-01-2022 Erythrocyte distribution width (RBC) [Entitic vol] 44.5 fL 35.1-43.9 [facility] Erythrocyte distribution width (RBC) [Ratio] 13.6 % 11.6-14.6 [facility] Immature granulocytes/100 WBC (Bld) 0.400 % 0.0-0.9 [facility] Comment on above: IG% - Immature Granu locytes (promyelocytes, myelocytes and metamyelocytes) > 1% indicates that a LEFT SHIFT is Present. MCH (RBC) [Entitic mass] 28.6 pg 27.0-32.0 [facility] Nucleated RBC/100 WBC (Bld) [Ratio] 0 % 0-5 [facility] MCHC Auto (RBC) [Mass/Vol]Or dered By: uBbba Zhu on 09-01-2022 MCHC (RBC) [Mass/Vol] 32.0 g/dL 32-36 [facility] No Panel InformationOrdered By: Bubba Zhu on 09-01-2022 Estimated GFR (MDRD) Amer 99 mL/min >60 [facility] Comment on above: GFR Calc Estimated GFR (MDRD) Non-Af Amer 82 mL/min >60 [facility] Comment on above: Non- GFR Calc Urine Microalbumin/Creatinine Ratio 15.7 mg/g CRE <30 [facility] Platelets bldOrdered By: Edwin Zhu on 09-01-2022 Platelets (Bld) [#/Vol] 412 10*3/uL 150-450 [facility] Serum or plasma albumin zoe urement (mass/volume)Ordered By: Bubba Zhu on 09-01-2022 Albumin [Mass/Vol] 3.9 g/dL 3.2-5.0 [facility] Serum or plasma albumin/glob ulin mass ratioOrdered By: Bubba Zhu on 09-01-2022 Albumin/Globulin [Mass ratio] 1.2 {ratio} 0.9-2.4 [facility] Serum or plasma calcium zoe urement (mass/volume)Ordered By: Bubba Zhu on 09-01-2022 Calcium [Mass/Vol] 10.0 mg/dL 8.5-10.1 [facility] Serum or plasma cholesterol in HDL measurement (mass/volume)Ordered By: Bubba Zhu on 09-01-2022 Cholesterol in HDL [Mass/Vol] 51 mg/dL >40 [facility] Comment on above: The drugs N-Acetylcy steine and Metamizole may falsely depress this assay. Reference Range HDL <40 mg/dL Low HDL Cholesterol HDL >or= 60 mg/dL High HDL Cholesterol Serum or plasma cholesterol in VLDL measurement (mass/volume)Ordered By: Bubba Zhu on 09-01-2022 Cholesterol in VLDL [Mass/Vol] 39 mg/dL 5-40 [facility] Serum or plasma creatinine m easurement (mass/volume)Ordered By: Bubba Zhu on 09-01-2022 Creatinine [Mass/Vol] 0.73 mg/dL 0.55-1.02 [facility] Comment on above: The validity of the calculated GFR & GFRAA in patients over 70 years has not been determined. Clinical correlation is essential. Serum or plasma low density lipoprotein (LDL) cholesterol measurement (mass/volume)Ordered By: Bubba Zhu on 09-01-2022 Cholesterol in LDL [Mass/Vol] 93 mg/dL 0-130 [facility] Serum or plasma urea nitroge n measurement (mass/volume)Ordered By: Bubba Zhu on 09-01-2022 Urea nitrogen [Mass/Vol] 16 mg/dL 7-18 [facility] Thin prep Papanicolaou smear with manual screeningOrdered By: Bubba Zhu on 09-01-2022 Thin prep Papanicolaou smear with manual screening 12 U/L 15-37 [facility] Thin prep Papanicolaou smear with manual screening 6 5-15 [facility] Thin prep Papanicolaou smear with manual screening 9.5 mg/L NO RANGE EST. [facility] Urine creatinine measurement (mass/volume)Ordered By: Bubba Zhu on 09-01-2022 Creatinine (U) [Mass/Vol] 60.80 mg/dL NO RANGE EST. [facility] Whole blood hemoglobin A1c/t otal hemoglobin ratio (mass fraction)Ordered By: Bubba Zhu on 09-01-2022 HbA1c (Bld) [Mass fraction] 7.0 % 3.8-5.6 [facility] Comment on above: Normal < 5.7 % Predi abetic 5.7 - 6.4 % Diabetic >or= 6.5 % Please note range changes. Laboratory - Hematology and Cell countson 06-09-2022 HbA1c (Bld) [Mass fraction] 6.8 % 4.2-6.3 [facility] Basophil percentageOrdered B y: Dr. Zhu on 03-03-2022 Chloride [Moles/Vol] 104 mmol/L 98-107 [facility] Glucose [Mass/Vol] 119 mg/dL 74-106 [facility] Comment on above: Fasting Glucose resu lt from 100 to 125 mg/dL suggests IMPAIRED HOMEOSTASIS per A.D.A. criteria. Potassium [Moles/Vol] 4.3 mmol/L 3.5-5.1 [facility] Sodium [Moles/Vol] 140 mmol/L 136-145 [facility] Laboratory - Chemistry and C hemistry - challengeOrdered By: Dr. Zhu on 03-03-2022 CO2 [Moles/Vol] 29.0 mmol/L 21.0-32.0 [facility] Urea nitrogen/Creatinine [Mass ratio] 20.9 mg/mg 10-20 [facility] Laboratory - Hematology and Cell countson 03-03-2022 HbA1c (Bld) [Mass fraction] 6.9 % 4.2-6.3 [facility] No Panel InformationOrdered By: Dr. Zhu on 03-03-2022 Estimated GFR (MDRD) Amer 94 mL/min >60 [facility] Comment on above: GFR Calc Estimated GFR (MDRD) Non-Af Amer 78 mL/min >60 [facility] Comment on above: Non- GFR Calc Serum or plasma calcium zoe urement (mass/volume)Ordered By: Dr. Zhu on 03-03-2022 Calcium [Mass/Vol] 10.3 mg/dL 8.5-10.1 [facility] Serum or plasma creatinine m easurement (mass/volume)Ordered By: Dr. Zhu on 03-03-2022 Creatinine [Mass/Vol] 0.76 mg/dL 0.55-1.02 [facility] Comment on above: The validity of the calculated GFR & GFRAA in patients over 70 years has not been determined. Clinical correlation is essential. Serum or plasma urea nitroge n measurement (mass/volume)Ordered By: Dr. Zhu on 03-03-2022 Urea nitrogen [Mass/Vol] 16 mg/dL 7-18 [facility] Thin prep Papanicolaou smear with manual screeningOrdered By: Dr. Zhu on 03-03-2022 Thin prep Papanicolaou smear with manual screening 7 5-15 [facility] Absolute lymphocyte counton 11-27-2021 Lymphocytes Auto (Unsp spec) [#/Vol] 3.02 10*3/uL 0.83-4.51 [facility] Work Phone: Basophil percentageon 2021 Basophils/100 WBC (Bld) 0.7 % 0-1 [facility] Work Phone: Bilirubin [Mass/Vol] 0.30 mg/dL 0.20-1.00 [facility] Work Phone: Comment on above: For patients on eltr ombopag therapy, use of Dimension [place] TBIL is not recommended. Chloride [Moles/Vol] 102 mmol/L 98-107 [facility] Work Phone: Cholesterol [Mass/Vol] 203 mg/dL <[address] [facility] Work Phone: Comment on above: <200 mg/dL Desirable 200-240 mg/dL Borderline >240 mg/dL High Risk Eosinophils/100 WBC (Bld) 3.3 % 0-5 [facility] Work Phone: Glucose [Mass/Vol] 153 mg/dL 74-106 [facility] Work Phone: Comment on above: Fasting Glucose resu lt greater than or equal to 126 mg/dL suggests DIABETES MELLITUS per A.D.A. criteria. Neutrophils (Bld) [#/Vol] 6.7 10*3/uL 2.0-7.7 [facility] Work Phone: Neutrophils/100 WBC (Bld) 60.9 % 47-70 [facility] Work Phone: Potassium [Moles/Vol] 4.7 mmol/L 3.5-5.1 [facility] Work Phone: [phone] Protein [Mass/Vol] 7.3 g/dL 6.4-8.2 [facility] Work Phone: Sodium [Moles/Vol] 139 mmol/L 136-145 [facility] Work Phone: Triglyceride [Mass/Vol] 301 mg/dL <199 [facility] Work Phone: Comment on above: The drugs N-Acetylcy steine and Metamizole may falsely depress this assay.Serum Triglycerides Reference Interval Normal <150 mg/dL Borderline high 150 - 199 mg/dL High 200 - 499 mg/dL Very High > or = 500 mg/dL WBC (Bld) [#/Vol] 10.9 10*3/uL 4.4-11.0 [facility] Work Phone: Blood erythrocytes count (nu mber/volume)on 11-27-2021 RBC (Bld) [#/Vol] 4.43 10*6/uL 4.2-5.4 [facility] Work Phone: Blood hemoglobin measurement (mass/volume)on 11-27-2021 Hemoglobin (Bld) [Mass/Vol] 12.5 g/dL 12.0-15.0 [facility] Work Phone: Blood lymphocytes/100 leukoc yteson 11-27-2021 Lymphocytes/100 WBC (Bld) 27.6 % 19-41 [facility] Work Phone: Blood monocytes/100 leukocyt eson 11-27-2021 Monocytes/100 WBC (Bld) 7.0 % 0-10 [facility] Work Phone: Blood platelet mean volumeon 11-27-2021 Platelet mean volume (Bld) [Entitic vol] 10.4 fL 6.2-12.0 [facility] Work Phone: Determination of erythrocyte mean corpuscular volume (MCV)on 11-27-2021 MCV (RBC) [Entitic vol] 88.7 fL 81-99 [facility] Work Phone: Hematocrit Auto (Bld) [Volum e fraction]on 11-27-2021 Hematocrit (Bld) [Volume fraction] 39.3 % 37-47 [facility] Work Phone: Laboratory - Chemistry and C hemistry - challengeon 11-27-2021 ALP [Catalytic activity/Vol] 71 U/L 45-117 [facility] Work Phone: ALT [Catalytic activity/Vol] 26 U/L 13-56 [facility] Work Phone: CO2 [Moles/Vol] 31.0 mmol/L 21.0-32.0 [facility] Work Phone: Globulin (S) [Mass/Vol] 3.7 g/dL 2.2-4.2 [facility] Work Phone: Urea nitrogen/Creatinine [Mass ratio] 24.4 mg/mg 10-20 [facility] Work Phone: Laboratory - Hematology and Cell countson 11-27-2021 Erythrocyte distribution width (RBC) [Entitic vol] 46.0 fL 35.1-43.9 [facility] Work Phone: Erythrocyte distribution width (RBC) [Ratio] 14.3 % 11.6-14.6 [facility] Work Phone: Immature granulocytes/100 WBC (Bld) 0.500 % 0.0-0.9 [facility] Work Phone: Comment on above: IG% - Immature Granu locytes (promyelocytes, myelocytes and metamyelocytes) > 1% indicates that a LEFT SHIFT is Present. MCH (RBC) [Entitic mass] 28.2 pg 27.0-32.0 [facility] Work Phone: Nucleated RBC/100 WBC (Bld) [Ratio] 0 % 0-5 [facility] Work Phone: HbA1c (Bld) [Mass fraction] 7.8 % 4.2-6.3 [facility] Work Phone: MCHC Auto (RBC) [Mass/Vol]on 11-27-2021 MCHC (RBC) [Mass/Vol] 31.8 g/dL 32-36 [facility] Work Phone: No Panel Informationon 11-27 Estimated GFR (MDRD) Amer 70 mL/min >60 [facility] Work Phone: Comment on above: GFR Calc Estimated GFR (MDRD) Non-Af Amer 58 mL/min >60 [facility] Work Phone: Comment on above: Non- GFR Calc Platelets bldon 11-27-2021 Platelets (Bld) [#/Vol] 408 10*3/uL 150-450 [facility] Work Phone: Serum or plasma albumin zoe urement (mass/volume)on 11-27-2021 Albumin [Mass/Vol] 3.6 g/dL 3.2-5.0 [facility] Work Phone: Serum or plasma albumin/glob ulin mass ratioon 11-27-2021 Albumin/Globulin [Mass ratio] 1.0 {ratio} 0.9-2.4 [facility] Work Phone: Serum or plasma calcium zoe urement (mass/volume)on 11-27-2021 Calcium [Mass/Vol] 9.9 mg/dL 8.5-10.1 [facility] Work Phone: Serum or plasma cholesterol in HDL measurement (mass/volume)on 11-27-2021 Cholesterol in HDL [Mass/Vol] 45 mg/dL >40 [facility] Work Phone: Comment on above: The drugs N-Acetylcy steine and Metamizole may falsely depress this assay. Reference Range HDL <40 mg/dL Low HDL Cholesterol HDL >or= 60 mg/dL High HDL Cholesterol Serum or plasma cholesterol in VLDL measurement (mass/volume)on 11-27-2021 Cholesterol in VLDL [Mass/Vol] 60 mg/dL 5-40 [facility] Work Phone: Serum or plasma creatinine m easurement (mass/volume)on 11-27-2021 Creatinine [Mass/Vol] 0.98 mg/dL 0.55-1.02 [facility] Work Phone: Comment on above: The validity of the calculated GFR & GFRAA in patients over 70 years has not been determined. Clinical correlation is essential. Serum or plasma low density lipoprotein (LDL) cholesterol measurement (mass/volume)on 11-27-2021 Cholesterol in LDL [Mass/Vol] 98 mg/dL 0-130 [facility] Work Phone: Serum or plasma urea nitroge n measurement (mass/volume)on 11-27-2021 Urea nitrogen [Mass/Vol] 24 mg/dL 7-18 [facility] Work Phone: Thin prep Papanicolaou smear with manual screeningon 11-27-2021 Thin prep Papanicolaou smear with manual screening 15 U/L 15-37 [facility] Work Phone: Thin prep Papanicolaou smear with manual screening 6 5-15 [facility] Work Phone: Vital Signs Date Time Vital Sign Value Performing Clinician Nia rose 10-12-2024 08:57-0400 Body height 157.[address] Bubba Zhu MD Work Phone: [facility] 10-12-2024 08:57-0400 Body mass index (BMI) [Ratio] 27.6 kg/m2 Dr. Bubba Zhu MD Work Phone: [facility] 10-12-2024 08:57-0400 Body temperature 97.8 [degF] Dr. Bubba Zhu MD Work Phone: [facility] 10-12-2024 08:57-0400 Body weight 68.[address] Bubba Zhu MD Work Phone: [facility] 10-12-2024 08:57-0400 Diastolic blood pressure 55 mm[Hg] Dr. Bubba Zhu MD Work Phone: [facility] 10-12-2024 08:57-0400 Heart rate 67 /min Dr. Bubba Zhu MD Work Phone: [facility] 10-12-2024 08:57-0400 Respiratory rate 16 /min Dr. Bubba Zhu MD Work Phone: [facility] 10-12-2024 08:57-0400 SaO2% (BldA) [Mass fraction] 93 % Dr. Bubba Zhu MD Work Phone: [facility] 10-12-2024 08:57-0400 Systolic blood pressure 120 mm[Hg] Dr. Bubba Zhu MD Work Phone: [facility] 06-29-2024 09:03-0400 Body mass index (BMI) [Ratio] 29 kg/m2 Dr. Bubba Zhu MD Work Phone: [facility] 06-29-2024 09:03-0400 Body temperature 96 [degF] Dr. Bubba Zhu MD Work Phone: [facility] 06-29-2024 09:03-0400 Body weight 72.[address] Bubba Zhu MD Work Phone: [facility] 06-29-2024 09:03-0400 Diastolic blood pressure 72 mm[Hg] Dr. Bubba Zhu MD Work Phone: [facility] 06-29-2024 09:03-0400 Heart rate 59 /min Dr. Bubba Zhu MD Work Phone: [facility] 06-29-2024 09:03-0400 Respiratory rate 16 /min Dr. Bubba Zhu MD Work Phone: [facility] 06-29-2024 09:03-0400 SaO2% (BldA) [Mass fraction] 95 % Dr. Bubba Zhu MD Work Phone: [facility] 06-29-2024 09:03-0400 Systolic blood pressure 128 mm[Hg] Dr. Bubba Zhu MD Work Phone: [facility] 04-06-2024 15:47-0500 Diastolic blood pressure 52 mm[Hg] Dr. Bubba Zhu MD Work Phone: [facility] 04-06-2024 15:47-0500 Heart rate 63 /min Dr. Bubba Zhu MD Work Phone: [facility] 04-06-2024 15:47-0500 Systolic blood pressure 152 mm[Hg] Dr. Bubba Zhu MD Work Phone: [facility] 04-06-2024 15:08-0500 Body height 157.[address] Bubba Zhu MD Work Phone: [facility] 04-06-2024 15:08-0500 Body mass index (BMI) [Ratio] 28.9 kg/m2 Dr. Bubba Zhu MD Work Phone: [facility] 04-06-2024 15:08-0500 Body temperature 96.6 [degF] Dr. Bubba Zhu MD Work Phone: [facility] 04-06-2024 15:08-0500 Body weight 71.[address] Bubba Zhu MD Work Phone: [facility] 04-06-2024 15:08-0500 Respiratory rate 16 /min Dr. Bubba Zhu MD Work Phone: [facility] 04-06-2024 15:08-0500 SaO2% (BldA) [Mass fraction] 99 % Dr. Bubba Zhu MD Work Phone: [facility] 03-21-2024 09:17-0500 Body mass index (BMI) [Ratio] 29.6 kg/m2 Dr. Bubba Zhu MD Work Phone: [facility] 03-21-2024 09:17-0500 Body temperature 97.3 [degF] Dr. Bubba Zhu MD Work Phone: [facility] 03-21-2024 09:17-0500 Body weight 73.[address] Bubba Zhu MD Work Phone: [facility] 03-21-2024 09:17-0500 Diastolic blood pressure 78 mm[Hg] Dr. Bubba Zhu MD Work Phone: [facility] 03-21-2024 09:17-0500 Heart rate 72 /min Dr. Bubba Zhu MD Work Phone: [facility] 03-21-2024 09:17-0500 Respiratory rate 16 /min Dr. Bubba Zhu MD Work Phone: [facility] 03-21-2024 09:17-0500 SaO2% (BldA) [Mass fraction] 98 % Dr. Bubba Zhu MD Work Phone: [facility] 03-21-2024 09:17-0500 Systolic blood pressure 138 mm[Hg] Dr. Bubba Zhu MD Work Phone: [facility] 03-11-2024 10:40-0500 Body mass index (BMI) [Ratio] 28.7 kg/m2 Dr. Bubba Zhu MD Work Phone: [facility] 03-11-2024 10:40-0500 Body temperature 98 [degF] Dr. Bubba Zhu MD Work Phone: [facility] 03-11-2024 10:40-0500 Body weight 71.[address] Bubba Zhu MD Work Phone: [facility] 03-11-2024 10:40-0500 Diastolic blood pressure 78 mm[Hg] Dr. Bubba Zhu MD Work Phone: [facility] 03-11-2024 10:40-0500 Heart rate 70 /min Dr. Bubba Zhu MD Work Phone: [facility] 03-11-2024 10:40-0500 Respiratory rate 16 /min Dr. Bubba Zhu MD Work Phone: [facility] 03-11-2024 10:40-0500 SaO2% (BldA) [Mass fraction] 96 % Dr. Bubba Zhu MD Work Phone: [facility] 03-11-2024 10:40-0500 Systolic blood pressure 144 mm[Hg] Dr. Bubba Zhu MD Work Phone: [facility] 05-13-2023 10:44-0500 Body height 157.[address] Bubba Zhu Work Phone: [facility] 05-13-2023 10:44-0500 Body mass index (BMI) [Ratio] 26.6 kg/m2 Dr. Bubba Zhu Work Phone: [facility] 05-13-2023 10:44-0500 Body temperature 97.4 [degF] Dr. Bubba Zhu Work Phone: [facility] 05-13-2023 10:44-0500 Body weight 66.[address] Bubba Zhu Work Phone: [facility] 05-13-2023 10:44-0500 Diastolic blood pressure 68 mm[Hg] Dr. Bubba Zhu Work Phone: [facility] 05-13-2023 10:44-0500 Heart rate 68 /min Dr. Bubba Zhu Work Phone: [facility] 05-13-2023 10:44-0500 Respiratory rate 16 /min Dr. Bubba Zhu Work Phone: [facility] 05-13-2023 10:44-0500 SaO2% (BldA) [Mass fraction] 9 % Dr. Bubba Zhu Work Phone: [facility] 05-13-2023 10:44-0500 Systolic blood pressure 112 mm[Hg] Dr. Bubba Zhu Work Phone: [facility] 10-03-2022 23:14-0400 Diastolic blood pressure 51 mm[Hg] Dr. Bubba Zhu Work Phone: [facility] 10-03-2022 23:14-0400 Heart rate 73 /min Dr. Bubba Zhu Work Phone: [facility] 10-03-2022 23:14-0400 Respiratory rate 13 /min Dr. Bubba Zhu Work Phone: [facility] 10-03-2022 23:14-0400 SaO2% (BldA) [Mass fraction] 96 % Dr. Bubba Zhu Work Phone: [facility] 10-03-2022 23:14-0400 Systolic blood pressure 124 mm[Hg] Dr. Bubba Zhu Work Phone: [facility] 10-03-2022 21:33-0400 Body height 157.[address] Bubba Zhu Work Phone: [facility] 10-03-2022 21:33-0400 Body mass index (BMI) [Ratio] 28 kg/m2 Dr. Bubba Zhu Work Phone: [facility] 10-03-2022 21:33-0400 Body temperature 97.8 [degF] Dr. Bubba Zhu Work Phone: [facility] 10-03-2022 21:33-0400 Body weight 69.[address] Bubba Zhu Work Phone: [facility] 09-29-2022 13:31-0400 Body mass index (BMI) [Ratio] 27.8 kg/m2 Dr. Bubba Zhu Work Phone: [facility] 09-29-2022 13:31-0400 Body temperature 97.2 [degF] Dr. Bubba Zhu Work Phone: [facility] 09-29-2022 13:31-0400 Body weight 68.[address] Bubba Zhu Work Phone: [facility] 09-29-2022 13:31-0400 Diastolic blood pressure 70 mm[Hg] Dr. Bubba Zhu Work Phone: [facility] 09-29-2022 13:31-0400 Heart rate 82 /min Dr. Bubba Zhu Work Phone: [facility] 09-29-2022 13:31-0400 Respiratory rate 16 /min Dr. Bubba Zhu Work Phone: [facility] 09-29-2022 13:31-0400 SaO2% (BldA) [Mass fraction] 97 % Dr. Bubba Zhu Work Phone: [facility] 09-29-2022 13:31-0400 Systolic blood pressure 132 mm[Hg] Dr. Bubba Zhu Work Phone: [facility] 09-08-2022 09:20-0400 Body mass index (BMI) [Ratio] 28.3 kg/m2 Dr. Bubba Zhu Work Phone: [facility] 09-08-2022 09:20-0400 Body temperature 98 [degF] Dr. Bubba Zhu Work Phone: [facility] 09-08-2022 09:20-0400 Body weight 68.[address] Bubba Zhu Work Phone: [facility] 09-08-2022 09:20-0400 Diastolic blood pressure 70 mm[Hg] Dr. Bubba Zhu Work Phone: [facility] 09-08-2022 09:20-0400 Heart rate 63 /min Dr. Bubba Zhu Work Phone: [facility] 09-08-2022 09:20-0400 Respiratory rate 16 /min Dr. Bubba Zhu Work Phone: [facility] 09-08-2022 09:20-0400 SaO2% (BldA) [Mass fraction] 98 % Dr. Bubba Zhu Work Phone: [facility] 09-08-2022 09:20-0400 Systolic blood pressure 128 mm[Hg] Dr. Bubba Zhu Work Phone: [facility] 06-09-2022 10:24-0400 Body height 155.[address] Bubba Zhu Work Phone: [facility] 06-09-2022 10:24-0400 Body mass index (BMI) [Ratio] 28.6 kg/m2 Dr. Bubba Zhu Work Phone: [facility] 06-09-2022 10:24-0400 Body temperature 98.6 [degF] Dr. Bubba Zhu Work Phone: [facility] 06-09-2022 10:24-0400 Body weight 69.[address] Bubba Zhu Work Phone: [facility] 06-09-2022 10:24-0400 Diastolic blood pressure 62 mm[Hg] Dr. Bubba Zhu Work Phone: [facility] 06-09-2022 10:24-0400 Heart rate 59 /min Dr. Bubba Zhu Work Phone: [facility] 06-09-2022 10:24-0400 Respiratory rate 14 /min Dr. Bubba Zhu Work Phone: [facility] 06-09-2022 10:24-0400 SaO2% (BldA) [Mass fraction] 96 % Dr. Bubba Zhu Work Phone: [facility] 06-09-2022 10:24-0400 Systolic blood pressure 128 mm[Hg] Dr. Bubba Zhu Work Phone: [facility] 03-03-2022 10:08-0500 Body height 155.[address] Bubba Zhu Work Phone: [facility] Work Phone: 03-03-2022 10:08-0500 Body mass index (BMI) [Ratio] 28.3 kg/m2 Dr. Bubba Zhu Work Phone: [facility] 03-03-2022 10:08-0500 Body temperature 98.5 [degF] Dr. Bubba Zhu Work Phone: [facility] 03-03-2022 10:08-0500 Body weight 68.[address] Bubba Zhu Work Phone: [facility] 03-03-2022 10:08-0500 Diastolic blood pressure 70 mm[Hg] Dr. Bubba Zhu Work Phone: [facility] 03-03-2022 10:08-0500 Heart rate 51 /min Dr. Bubba Zhu Work Phone: [facility] 03-03-2022 10:08-0500 Respiratory rate 14 /min Dr. Bubba Zhu Work Phone: [facility] 03-03-2022 10:08-0500 SaO2% (BldA) [Mass fraction] 97 % Dr. Bubba Zhu Work Phone: [facility] 03-03-2022 10:08-0500 Systolic blood pressure 136 mm[Hg] Dr. Bubba Zhu Work Phone: [facility] 11-27-2021 14:44-0400 Body height 155.[address] Bubba Zhu Work Phone: [facility] Work Phone: 11-27-2021 14:44-0400 Body mass index (BMI) [Ratio] 30.7 kg/m2 Dr. Bubba Zhu Work Phone: [facility] Work Phone: 11-27-2021 14:44-0400 Body temperature 98.1 [degF] Dr. Bubba Zhu Work Phone: [facility] Work Phone: 11-27-2021 14:44-0400 Body weight 74.[address] Bubba Zhu Work Phone: [facility] Work Phone: 11-27-2021 14:44-0400 Diastolic blood pressure 58 mm[Hg] Dr. Bubba Zhu Work Phone: [facility] Work Phone: 11-27-2021 14:44-0400 Heart rate 68 /min Dr. Bubba Zhu Work Phone: [facility] Work Phone: 11-27-2021 14:44-0400 Respiratory rate 14 /min Dr. Bubba Zhu Work Phone: [facility] Work Phone: 11-27-2021 14:44-0400 SaO2% (BldA) [Mass fraction] 96 % Dr. Bubba Zhu Work Phone: [facility] Work Phone: 11-27-2021 14:44-0400 Systolic blood pressure 116 mm[Hg] Dr. Bubba Zhu Work Phone: [facility] Work Phone: 09-10-2021 08:44-0400 Body mass index (BMI) [Ratio] 30.9 kg/m2 Dr. Bubba Zhu Work Phone: [facility] Work Phone: 09-10-2021 08:44-0400 Body temperature 98.4 [degF] Dr. Bubba Zhu Work Phone: [facility] Work Phone: 09-10-2021 08:44-0400 Body weight 74.[address] Bubba Zhu Work Phone: [facility] Work Phone: 09-10-2021 08:44-0400 Diastolic blood pressure 82 mm[Hg] Dr. Bubba Zhu Work Phone: [facility] Work Phone: 09-10-2021 08:44-0400 Heart rate 64 /min Dr. Bubba Zhu Work Phone: [facility] Work Phone: 09-10-2021 08:44-0400 Respiratory rate 14 /min Dr. Bubba Zhu Work Phone: [facility] Work Phone: 09-10-2021 08:44-0400 SaO2% (BldA) [Mass fraction] 96 % Dr. Bubba Zhu Work Phone: [facility] Work Phone: 09-10-2021 08:44-0400 Systolic blood pressure 138 mm[Hg] Dr. Bubba Zhu Work Phone: [facility] Work Phone: Encounters Encounter Date Encounter Type Care Provider Facility Start: 10-12-2024 End: 10-12-[address] Bubba Zhu MD [facility] Work Phone: Start: 10-12-2024 End: 10-12-[address] Bubba Zhu MD Work Phone: -[facility] Start: 06-29-2024 End: 06-29-[address] Bubba Zhu MD -[facility] Work Phone: Start: 06-29-2024 End: 06-29-2024 ambulatory [facility] [place] [place]: 06-11-2024 End: 06-11-[address] Bubba Zhu MD Work Phone: [facility] Work Phone: Start: 06-11-2024 End: 06-11-[address] Aldo White MD -[facility] Work Phone: Start: 06-11-2024 End: 06-11-2024 ambulatory [facility] Facility:[facility] Start: 06-01-2024 End: 06-01-2024 ambulatory [facility] Facility:[facility] Start: 06-01-2024 End: 06-01-[address] Aldo White MD -Physical Therapy Work Phone: Start: 04-06-2024 End: 04-06-[address] Bubba Zhu MD -[facility] Out Work Phone: Start: 04-06-2024 End: 04-06-2024 ambulatory [facility] Facility:[facility] Start: 03-21-2024 End: 03-21-[address] Bubba Zhu MD -[facility] Work Phone: Start: 03-21-2024 End: 03-21-2024 amb[facility] Start: 03-21-2024 End: 03-21-20[facility] Start: 03-11-2024 End: 03-11-[address] Orlando Vera MD -[facility] Work Phone: Start: 03-11-2024 End: 03-11-2024 [facility] Start: 12-30-2023 End: 12-30-2023 ambulatory [facility] by [facility] Facility:[facility] Start: 12-11-2023 End: 12-11-2023 [facility] Start: 12-02-2023 End: 12-02-20[facility] Start: 12-02-2023 End: 12-02-2023 ambulatory [facility] by [facility] Facility:[facility] Start: 05-13-2023 End: 05-13-[address] Bubba Zhu Work Phone: [facility] Work Phone: Start: 05-13-2023 End: 05-13-[address] Bubba Zhu Work Phone: [facility] Work Phone: Start: 10-03-2022 End: 10-03-2022 Emergency department patient visit Dr. Bubba hZu Work Phone: [facility]-Emergency Department Work Phone: Start: 09-29-2022 End: 09-29-[address] Bubba Zhu Work Phone: [facility] Work Phone: Start: 09-08-2022 End: 09-08-[address] Bubba Zhu Work Phone: [facility] Work Phone: Start: 09-01-2022 End: 09-01-[address] Bubba Zhu Work Phone: [facility]-Laboratory, [facility] Start: 06-19-2022 End: 06-19-2022 Non-patient / Non-visit Dr. Bubba Zhu Work Phone: [facility] Work Phone: Start: 06-19-2022 End: 06-19-[address] Bubba Zhu Work Phone: [facility] Work Phone: Start: 06-19-2022 End: 06-19-[address] Bubba Zhu Work Phone: [facility]Pulmonary Services/Neurology Start: 06-13-2022 End: 06-13-[address] Bubba Zhu Work Phone: [facility] Work Phone: Start: 06-13-2022 End: 06-13-[address] Bubba Zhu Work Phone: [facility] Start: 06-09-2022 End: 06-09-[address] Bubba Zhu Work Phone: [facility] Start: 03-10-2022 End: 03-10-[address] Bubba Zhu Work Phone: [facility] Work Phone: Start: 03-10-2022 End: 03-10-[address] Bubba Zhu Work Phone: [facility] Start: 03-03-2022 End: 03-03-[address] Bubba Zhu Work Phone: [facility] Work Phone: Start: 03-03-2022 End: 03-03-[address] Bubba Zhu Work Phone: [facility] [place] Start: 03-03-2022 End: 03-03-[address] Bubba Zhu Work Phone: [facility] Start: 11-27-2021 End: 11-27-[address] Bubba Zhu Work Phone: [facility] Work Phone: Start: 11-27-2021 End: 11-27-[address] Bubba Zhu Work Phone: [facility] Start: 09-10-2021 End: 09-10-[address] Bubba Zhu Work Phone: [facility] Start: 07-17-[address] Bubba Zhu Work Phone: [facility] Start: 03-04-2017 End: 03-18-2017 Ambulatory [facility] Procedures Date Procedure Procedure Detail Performing Clinician Start: 06-11-2024 MRI of lumbar spine Dr. Bubba Zhu MD Work Phone: Start: 03-21-2024 X-ray of lumbosacral spine Dr. Bubba Zhu MD Work Phone: Start: 06-13-2022 Plain X-ray of shoulder Dr. Bubba vang Work Phone: Start: 03-10-2022 US scan of gallbladder Dr. Bubba stokes Work Phone: History of tonsillectomy History of tonsi llectomy Dr. Bubba Zhu Work Phone: Plan of Treatment Date Care Activity Detail Author Start: 04-06-2024 Iv infusion therapy/prophylaxis /dx 1st to 1 hr THER/PROPH/DIAG IV INF INIT [facility] Start: 03-21-2024 Patient referral [facility] Work Phone: CBC W Auto Different ial panel - Blood [facility] Comprehensive metabo lic 1999 panel - Serum or Plasma [facility] Electrocardiographic procedure [facility] Hemoglobin A1c/Hemog lobin.total in Blood [facility] Hemoglobin A1c/Hemog lobin.total in Blood [facility] Hemoglobin A1c/Hemog lobin.total in Blood [facility] Lipid 1995 panel - S sarika or Plasma [facility] Lipid 1995 panel - S sarika or Plasma [facility] Patient Education ED BEE STING G eneral Allergic Rxn ED Near-Fainting, Uncertain Cause [facility] Work Phone: Patient referral [facility] Work Phone: Thyroid stimulating hormone measurement [facility] Thyroid stimulating hormone measurement [facility] Urine microalbumin/c reatinine ratio measurement [facility] Vitamin D, 25-hydrox y measurement [facility] Immunizations Immunization Date Immunization Notes Care Provider Siddhartha gomes 03-21-2024 Seasonal trivalent influenza vaccine, adjuvanted, preservative free Dr. Bubba Zhu MD Work Phone: [facility] 01-14-2023 influenza, injectabl e, quadrivalent, preservative free Dr. Bubba Zhu Work Phone: [facility] 03-03-2022 influenza, injectabl e, quadrivalent, preservative free Dr. Bubba Zhu Work Phone: [facility] 03-03-2022 influenza, seasonal, injectable Dr. Bubba Zhu Work Phone: [facility] 03-15-2021 Covid (Pfizer) Dr. Bubba Zhu Work Phone: [facility] 12-04-2020 influenza, injectabl e, quadrivalent, preservative free Dr. Bubba Zhu Work Phone: [facility] 12-04-2020 influenza, seasonal, injectable Dr. Bubba Zhu Work Phone: [facility] 12-04-2020 influenza, seasonal, injectable, preservative free Dr. Bubba Zhu MD Work Phone: [facility] 06-21-2020 Covid (Pfizer) Dr. Bubba Zhu Work Phone: [facility] 05-31-2020 Covid (Pfizer) Dr. Bubba Zhu Work Phone: [facility] 01-30-2020 influenza, injectable,quadrivalent , preservative free, pediatric Dr. Bubba Zhu Work Phone: [facility] 01-30-2020 influenza, seasonal, injectable, preservative free Dr. Bubba Zhu MD Work Phone: [facility] 12-16-2013 influenza, high dose seasonal, preservative-free Dr. Bubba Zhu MD Work Phone: [facility] 01-11-2013 influenza, injectabl e, quadrivalent, preservative free Dr. Bubba Zhu MD Work Phone: [facility] Payers Date Payer Category Payer Self-pay [id number] 2023 Medicare [id number] Medicare MEDICARE PART A B [id number] Unknown [id number] Unknown [id number] 2.16.8 [id number] Unknown [id number] 2.16.8 [id number] Unknown [id number] 2.16.8 [id number] Unknown [id number] 2.16.8 [id number] Unknown [id number] 2.16.8 [id number] Unknown [id number] 2.16.8 [id number] Unknown [id number] 2.16.8 [id number] Unknown [id number] 2.16.8 [id number] Unknown [id number] 2.16.8 [id number] Unknown [id number] 2.16.8 [id number] Unknown [id number] 2.16.8 [id number] Unknown [id number] 2.16.8 [id number] Social History Date Type Detail Facility Start: 11-27-2021 End: 05-13-2023 Tobacco smoking status NHIS Unknown if ever smoked [facility] Start: 1945 Sex Assigned At Female W [facility] Start: 12-11-2023 Tobacco smoking stat us CAIS Never smoked tobacco (finding) [facility] Start: 06-21-2024 Sex Female (finding) [facility] Medical Equipment Procedure Code Equipment Code Equipment Origin al Text Equipment Identifier Dates Blood Sugar Diagnostic (Onetouch Verio Test Strips) strip Start: 10-12-2024 Mental Status Date Assessment Result Facility 04-06-2024 Cognitive function Voice/Name [facility] Work Phone: 10-03-2022 Cognitive function Level Of Cons ciousness Awake;Alert;Appropriate;Follow s Commands [facility] Work Phone: Evaluation note 06-29-2024 Note Date & Type Note Facility 06-29-2024 Evaluation note Diagnosis Onset Date Resolution Fall acute June 29 8:51am Osteopenia with high risk of fracture acute June 29, 2024 8:51am Hypertension chronic June 29, 2 025 8:51am Hypothyroidism chronic June 29, 2024 8:51am Type 2 diabetes mellitus chronic June 29, 2024 8:51am [facility] Work Phone: Evaluation note 03-11-2024 Note Date & Type Note Facility 03-11-2024 Evaluation note Diagnosis Onset Date Resolution Dupuytren contracture of both hands acute March 11, 024 10:14am Trigger finger acute February 272023 10:14am Osteopenia with high risk of fracture acute March 21, 2024 9:04am Hypertension chronic February 9:04am Lumbar radiculopathy chronic Dece mber 2023 9:04am Type 2 diabetes mellitus chronic March 21, 2024 9:04am [facility] Work Phone: Chief complaint+Reason for visit Narrative Note Date & Type Note Facility Chief complaint+Reason for v isit Narrative Reason for Visit [id number] condit ion Abdominal pain Hypertension Type 2 diabetes mellitus Flu vaccine need RUQ pain Abdominal pain Hypertension Type 2 diabetes mellitus [facility] Work Phone: Evaluation note Note Date & Type Note Facility Evaluation note Diagnosis Onset Date Dermatitis acute Abdominal pain acute [id number] condition acut e Hypertension chronic Type 2 diabetes mellitus chr ic [facility] Work Phone: Evaluation note Note Date & Type Note Facility Evaluation note Diagnosis Onset Date [id number] condition acut e Abdominal pain chronic Hypertension chronic Type 2 diabetes mellitus chr onic Flu vaccine need acute RUQ pain acute Abdominal pain chronic Hypertension chronic Type 2 diabetes mellitus chr onic [facility] Work Phone: Evaluation note Note Date & Type Note Facility Evaluation note Diagnosis Onset Date Flu vaccine need acute RUQ pain acute Abdominal pain chronic Hypertension chronic Type 2 diabetes mellitus chr onic Hypertension chronic Left shoulder pain chronic Type 2 diabetes mellitus chr onic [facility] Work Phone: Evaluation note Note Date & Type Note Facility Evaluation note Diagnosis Onset Date Hypertension chronic Left shoulder pain chronic Type 2 diabetes mellitus chr onic GERD (gastroesophageal reflux disease) chronic Hypertension chronic Hypothyroidism chronic Type 2 diabetes mellitus chr onic Irritant contact dermatitis due to plant acute [facility] Work Phone: Evaluation note Note Date & Type Note Facility Evaluation note Diagnosis Onset Date Generalized anxiety disorder chronic GERD (gastroesophageal reflux disease) chronic Hyperlipidemia chronic Hypertension chronic Type 2 diabetes mellitus chr [facility] Work Phone: Reason for referral (narrative) Note Date & Type Note Facility Reason for referral (narrative) No reason for referral information available [facility] Work Phone: Summary Purpose Family History No Family History Records Found Relationship Condition Age at Onset Recorded Date/T hazel mother Diabetes mellitus Unknown Coronary artery disease Unknown sister Diabetes mellitus Unknown Kidney disorder Unknown brother Diabetes mellitus Unknown Advance Directives No Advanced Directives Records Found Advance Directive Response Recorded Date/ Time Living Will Yes April 27 8:42pm Power of Instrument Man Yes April 27, 2018 8:42pm Advance Directive Response Recorded Date/ Time Living Will Yes April 27 7:42pm Power of Instrument Man Yes April 27, 2018 7:42pm Advance Directive Response Recorded Date/ Time Living Will Yes October 03, 2022 9 :43pm Power of Instrument Man No October 03, 2022 9:43pm Advance Directive Response Recorded Date/ Time Living Will Yes October 03, 2022 8 :43pm Power of Instrument Man No October 03, 2022 8:43pm Advance Directive Response Recorded Date/ Time Living Will Yes October 03, 2022 9 :43pm Do you have a Healthcare Power of Instrument Man? No October 03, 2022 9:43pm Chief Complaint and Reason for Visit Chief Complaint bug bite on face 3 M FU Reason for Visit Dermatitis Abdominal pain [id number] condition Hypertension Type 2 diabetes mellitus Chief Complaint 3 M FU RUQ PAIN 3 M FU EORDERS- XRAY- Left Shoulder Pain Reason for Visit Flu vaccine need RUQ pain Abdominal pain Hypertension Type 2 diabetes mellitus Hypertension Left shoulder pain Type 2 diabetes mellitus Chief Complaint 3 M FU RUQ PAIN 3 M FU EORDERS- XRAY- Left Shoulder Pain HYPERTENSION Reason for Visit Flu vaccine need RUQ pain Abdominal pain Hypertension Type 2 diabetes mellitus Hypertension Left shoulder pain Type 2 diabetes mellitus Chief Complaint 3 M FU EORDERS- XRAY- Left Shoulder Pain HYPERTENSION HYPERTENSION 3 m fu POISON JOSE JUAN ALLERGIC REACTION Reason for Visit Hypertension Left shoulder pain Type 2 diabetes mellitus GERD (gastroesophageal reflux disease) Hypertension Hypothyroidism Type 2 diabetes mellitus 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 RX HERE June 01, 2024 8:00am LUMBAR RAD June 11, 2024 7:0 1am Reason for Visit Admit Date Dupuytren contracture of both hands Dece mber 2023 10:14am Trigger finger March 11, 2024 10:14am Osteopenia with high risk of fracture De cember 2023 9:04am Hypertension March 21, 2024 9:04am Lumbar radiculopathy March 21, 2024 9:04am Type 2 diabetes mellitus March 21, 2024 9:04am Chief Complaint Admit Date 3 M FU June 29, 2024 8:51 am 3 M FU October 12, 2024 8:47 am Reason for Visit Admit Date Fall June 29, 2024 8:51 am Osteopenia with high risk of fracture Ap ril 2024 8:51am Hypertension June 29, 2024 8:51 am Hypothyroidism June 29, 2024 8:51 am Type 2 diabetes mellitus June 29, 2024 8:51am Additional Source Comments INFORMATION SOURCE (unrecogn ized section and content) DATE CREATED AUTHOR 09/22/2017 [facility] DATE CREATED AUTHOR AUTHOR'S ORGANIZ ATION 10/16/2024 [facility] Goals (unrecognized section and content) Goals may be documented in a n alternate sectionGoals may be documented in an alternate sectionGoals may be documented in an alternate sectionGoals may be documented in an alternate sectionGoals may be documented in an alternate sectionGoals may be documented in an alternate sectionGoals may be documented in an alternate sectionGoals may be documented in an alternate sectionGoals may be documented in an alternate section Care Teams (unrecognized sec tion and content) Team Status: Active Member Role Status Dates Dr. Bubba Zhu MD Family Provider Active Dr. Bubba Zhu MD Primary Care Provider Active Team Status: Inactive Member Role Status Dates Dr. Bubba Zhu MD Primary Care P rovider, Attending Provider, Referring Provider Active Team Status: Inactive Member Role Status Dates Dr. Bubba Zhu MD Primary Care Provider, Atten ding Provider Active Team Status: Active Member Role Status Dates Dr. Bubba Zhu MD Primary Care Provider, Refer ring Provider Active Dr. Luz Seymour MD Attending Provider Active Team Status: Inactive Member Role Status Dates Dr. Bubba Zhu MD Primary Care Provider, Refer ring Provider Active Rock VILLAGRAN [place] Attending Provider Active Team Status: Inactive Member Role Status Dates Dr. Bubba Zhu MD Primary Care Provider Active Dr. Blessing Koehler MD Emergency Provider Active Team Status: Active Member Role Status Dates Dr. Bubba Zhu MD Primary Care Provider Active Team Status: Inactive Member Role Status Dates Dr. Bubba Zhu MD Primary Care Provider Active Start: March 11, 2024 End: March 11, 2024 Dr. Bubba Zhu MD Referring Provider Active Start: March 11, 2024 End: March 11, 2024 Dr. Orlando Vera MD Attending Provider Active Start: March 11, 2024 End: March 11, 2024 Team Status: Inactive Member Role Status Dates Dr. Bubba Zhu MD Primary Care Provider Active Start: March 21, 2024 End: March 21, 2024 Dr. Bubba Zhu MD Attending Provider Active Start: March 21, 2024 End: March 21, 2024 Dr. Bubba Zhu MD Referring Provider Active Start: March 21, 2024 End: March 21, 2024 Team Status: Inactive Member Role Status Dates Dr. Bubba Zhu MD Primary Care Provider Active Start: April 06, 2024 End: April 06, 2024 Dr. Bubba Zhu MD Attending Provider Active Start: April 06, 2024 End: April 06, 2024 Dr. Bubba Zhu MD Referring Provider Active Start: April 06, 2024 End: April 06, 2024 Team Status: Inactive Member Role Status Dates Dr. Bubba Zhu MD Primary Care Provider Active Start: June 01, 2024 End: June 01, 2024 Dr. Aldo White MD Attending Provider Active Start: June 01, 2024 End: June 01, 2024 Dr. Aldo White MD Referring Provider Active Start: June 01, 2024 End: June 01, 2024 Team Status: Inactive Member Role Status Dates Dr. Bubba Zhu MD Primary Care Provider Active Start: June 11, 2024 End: June 11, 2024 Dr. Aldo White MD Attending Provider Active Start: June 11, 2024 End: June 11, 2024 Dr. Aldo White MD Referring Provider Active Start: June 11, 2024 End: June 11, 2024 Team Status: Active Member Role/Relationship Status Dates Dr. Bubba Zhu MD Primary Care Provider Active Team Status: Inactive Member Role/Relationship Status Dates Dr. Bubba Zhu MD Primary Care Provider Active Start: June 29, 2024 End: June 29, 2024 Dr. Bubba Zhu MD Attending Provider Active Start: June 29, 2024 End: June 29, 2024 Dr. Bubba Zhu MD Referring Provider Active Start: June 29, 2024 End: June 29, 2024 Team Status: Inactive Member Role/Relationship Status Dates Dr. Bubba Zhu MD Primary Care Provider Active Start: October 12, 2024 End: October 12, 2024 Dr. Bubba Zhu MD Attending Provider Active Start: October 12, 2024 End: October 12, 2024 Dr. Bubba Zhu MD Referring Provider Active Start: October 12, 2024 End: October 12, 2024 FOR RECORDS PERTAINING TO PATIENTS WHO ARE [...] BE BASED ON THE PRIMARY CLINICAL RECORDS. [facility]. provides no warranty or guarantee of the accuracy or completeness of information in this document.
== END | disposition home or self-care (01) ==
LOC: BIMLAB 10:20
PROVIDERS: PCP Internal Medicine; Referring Provider Internal Medicine; Visit Provider Internal Medicine
DX: E78.5 Hyperlipidemia, unspecified (principal); E11.9 Type 2 diabetes mellitus without complications; E03.9 Hypothyroidism, unspecified; M85.80 Other specified disorders of bone density and structure, unspecified site
CPT/HCPCS: 36415; 80053; 80061; 82043; 82306; 82570; 83036; 84443

== ENCOUNTER → 2025-03-13 | Outpatient (CLI) | payer MEDICARE, SELFPAY ==
[2025-03-13 10:47] LABS: Hematocrit 35.0 % (37-47); Hemoglobin 11.5 g/dL (12.0-15.0); Immature Granulocytes Count 0.170 X10^3/uL (0.0-0.0); Mean Corp Hgb Conc 32.9 g/dL (32-36); Mean Corpuscular Volume 87.9 fL (81-99); Mean Platelet Vol. 9.9 fl (6.2-12.0); NRBC Flagged by Analyzer 0 % (0-5); Platelet Count 428 K/mm3 (150-450); RBC Distribution Width CV 14.3 % (11.6-14.6); RBC Distribution Width SD 46.0 fl (35.1-43.9); Red Blood Count 3.98 M/mm3 (4.2-5.4); White Blood Count 13.4 K/mm3 (4.4-11.0)
[2025-03-13 11:24] LABS: AST(SGOT) 12 U/L (<=31); Alanine Aminotransfer ALT/SGPT 12 U/L (<=34); Albumin, Serum 4.4 g/dL (3.4-4.8); Alkaline Phosphatase 47 U/L (35-104); Anion Gap 11 (5-15); BUN 24 mg/dL (4-19); BUN/Creat Ratio 29.0 RATIO (10-20); Calcium,Total 10.0 mg/dL (7.6-11.0); Carbon Dioxide 26.6 mmol/L (21.0-32.0); Chloride 102 mmol/L (98-108); Cholesterol 198 mg/dL (<=200); Globulin 2.6 g/dL (2.2-4.2); Glucose 130 mg/dL (70-99); Low Density Lipoprotein Calc. 109 mg/dL; Magnesium 1.8 mg/dL (1.5-2.2); Potassium 4.2 mmol/L (3.3-5.1); Triglycerides 162 mg/dL; Very Low Density Lipoprotein 32 mg/dL (5-40); Vitamin B12 303 pg/mL (180-914); Vitamin D,25 Hydroxy 58.4 ng/mL (30-100); cholesterol:hdl ratio screen 3.24
== END | disposition home or self-care (01) ==
LOC: MTLAB 08:44
PROVIDERS: PCP Internal Medicine; Referring Provider Nurse Practitioner Family; Visit Provider Nurse Practitioner Family
DX: E03.9 Hypothyroidism, unspecified (principal); E11.9 Type 2 diabetes mellitus without complications; I10 Essential (primary) hypertension
CPT/HCPCS: 36415; 80053; 80061; 82306; 82607; 83036; 83735; 84443; 85025